=== PATIENT | male | born 1950 | race Caucasian/White ===

== ENCOUNTER → 2016-04-18 | Day surgery (SDC) | payer MEDICARE, OTHER ==
[~2016-04-18] MED LIST: LIDOCAINE 1% INJ-PF (10 MG/ML) 30 ML SDV ONE
== END ==
LOC: RAD 12:43
PROVIDERS: ATTEND Orthopaedic Surgery
PROC: BP08ZZZ Plain Radiography of Right Shoulder (ICD-10-PCS; principal; 2016-04-18)
DX: M25.511 Pain in right shoulder (principal)
CPT/HCPCS: 73222; 73040; 77002; A9576; J3490

== ENCOUNTER → 2016-08-27 | Outpatient (CLI) | payer MEDICARE, OTHER ==
--- NOTE | 2016-08-27 17:01 | RADIOLOGY REPORT (SQ) ---
EXAM DESCRIPTION: CHEST PA/LATERAL COMPLETED DATE/TIME: 08/27/2016 4:52 pm REASON FOR STUDY: SHORTNESS OF BREATH COMPARISON: 08/19/2014 EXAM PARAMETERS: NUMBER OF VIEWS: two views TECHNIQUE: Digital Frontal and Lateral radiographic views of the chest acquired. RADIATION DOSE: NA LIMITATIONS: none FINDINGS: LUNGS AND PLEURA: Scarring at the lung bases. No effusions. No opacities. MEDIASTINUM AND HILAR STRUCTURES: No masses or contour abnormalities. HEART AND VASCULAR STRUCTURES: Heart normal size. No evidence for failure. BONES: No acute findings. HARDWARE: None in the chest. OTHER: No other significant finding. IMPRESSION: Bibasilar scarring. No acute opacities. TECHNICAL DOCUMENTATION: JOB ID: [id number] [employer]- All Rights Reserved
== END ==
LOC: OD 16:15
PROVIDERS: ATTEND Family Medicine
DX: R06.02 Shortness of breath (principal)
CPT/HCPCS: 71020

== ENCOUNTER → 2016-12-28 | Outpatient (CLI) | payer MEDICARE, OTHER ==
--- NOTE | 2016-12-28 15:50 | RADIOLOGY REPORT (SQ) ---
EXAM DESCRIPTION: CTA CHEST COMPLETED DATE/TIME: 12/28/2016 3:25 pm REASON FOR STUDY: SHORTNESS OF BREATH R06.02 SHORTNESS OF BREATH COMPARISON: None. TECHNIQUE: CT scan of the chest performed using helical scanning technique with dynamic intravenous contrast injection. Images reviewed with lung, soft tissue and bone windows. Reconstructed coronal and sagittal MPR images reviewed. Additional 3 dimensional post-processing performed to develop Maximal Intensity Projection images ([place] P). All images stored on PACS. All CT scanners at this facility use dose modulation, iterative reconstruction, and/or weight based d osing when appropriate to reduce radiation dose to as low as reasonably achievable (ALARA). [facility]: Dose Right [facility]: CareDose [facility]: Dose Right [facility]: Teradose 4D [facility]: [employer] CONTRAST TYPE AND DOSE: contrast/concentration: Isovue 370.00 mg/ml; Total Contrast Delivered: 68.0 ml; Total Saline Delivered: 94.3 ml Contrast bolus optimized for the pulmonary arteries. Not diagnostic for the aorta. RENAL FUNCTION: Creatinine 0.9 BUN 17 RADIATION DOSE: Up-to-date CT equipment and radiation dose reduction techniques were employed. CTDIv ol: 9.4 - 12.2 mGy. DLP: 559 mGy-cm. . LIMITATIONS: None. FINDINGS: LUNGS AND PLEURA: There is a spiculated 14 mm nodule in the left lung on image 36 series 4 . AORTA AND GREAT VESSELS: No aneurysm. Contrast bolus not optimized for the aorta. HEART: No pericardial effusion. PULMONARY ARTERIES: There is a transition between bright contrast and less bright opacification in th e right lower lobe pulmonary artery. This is best seen on image 60 series 603 and image 72 series 60 4. On images 75 through 77 series 3 there is questionably a filling defect in the right pulmonary ar davian prior to the bifurcation. HILAR AND MEDIASTINAL STRUCTURES: No identified masses or abnormal nodes. HARDWARE: None in the chest. UPPER ABDOMEN: No significant findings. Limited exam. THYROID AND OTHER SOFT TISSUES: No masses. No adenopathy. BONES: There is a prominent lytic defect the posterior aspect of what appears to be the T7 vertebral body. 3D MIPS: Confirm above findings. OTHER: No other significant finding. IMPRESSION: 1. Spiculated 14 mm nodule in the left lung as described. Suspected metastasis at T7. 2. Positive for embolus in the right lower lobe artery with questionable small filling defect right main pulmonary artery immediately before the bifurcation. COMMENT: Quality ID # 436: Final reports with documentation of one or more dose reduction techniques (e.g., Automated exposure control, adjustment of the mA and/or kV according to patient size, use of iterative reconstruction technique) TECHNICAL DOCUMENTATION: JOB ID: [id number] [employer]- All Rights Reserved
== END ==
LOC: RAD 14:52
PROVIDERS: ATTEND Family Medicine
DX: R06.02 Shortness of breath (principal)
CPT/HCPCS: 71275

== ENCOUNTER → 2017-01-08 | Outpatient (CLI) | payer MEDICARE, OTHER ==
--- NOTE | 2017-01-09 08:45 | RADIOLOGY REPORT (SQ) ---
EXAM DESCRIPTION: PET CT SKULL/THIGH COMPLETED DATE/TIME: 01/08/2017 8:56 pm REASON FOR STUDY: LUNG CANCER C34.32 MALIGNANT NEOPLASM OF LOWER LOBE, LEFT BRONCHUS OR SAURAV COMPARISON: CT angio chest 12/28/2016 RADIONUCLIDE AND DOSE: 10.1 mCi F18 FDG The route of agent administration: Intravenous FASTING BLOOD SUGAR: 85 mg/dl CONTRAST TYPE AND DOSE: No CT contrast given. TECHNIQUE: Blood glucose level was verified. Above dose of FDG was injected intravenously. 2-D seg mented attenuation correction images were obtained from the base of the skull to the midthighs. Nonc ontrast CT images were obtained for attenuation correction and fusion with emission images. CT image s were performed without oral or intravenous contrast and are not sensitive for parenchymal lesions. A series of overlapping emission PET images were obtained. Images reviewed and manipulated at [facility] work station by the radiologist. Images stored on PACS. LIMITATIONS: None. FINDINGS: HEAD AND NECK: No areas of abnormal metabolic activity in the soft tissues of the head and neck. CHEST: In the left lower lobe, a spiculated 1.5 x 1.2 cm nodule is present on axial image 101, with S UV of 6.6. There are hypermetabolic mediastinal lymph nodes as follows: Prevascular 1.0 x 0.6 cm node image 91, SUV of 3 Sub- carinal 1.2 x 0.7 cm node image 102, SUV 6.0 Left lower hilum subcentimeter new lymph node difficult to measure on axial image 102, SUV 5.9 ABDOMEN AND PELVIS: No areas of abnormal metabolic activity in the abdomen or pelvis. Expected physi ologic activity is present in the genitourinary system and bowel. PROXIMAL LOWER EXTREMITIES: No areas of abnormal metabolic activity in the soft tissues of the lower extremities. BONES: A lytic lesion is present in the T7 vertebral body with destruction of the posterior vertebral body bony cortex, best shown on axial image 98. This has SUV of 11. Minimal ventral epidural tumor may be present. Other skeletal lesions are as follows: Left 4th rib laterally SUV 4.1 Right innominate bone superiorly SUV 6.2 Right innominate bone along the posterior acetabular roof SUV 9.7 Left sacrum at the S1 level SUV 10.2 Left innominate bone SUV 6.[address] FINDINGS: Degenerative changes in the cervical and lumbar spine. Minimal coronary karma ry calcifications. Small hiatal hernia OTHER: Liver background activity 2.4 SUV. Blood pool background activity 1.7 SUV IMPRESSION: Hypermetabolic left lung nodules worrisome for malignancy. Mediastinal adenopathy Bony metastatic lesions, the largest lesions are in T7, the left sacrum, and the right innominate bon e near the acetabulum roof TECHNICAL DOCUMENTATION: JOB ID: [id number] [employer]- All Rights Reserved
== END ==
LOC: RAD 17:20
PROVIDERS: ATTEND Internal Medicine
DX: C34.32 Malignant neoplasm of lower lobe, left bronchus or lung (principal)
CPT/HCPCS: 78815; A9552

== ENCOUNTER → 2017-03-13 | Outpatient (CLI) | payer MEDICARE, OTHER ==
--- NOTE | 2017-03-13 12:08 | RADIOLOGY REPORT (SQ) ---
EXAM DESCRIPTION: CT CHEST WITH; CT ABD/PELVIS WITH IV ONLY COMPLETED DATE/TIME: 03/13/2017 9:46 am REASON FOR STUDY: LUNG CA (C34.32) C34.32 MALIGNANT NEOPLASM OF LOWER LOBE, LEFT BRONCHUS OR SAURAV COMPARISON: CT angio chest 12/28/2016 PET-CT 01/08/2017 CONTRAST TYPE AND DOSE: contrast/concentration: Isovue 370.00 mg/ml; Total Contrast Delivered: 91.0 ml; Total Saline Delivered: 54.0 ml RENAL FUNCTION: Creatinine 0.9 TECHNIQUE: CT scan of the chest performed using helical scanning technique with dynamic intravenous contrast injection. Images reviewed with lung, soft tissue and bone windows. Reconstructed coronal a nd sagittal MPR images reviewed. All images stored on PACS. CT scan of the abdomen and pelvis performed with intravenous and without oral contrastusing helical s mekhi technique with dynamic intravenous contrast injection. Images reviewed with lung, soft tissu e and bone windows. Reconstructed coronal and sagittal MPR images reviewed. Delayed images for eval uation of the urinary system also acquired and evaluated. All images stored on PACS. All CT scanners at this facility use dose modulation, iterative reconstruction, and/or weight based d osing when appropriate to reduce radiation dose to as low as reasonably achievable (ALARA). [facility]: Dose Right [facility]: CareDose [facility]: Dose Right [facility]: Teradose 4D [facility]: [employer] RADIATION DOSE: CT Rad equipment meets quality standard of care and radiation dose reduction techniq ues were employed. CTDIvol: 6.3 - 8.0 mGy. DLP: 1123 mGy-cm. . LIMITATIONS: None. FINDINGS: CHEST: LUNGS AND PLEURA: Spiculated left lower lobe nodule is present, 1.2 x 1 cm in size on axial image 69 (was 1.5 x 1.2 cm on 01/08/2017). There are surrounding radiotherapy treatment markers on today's CT scan. Remainder of the lungs demonstrate minimal bibasilar atelectasis. Diffuse obstructive lung disease w ith hyperinflation and hyperlucency. No pleural effusion. No pneumothorax. HILAR AND MEDIASTINAL STRUCTURES: No identified masses or abnormal nodes. HEART AND VASCULAR STRUCTURES: No aneurysm or dissection. No central pulmonary emboli. No pericardi al effusion. Mild coronary artery calcification. HARDWARE: None. THYROID AND OTHER SOFT TISSUES: No masses. No adenopathy. BONES: Again, a lytic lesion is present in the posterior half of the T7 vertebral body, best shown on axial image 31. This is similar compared to PET-CT 01/08/2017. Rib metastatic lesions are more di fficult to appreciate on CT. OTHER: No other significant finding. ABDOMEN AND PELVIS: LIVER: Normal size. No masses. No dilated ducts. SPLEEN: Normal size. No focal lesions. PANCREAS: No masses. No significant calcifications. No adjacent inflammation or peripancreatic fluid collections. Pancreatic duct not dilated. GALLBLADDER: No identified stones by CT criteria. No inflammatory changes to suggest cholecystitis. ADRENAL GLANDS: No significant masses or asymmetry. RIGHT KIDNEY AND URETER: No solid masses. 1.4 cm right midpole renal cortical cyst. No significant calcification. No hydronephrosis or hydroureter. LEFT KIDNEY AND URETER: No solid masses. No significant calcification. No hydronephrosis or hydrouret er. AORTA AND VESSELS: No aneurysm. No dissection. Renal arteries, SMA, celiac without stenosis. RETROPERITONEUM: No retroperitoneal adenopathy, hemorrhage or masses. BOWEL AND PERITONEAL CAVITY: No masses or inflammatory changes. No free fluid or peritoneal masses. APPENDIX: Normal. ABDOMINAL WALL: No masses. Tiny fat containing umbilical hernia and bilateral inguinal hernias. BONES: There are new lytic metastatic lesions in L1, L2, and L3 vertebral bodies compared to 01/09/20 17 PET-CT. Stable lytic lesions in the right innominate bone, left sacrum, left innominate bone, and right posterior acetabular roof OTHER: No other significant finding. IMPRESSION: Slight decrease in primary left lower lobe lung mass compared to prior exams. Stable T7 vertebral body metastatic lesion, stable metastatic lesions in the bony pelvis New L1, L2, and L3 vertebral body metastatic lesions NORMAL CT OF THE ABDOMEN AND PELVIS WITH ORAL AND INTRAVENOUS CONTRAST. TECHNICAL DOCUMENTATION: JOB ID: [id number] Quality ID # 436: Final reports with documentation of one or more dose reduction techniques (e.g., Au tomated exposure control, adjustment of the mA and/or kV according to patient size, use of iterative reconstruction technique) 2010 [employer]- All Rights Reserved
== END ==
LOC: RAD 09:00
PROVIDERS: ATTEND Internal Medicine
DX: C34.32 Malignant neoplasm of lower lobe, left bronchus or lung (principal)
CPT/HCPCS: 71260; 74177

== ENCOUNTER → 2017-04-26 | Outpatient (CLI) | payer MEDICARE, OTHER ==
--- NOTE | 2017-04-26 11:54 | RADIOLOGY REPORT (SQ) ---
EXAM DESCRIPTION: CT ABD/PELVIS WITH IV ONLY COMPLETED DATE/TIME: 04/26/2017 10:47 am REASON FOR STUDY: LUNG CA (C34.32) C34.32 MALIGNANT NEOPLASM OF LOWER LOBE, LEFT BRONCHUS OR SAURAV COMPARISON: 03/13/2017 TECHNIQUE: CT scan of the abdomen and pelvis performed using helical scanning technique with dynamic intravenous contrast injection. No oral contrast. Images reviewed with lung, soft tissue, and bone windows. Reconstructed coronal and sagittal MPR images reviewed. Delayed images for evaluation of the urinary system also acquired. All images stored on PACS. All CT scanners at this facility use dose modulation, iterative reconstruction, and/or weight based d osing when appropriate to reduce radiation dose to as low as reasonably achievable (ALARA). [facility]: Dose Right [facility]: CareDose [facility]: Dose Right [facility]: Teradose 4D [facility]: [employer] CONTRAST TYPE AND DOSE: contrast/concentration: Isovue 370.00 mg/ml; Total Contrast Delivered: 91.0 ml; Total Saline Delivered: 51.9 ml RENAL FUNCTION: Not recorded. RADIATION DOSE: CT Rad equipment meets quality standard of care and radiation dose reduction techniq ues were employed. CTDIvol: 7.6 - 9.9 mGy. DLP: 1389 mGy-cm.. LIMITATIONS: None. FINDINGS: LOWER CHEST: See separate report of the CT of the chest. LIVER: Normal size. No masses. No dilated ducts. SPLEEN: Normal size. No focal lesions. PANCREAS: No masses. No significant calcifications. No adjacent inflammation or peripancreatic fluid collections. Pancreatic duct not dilated. GALLBLADDER: No identified stones by CT criteria. No inflammatory changes to suggest cholecystitis. ADRENAL GLANDS: No significant masses or asymmetry. RIGHT KIDNEY AND URETER: No solid masses. No significant calcifications. No hydronephrosis or hyd roureter. LEFT KIDNEY AND URETER: No solid masses. No significant calcifications. No hydronephrosis or hydr oureter. AORTA AND VESSELS: No aneurysm. No dissection. Renal arteries, SMA, celiac without stenosis. RETROPERITONEUM: No retroperitoneal adenopathy, hemorrhage or masses. BOWEL AND PERITONEAL CAVITY: No masses or inflammatory changes. No free fluid or peritoneal masses. APPENDIX: Normal. PELVIS: No mass. No free fluid. Normal bladder. ABDOMINAL WALL: No masses. No hernias. BONES: Metastatic disease is once again seen in lumbar spine and pelvis, appearing stable. OTHER: No other significant finding. IMPRESSION: Osseous metastases that appear to be stable. TECHNICAL DOCUMENTATION: JOB ID: [id number] Quality ID # 436: Final reports with documentation of one or more dose reduction techniques (e.g., Au tomated exposure control, adjustment of the mA and/or kV according to patient size, use of iterative reconstruction technique) 2010 [employer]- All Rights Reserved Reading location - IP/workstation name: [email or web address]
--- NOTE | 2017-04-26 12:12 | RADIOLOGY REPORT (SQ) ---
EXAM DESCRIPTION: CT CHEST WITH COMPLETED DATE/TIME: 04/26/2017 10:47 am REASON FOR STUDY: LUNG CA (C34.32) C34.32 MALIGNANT NEOPLASM OF LOWER LOBE, LEFT BRONCHUS OR SAURAV COMPARISON: 03/13/2017 TECHNIQUE: CT scan of the chest performed using helical scanning technique with dynamic intravenous contrast injection. Images reviewed with lung, soft tissue and bone windows. Reconstructed coronal and sagittal MPR images reviewed. All images stored on PACS. All CT scanners at this facility use dose modulation, iterative reconstruction, and/or weight based d osing when appropriate to reduce radiation dose to as low as reasonably achievable (ALARA). [facility]: Dose Right [facility]: CareDose [facility]: Dose Right [facility]: Teradose 4D [facility]: [employer] CONTRAST TYPE AND DOSE: 91 cc Isovue 370- low osmolar. RENAL FUNCTION: Not recorded RADIATION DOSE: 49 mGy cm LIMITATIONS: None. FINDINGS: LUNGS AND PLEURA: There is a spiculated lesion in the superior aspect of the left lower lo be seen best on image 71 series 6. This measures 11 mm in AP diameter and 9 mm in transverse diamete r. This appears to be slightly smaller than on the study from February. No new pulmonary nodule is s een. HILAR AND MEDIASTINAL STRUCTURES: No identified masses or abnormal nodes. HEART AND VASCULAR STRUCTURES: No aneurysm or dissection. No central pulmonary emboli. No pericardi al effusion. HARDWARE: None in the chest. UPPER ABDOMEN: See separate report of the CT of the abdomen. THYROID AND OTHER SOFT TISSUES: No masses. No adenopathy. BONES: Once again the T7 metastasis is seen. There appears to be a metastatic lesion and the left 3r d or 4th rib. OTHER: No other significant finding. IMPRESSION: 1. The primary spiculated lesion in apical aspect of the left lower lobe is slightly sm aller than on the study from March 13. 2. Osseous metastases are once again seen with no obvious change. TECHNICAL DOCUMENTATION: JOB ID: [id number] Quality ID # 436: Final reports with documentation of one or more dose reduction techniques (e.g., Au tomated exposure control, adjustment of the mA and/or kV according to patient size, use of iterative reconstruction technique) 2010 [employer]- All Rights Reserved Reading location - IP/workstation name: [email or web address]
--- NOTE | 2017-04-26 12:22 | RADIOLOGY REPORT (SQ) ---
EXAM DESCRIPTION: CT HEAD COMBO COMPLETED DATE/TIME: 04/26/2017 10:47 am REASON FOR STUDY: DIZZINESS AND HEADACHES C34.32 MALIGNANT NEOPLASM OF LOWER LOBE, LEFT BRONCHUS OR SAURAV COMPARISON: 04/26/2009 TECHNIQUE: Axial images acquired through the brain without and with intravenous contrast. Images re viewed with bone, brain and subdural windows. Images stored on PACS. All CT scanners at this facility use dose modulation, iterative reconstruction, and/or weight based d osing when appropriate to reduce radiation dose to as low as reasonably achievable (ALARA). [facility]: Dose Right [facility]: CareDose [facility]: Dose Right [facility]: Teradose 4D [facility]: [employer] CONTRAST TYPE AND DOSE: 91 cc Isovue 370- low osmolar. RENAL FUNCTION: Not recorded RADIATION DOSE: CT Rad equipment meets quality standard of care and radiation dose reduction techniq ues were employed. CTDIvol: 49.0 mGy. DLP: 881 mGy-cm.. LIMITATIONS: None. FINDINGS: VENTRICLES: Normal size and contour. CEREBRUM: No hemorrhage. No enhancing lesions. 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 CEREBELLUM: No masses. No hemorrhage. No alteration of density. No evidence for acute infarction. No enhancing lesions. EXTRA-AXIAL SPACES: No fluid collections. No enhancing lesions. ORBITS AND GLOBE: No intra- or extraconal masses. Normal contour of globe without masses. CALVARIUM: No fracture. PARANASAL SINUSES: No fluid or mucosal thickening. SOFT TISSUES: No mass or hematoma. OTHER: No other significant finding. IMPRESSION: There are stable old ischemic changes with no evidence of metastatic disease to the brai n or calvarium. EVIDENCE OF ACUTE STROKE: NO. TECHNICAL DOCUMENTATION: JOB ID: [id number] Quality ID # 436: Final reports with documentation of one or more dose reduction techniques (e.g., Au tomated exposure control, adjustment of the mA and/or kV according to patient size, use of iterative reconstruction technique) 2010 [employer]- All Rights Reserved Reading location - IP/workstation name: [email or web address]
== END ==
LOC: RAD 09:21
PROVIDERS: ATTEND Internal Medicine
DX: C34.32 Malignant neoplasm of lower lobe, left bronchus or lung (principal)
CPT/HCPCS: 70470; 71260; 74177

== ENCOUNTER → 2017-06-07 | Outpatient (CLI) | payer MEDICARE, OTHER ==
--- NOTE | 2017-06-07 13:23 | RADIOLOGY REPORT (SQ) ---
EXAM DESCRIPTION: FOOT RIGHT COMPLETE COMPLETED DATE/TIME: 06/07/2017 1:13 pm REASON FOR STUDY: PAIN IN RIGHT FOOT M79.671 PAIN IN RIGHT FOOT COMPARISON: None. NUMBER OF VIEWS: Three views. TECHNIQUE: AP, lateral and oblique radiographic images acquired of the right foot. LIMITATIONS: None. FINDINGS: MINERALIZATION: Normal. BONES: No acute fracture or dislocation. No worrisome bone lesions. JOINTS: Degenerative joint changes are present in the 1st metatarsal-phalangeal joint. SOFT TISSUES: No soft tissue swelling. No foreign body. OTHER: No other significant finding. IMPRESSION: Degenerative joint disease in the 1st metatarsal-phalangeal joint appear TECHNICAL DOCUMENTATION: JOB ID: [id number] [employer]- All Rights Reserved Reading location - IP/workstation name: [email or web address]
[2017-06-07 14:10] LABS: ANION GAP 12 (5-19); BLOOD UREA NITROGEN 24 mg/dL (7-20); CALCIUM 9.8 mg/dL (8.4-10.2); CARBON DIOXIDE 30 mmol/L (22-30); CHLORIDE 102 mmol/L (98-107); GLUCOSE 178 mg/dL (75-110); POTASSIUM 4.5 mmol/L (3.6-5.0); SODIUM 143.6 mmol/L (137-145); URIC ACID 8.4 mg/dL (3.5-8.5)
== END ==
LOC: OD 12:33
PROVIDERS: ATTEND Family Medicine
DX: M79.671 Pain in right foot (principal)
CPT/HCPCS: 36415; 80048; 84550

== ENCOUNTER → 2017-06-28 | Outpatient (CLI) | payer MEDICARE, OTHER ==
--- NOTE | 2017-06-28 10:24 | RADIOLOGY REPORT (SQ) ---
EXAM DESCRIPTION: CT CHEST WITH COMPLETED DATE/TIME: 06/28/2017 8:40 am REASON FOR STUDY: LUNG CA (C34.32) C34.32 MALIGNANT NEOPLASM OF LOWER LOBE, LEFT BRONCHUS OR SAURAV COMPARISON: 04/26/2017 TECHNIQUE: CT scan of the chest performed using helical scanning technique with dynamic intravenous contrast injection. Images reviewed with lung, soft tissue and bone windows. Reconstructed coronal and sagittal MPR images reviewed. All images stored on PACS. All CT scanners at this facility use dose modulation, iterative reconstruction, and/or weight based d osing when appropriate to reduce radiation dose to as low as reasonably achievable (ALARA). [facility]: Dose Right [facility]: CareDose [facility]: Dose Right [facility]: Teradose 4D [facility]: [employer] CONTRAST TYPE AND DOSE: See separate report of the same date. RENAL FUNCTION: See separate report of the same date. RADIATION DOSE: . LIMITATIONS: None. FINDINGS: LUNGS AND PLEURA: Spiculated nodule superior segment left lower lobe measures about 9 x 11 mm, not significantly changed. No new nodules are identified. Centrilobular emphysema. No effusio ns. HILAR AND MEDIASTINAL STRUCTURES: No identified masses or abnormal nodes. HEART AND VASCULAR STRUCTURES: No aneurysm or dissection. No central pulmonary emboli. No pericardi al effusion. HARDWARE: None in the chest. UPPER ABDOMEN: See separate report of the CT of the abdomen. THYROID AND OTHER SOFT TISSUES: No masses. No adenopathy. BONES: Mixed sclerotic lytic lesion T7, left 4th rib unchanged. OTHER: No other significant finding. IMPRESSION: Stable pulmonary nodule left lower lobe. Stable bone metastasis. TECHNICAL DOCUMENTATION: JOB ID: [id number] Quality ID # 436: Final reports with documentation of one or more dose reduction techniques (e.g., Au tomated exposure control, adjustment of the mA and/or kV according to patient size, use of iterative reconstruction technique) 2010 [employer]- All Rights Reserved Reading location - IP/workstation name: Unknown
--- NOTE | 2017-06-28 11:26 | RADIOLOGY REPORT (SQ) ---
EXAM DESCRIPTION: CT ABD/PELVIS WITH IV ONLY COMPLETED DATE/TIME: 06/28/2017 8:40 am REASON FOR STUDY: LUNG CA (C34.32) C34.32 MALIGNANT NEOPLASM OF LOWER LOBE, LEFT BRONCHUS OR SAURAV COMPARISON: 04/26/2017 TECHNIQUE: CT scan of the abdomen and pelvis performed using helical scanning technique with dynamic intravenous contrast injection. No oral contrast. Images reviewed with lung, soft tissue, and bone windows. Reconstructed coronal and sagittal MPR images reviewed. Delayed images for evaluation of the urinary system also acquired. All images stored on PACS. All CT scanners at this facility use dose modulation, iterative reconstruction, and/or weight based d osing when appropriate to reduce radiation dose to as low as reasonably achievable (ALARA). [facility]: Dose Right [facility]: CareDose [facility]: Dose Right [facility]: Teradose 4D [facility]: [employer] CONTRAST TYPE AND DOSE: 100 cc Isovue 300- low osmolar. RENAL FUNCTION: GFR > 60. RADIATION DOSE: . LIMITATIONS: None. FINDINGS: LOWER CHEST: See separate report of the CT of the chest. LIVER: Normal size. No masses. No dilated ducts. SPLEEN: Benign hemangiomas. PANCREAS: No masses. No significant calcifications. No adjacent inflammation or peripancreatic fluid collections. Pancreatic duct not dilated. GALLBLADDER: No identified stones by CT criteria. No inflammatory changes to suggest cholecystitis. ADRENAL GLANDS: No significant masses or asymmetry. RIGHT KIDNEY AND URETER: No solid masses. No significant calcifications. No hydronephrosis or hyd roureter. LEFT KIDNEY AND URETER: No solid masses. No significant calcifications. No hydronephrosis or hydr oureter. AORTA AND VESSELS: No aneurysm. No dissection. Renal arteries, SMA, celiac without stenosis. RETROPERITONEUM: No retroperitoneal adenopathy, hemorrhage or masses. BOWEL AND PERITONEAL CAVITY: No masses or inflammatory changes. No free fluid or peritoneal masses. APPENDIX: Normal. PELVIS: No mass. No free fluid. Normal bladder. ABDOMINAL WALL: No masses. No hernias. BONES: Stable lytic lesions in the pelvis and sacrum. OTHER: No other significant finding. IMPRESSION: Stable bone metastasis. No significant change. TECHNICAL DOCUMENTATION: JOB ID: [id number] Quality ID # 436: Final reports with documentation of one or more dose reduction techniques (e.g., Au tomated exposure control, adjustment of the mA and/or kV according to patient size, use of iterative reconstruction technique) 2010 [employer]- All Rights Reserved Reading location - IP/workstation name: Unknown
== END ==
LOC: RAD 08:00
PROVIDERS: ATTEND Physician Assistant Medical
DX: C34.32 Malignant neoplasm of lower lobe, left bronchus or lung (principal); C79.51 Secondary malignant neoplasm of bone
CPT/HCPCS: 71260; 74177

== ENCOUNTER → 2017-08-29 | Outpatient (CLI) | payer MEDICARE, OTHER ==
--- NOTE | 2017-08-29 09:41 | RADIOLOGY REPORT (SQ) ---
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 Images reviewed with lung, soft tissue and bone windows. Reconstructed coronal a nd sagittal MPR images reviewed. All images stored on PACS. CT scan of the abdomen and pelvis performed with intravenous and without oral contrastusing helical s mekhi technique with dynamic intravenous contrast injection. Images reviewed with lung, soft tissu e and bone windows. Reconstructed coronal and sagittal MPR images reviewed. Delayed images for eval uation of the urinary system also acquired and evaluated. All images stored on PACS. All CT scanners at this facility use dose modulation, iterative reconstruction, and/or weight based d osing when appropriate to reduce radiation dose to as low as reasonably achievable (ALARA). [facility]: Dose Right [facility]: CareDose [facility]: Dose Right [facility]: Teradose 4D [facility]: [employer] RADIATION DOSE: CT Rad equipment meets quality standard of care and radiation dose reduction techniq ues were employed. CTDIvol: 8.0 - 11.4 mGy. DLP: 1526 mGy-cm. . LIMITATIONS: None. FINDINGS: CHEST: LUNGS AND PLEURA: Minimal left lower lobe bandlike scarring is present adjacent to radiotherapy marke rs on axial images 63-66. No significant residual pulmonary nodule. There is hyperinflation from obstructive disease. Lungs are otherwise unremarkable. No pleural effu sions. No pneumothorax. No other worrisome pulmonary nodules. HILAR AND MEDIASTINAL STRUCTURES: No identified masses or abnormal nodes. HEART AND VASCULAR STRUCTURES: No aneurysm or dissection. No central pulmonary emboli. No pericardi al effusion. HARDWARE: None. THYROID AND OTHER SOFT TISSUES: No masses. No adenopathy. BONES: Stable T7 vertebral body sclerotic bony metastatic lesion OTHER: No other significant finding. ABDOMEN AND PELVIS: LIVER: Normal size. No masses. No dilated ducts. SPLEEN: Normal size. No focal lesions. PANCREAS: No masses. No significant calcifications. No adjacent inflammation or peripancreatic fluid collections. Pancreatic duct not dilated. GALLBLADDER: No identified stones by CT criteria. No inflammatory changes to suggest cholecystitis. ADRENAL GLANDS: No significant masses or asymmetry. RIGHT KIDNEY AND URETER: No solid masses. 1.4 cm cyst right mid-pole kidney. No significant calcifi cation. No hydronephrosis or hydroureter. LEFT KIDNEY AND URETER: No solid masses. No significant calcification. No hydronephrosis or hydrouret er. AORTA AND VESSELS: No aneurysm. No dissection. Renal arteries, SMA, celiac without stenosis. RETROPERITONEUM: No retroperitoneal adenopathy, hemorrhage or masses. BOWEL AND PERITONEAL CAVITY: No masses or inflammatory changes. No free fluid or peritoneal masses. APPENDIX: Normal. ABDOMINAL WALL: No masses. No hernias. PELVIS: No mass or free fluid. Normal bladder. BONES: Stable sclerotic metastatic lesions in the right acetabular roof and left S1 level OTHER: No other significant finding. IMPRESSION: Prior lung lesion in the left lower lobe is no longer visualized Stable bony metastatic sclerotic lesions in the T7, the right acetabular roof and the left S1 level. TECHNICAL DOCUMENTATION: JOB ID: [id number] Quality ID # 436: Final reports with documentation of one or more dose reduction techniques (e.g., Au tomated exposure control, adjustment of the mA and/or kV according to patient size, use of iterative reconstruction technique) 2010 [employer]- All Rights Reserved Reading location - IP/workstation name: [email or web address]
== END ==
LOC: RAD 08:37
PROVIDERS: ATTEND Physician Assistant Medical
DX: C34.32 Malignant neoplasm of lower lobe, left bronchus or lung (principal); C79.51 Secondary malignant neoplasm of bone
CPT/HCPCS: 71260; 74177

== ENCOUNTER → 2017-11-21 | Outpatient (CLI) | payer MEDICARE, OTHER ==
--- NOTE | 2017-11-21 11:14 | RADIOLOGY REPORT (SQ) ---
EXAM DESCRIPTION: CT CHEST WITH COMPLETED DATE/TIME: 11/21/2017 10:40 am REASON FOR STUDY: LUNG CA C34.32 MALIGNANT NEOPLASM OF LOWER LOBE, LEFT BRONCHUS OR SAURAV COMPARISON: 08/29/2017. 06/28/2017. TECHNIQUE: CT scan of the chest performed using helical scanning technique with dynamic intravenous contrast injection. Images reviewed with lung, soft tissue and bone windows. Reconstructed coronal and sagittal MPR and MIP images reviewed. All images stored on PACS. All CT scanners at this facility use dose modulation, iterative reconstruction, and/or weight based d osing when appropriate to reduce radiation dose to as low as reasonably achievable (ALARA). [facility]: Dose Right [facility]: CareDose [facility]: Dose Right [facility]: Teradose 4D [facility]: [employer] CONTRAST TYPE AND DOSE: Please see the abdominal CT report from same date. RENAL FUNCTION: As above. RADIATION DOSE: . LIMITATIONS: None. FINDINGS: LUNGS AND PLEURA: Minimal left lower lobe scar. No developing lesions. No pleural diseas e. HILAR AND MEDIASTINAL STRUCTURES: No identified masses or abnormal nodes. HEART AND VASCULAR STRUCTURES: Mild chronic anterior pericardial thickening. Moderate coronary calci fication. No aortic aneurysm or dissection or central pulmonary embolus. HARDWARE: None in the chest. UPPER ABDOMEN: No significant findings. Limited exam. THYROID AND OTHER SOFT TISSUES: No masses. No adenopathy. BONES: T7 sclerotic focus in the spine, stable. No developing lesions. OTHER: No other significant finding. IMPRESSION: Stable chest. No acute abdominopelvic abnormality. Findings as above. TECHNICAL DOCUMENTATION: JOB ID: [id number] Quality ID # 436: Final reports with documentation of one or more dose reduction techniques (e.g., Au tomated exposure control, adjustment of the mA and/or kV according to patient size, use of iterative reconstruction technique) 2010 [employer]- All Rights Reserved Reading location - IP/workstation name: [email or web address]
--- NOTE | 2017-11-21 11:45 | RADIOLOGY REPORT (SQ) ---
EXAM DESCRIPTION: CT ABD/PELVIS WITH IV ONLY COMPLETED DATE/TIME: 11/21/2017 10:40 am REASON FOR STUDY: LUNG CA C34.32 MALIGNANT NEOPLASM OF LOWER LOBE, LEFT BRONCHUS OR SAURAV COMPARISON: PET-CT 01/08/2017 CT abdomen pelvis 03/13/2017, 04/26/2017, 06/28/2017, 08/29/2017 no sub on each TECHNIQUE: CT scan of the abdomen and pelvis performed using helical scanning technique with dynamic intravenous contrast injection. No oral contrast. Images reviewed with lung, soft tissue, and bone windows. Reconstructed coronal and sagittal MPR images reviewed. Delayed images for evaluation of the urinary system also acquired. All images stored on PACS. All CT scanners at this facility use dose modulation, iterative reconstruction, and/or weight based d osing when appropriate to reduce radiation dose to as low as reasonably achievable (ALARA). [facility]: Dose Right [facility]: CareDose [facility]: Dose Right [facility]: Teradose 4D [facility]: [employer] CONTRAST TYPE AND DOSE: contrast/concentration: Isovue 350.00 mg/ml; Total Contrast Delivered: 91.0 ml; Total Saline Delivered: 70.0 ml RENAL FUNCTION: Creatinine 1.2 RADIATION DOSE: CT Rad equipment meets quality standard of care and radiation dose reduction techniq ues were employed. CTDIvol: 6.2 - 8.4 mGy. DLP: 1133 mGy-cm.. LIMITATIONS: None. FINDINGS: LOWER CHEST: No significant findings. No nodules or infiltrates. LIVER: Normal size. No masses. No dilated ducts. SPLEEN: Normal size. No focal lesions. PANCREAS: No masses. No significant calcifications. No adjacent inflammation or peripancreatic fluid collections. Pancreatic duct not dilated. GALLBLADDER: No identified stones by CT criteria. No inflammatory changes to suggest cholecystitis. ADRENAL GLANDS: No significant masses or asymmetry. RIGHT KIDNEY AND URETER: No solid masses. 1.4 cm cyst right mid-pole kidney. No significant calcifi cations. No hydronephrosis or hydroureter. LEFT KIDNEY AND URETER: No solid masses. No significant calcifications. No hydronephrosis or hydr oureter. AORTA AND VESSELS: No aneurysm. No dissection. Renal arteries, SMA, celiac without stenosis. RETROPERITONEUM: No retroperitoneal adenopathy, hemorrhage or masses. BOWEL AND PERITONEAL CAVITY: No masses or inflammatory changes. No free fluid or peritoneal masses. APPENDIX: Normal. PELVIS: No mass. No free fluid. Normal bladder. ABDOMINAL WALL: No masses. No hernias. BONES: No significant or acute findings. OTHER: No other significant finding. IMPRESSION: No CT evidence of metastatic lung cancer over the abdomen and pelvis TECHNICAL DOCUMENTATION: JOB ID: [id number] Quality ID # 436: Final reports with documentation of one or more dose reduction techniques (e.g., Au tomated exposure control, adjustment of the mA and/or kV according to patient size, use of iterative reconstruction technique) 2010 [email or web address]- All Rights Reserved Reading location - IP/workstation name: [email or web address]
== END ==
LOC: RAD 10:08
PROVIDERS: ATTEND Internal Medicine
DX: C34.32 Malignant neoplasm of lower lobe, left bronchus or lung (principal)
CPT/HCPCS: 71260; 74177

== ENCOUNTER → 2018-02-19 | Outpatient (CLI) | payer MEDICARE, OTHER ==
--- NOTE | 2018-02-19 08:52 | RADIOLOGY REPORT (SQ) ---
EXAM DESCRIPTION: CT CHEST WITH; CT ABD/PELVIS WITH IV ONLY COMPLETED DATE/TIME: 02/19/2018 8:19 am REASON FOR STUDY: LUNG CA C34.32 MALIGNANT NEOPLASM OF LOWER LOBE, LEFT BRONCHUS OR SAURAV COMPARISON: 11/21/2017. CONTRAST TYPE AND DOSE: contrast/concentration: Isovue 350.00 mg/ml; Total Contrast Delivered: 96.0 ml; Total Saline Delivered: 71.0 ml RENAL FUNCTION: Not provided. TECHNIQUE: CT scan of the chest performed using helical scanning technique with dynamic intravenous contrast injection. Images reviewed with lung, soft tissue and bone windows. Reconstructed coronal a nd sagittal MPR images reviewed. All images stored on PACS. CT scan of the abdomen and pelvis performed with intravenous and with oral contrastusing helical scan sanford technique with dynamic intravenous contrast injection. Images reviewed with lung, soft tissue a nd bone windows. Reconstructed coronal and sagittal MPR images reviewed. Delayed images for evaluat ion of the urinary system also acquired and evaluated. All images stored on PACS. All CT scanners at this facility use dose modulation, iterative reconstruction, and/or weight based d osing when appropriate to reduce radiation dose to as low as reasonably achievable (ALARA). [facility]: Dose Right [facility]: CareDose [facility]: Dose Right [facility]: Teradose 4D [facility]: xiao qu [employer] RADIATION DOSE: CT Rad equipment meets quality standard of care and radiation dose reduction techniq ues were employed. CTDIvol: 6.5 - 8.0 mGy. DLP: 1079 mGy-cm. . LIMITATIONS: None. FINDINGS: CHEST: LUNGS AND PLEURA: Minimal scar in the left lung with regional metallic clips suggested. Stable appea trish. No developing lesions. No pleural disease. HILAR AND MEDIASTINAL STRUCTURES: No identified masses or abnormal nodes. HEART AND VASCULAR STRUCTURES: Mild pericardial fluid. Moderate coronary calcification. No aortic a neurysm or dissection. HARDWARE: None. THYROID AND OTHER SOFT TISSUES: No masses. No adenopathy. BONES: For chronic T7 mixed sclerotic/ lytic lesion. Potential hemangioma. Tiny T5 vertebral sclero tic focus also suggested. OTHER: No other significant finding. ABDOMEN AND PELVIS: LIVER: Fatty. No lesions. SPLEEN: Several nodular enhancing foci, likely hemangiomas. Stable appearance. PANCREAS: No masses. No significant calcifications. No adjacent inflammation or peripancreatic fluid collections. Pancreatic duct not dilated. GALLBLADDER: No identified stones by CT criteria. No inflammatory changes to suggest cholecystitis. ADRENAL GLANDS: No significant masses or asymmetry. RIGHT KIDNEY AND URETER: No solid masses. No significant calcification. No hydronephrosis or hydroure ter. LEFT KIDNEY AND URETER: No solid masses. No significant calcification. No hydronephrosis or hydrouret er. AORTA AND VESSELS: Atherosclerotic. No arterial occlusion or venous clot. RETROPERITONEUM: No retroperitoneal adenopathy, hemorrhage or masses. BOWEL AND PERITONEAL CAVITY: No masses or inflammatory changes. No free fluid or peritoneal masses. APPENDIX: Normal. ABDOMINAL WALL: No masses. No hernias. PELVIS: Prostate enlargement. Normal bladder. No pelvic mass or free fluid. BONES: Stable sclerotic pelvic lesions. OTHER: No other significant finding. IMPRESSION: 1. Stable chest. No developing lesions. Sclerotic bone lesions, unchanged. 2. Stable abdomen and pelvis. Includes stable sclerotic bone lesions. TECHNICAL DOCUMENTATION: JOB ID: [id number] Quality ID # 436: Final reports with documentation of one or more dose reduction techniques (e.g., Au tomated exposure control, adjustment of the mA and/or kV according to patient size, use of iterative reconstruction technique) 2010 [employer]- All Rights Reserved Reading location - IP/workstation name: [email or web address]
== END ==
LOC: RAD 07:34
PROVIDERS: ATTEND Physician Assistant Medical
DX: C34.32 Malignant neoplasm of lower lobe, left bronchus or lung (principal)
CPT/HCPCS: 71260; 74177; 82565

== ENCOUNTER → 2018-05-21 | Outpatient (CLI) | payer MEDICARE, OTHER ==
--- NOTE | 2018-05-21 10:31 | RADIOLOGY REPORT (SQ) ---
EXAM DESCRIPTION: CT CHEST WITH COMPLETED DATE/TIME: 05/21/2018 9:29 am REASON FOR STUDY: LUNG CA (C34.32) C34.32 MALIGNANT NEOPLASM OF LOWER LOBE, LEFT BRONCHUS OR SAURAV COMPARISON: 02/19/2018 TECHNIQUE: CT scan of the chest performed using helical scanning technique with dynamic intravenous contrast injection. Images reviewed with lung, soft tissue and bone windows. Reconstructed coronal and sagittal MPR and MIP images reviewed. All images stored on PACS. All CT scanners at this facility use dose modulation, iterative reconstruction, and/or weight based d osing when appropriate to reduce radiation dose to as low as reasonably achievable (ALARA). [facility]: Dose Right [facility]: CareDose [facility]: Dose Right [facility]: Teradose 4D [facility]: [employer] CONTRAST TYPE AND DOSE: contrast/concentration: Isovue 350.00 mg/ml; Total Contrast Delivered: 100.0 ml; Total Saline Delivered: 70.0 ml 100 cc RENAL FUNCTION: BUN 16, creatinine 1.1 RADIATION DOSE: CT Rad equipment meets quality standard of care and radiation dose reduction techniq ues were employed. CTDIvol: 9.8 - 13.4 mGy. DLP: 1470 mGy-cm. . LIMITATIONS: None. FINDINGS: LUNGS AND PLEURA: Stable posttreatment changes within the left lower lobe with unchanged l inear scarring. No new nodules or masses. Emphysematous change with stable bibasilar scarring. No pleural effusion, pneumothorax or new airspace disease. HILAR AND MEDIASTINAL STRUCTURES: No identified masses or abnormal nodes. HEART AND VASCULAR STRUCTURES: No aneurysm. No dissection. Scattered aortic atherosclerosis. Scatt ered three-vessel coronary atherosclerosis. HARDWARE: None in the chest. UPPER ABDOMEN: See separate report of the CT of the abdomen. THYROID AND OTHER SOFT TISSUES: No masses. No adenopathy. BONES: Stable T6 sclerotic lesion. No new lytic or blastic lesions. No acute bony abnormality. OTHER: No other significant finding. IMPRESSION: 1. Stable appearance of the chest without evidence of new intrathoracic disease. Stabl e thoracic sclerotic lesions. 2. No evidence of acute intra thoracic process. TECHNICAL DOCUMENTATION: JOB ID: [id number] Quality ID # 436: Final reports with documentation of one or more dose reduction techniques (e.g., Au tomated exposure control, adjustment of the mA and/or kV according to patient size, use of iterative reconstruction technique) 2010 [facility] [employer]- All Rights Reserved Reading location - IP/workstation name: [email or web address]
--- NOTE | 2018-05-21 10:55 | RADIOLOGY REPORT (SQ) ---
EXAM DESCRIPTION: CT ABD/PELVIS WITH IV ONLY COMPLETED DATE/TIME: 05/21/2018 9:29 am REASON FOR STUDY: LUNG CA (C34.32) C34.32 MALIGNANT NEOPLASM OF LOWER LOBE, LEFT BRONCHUS OR SAURAV COMPARISON: 02/19/2018 TECHNIQUE: CT scan of the abdomen and pelvis performed using helical scanning technique with dynamic intravenous contrast injection. No oral contrast. Images reviewed with lung, soft tissue, and bone windows. Reconstructed coronal and sagittal MPR images reviewed. Delayed images for evaluation of the urinary system also acquired. All images stored on PACS. All CT scanners at this facility use dose modulation, iterative reconstruction, and/or weight based d osing when appropriate to reduce radiation dose to as low as reasonably achievable (ALARA). [facility]: Dose Right [facility]: CareDose [facility]: Dose Right [facility]: Teradose 4D [facility]: [employer] CONTRAST TYPE AND DOSE: 100 cc, Isovue 350 RENAL FUNCTION: BUN 16, creatinine 1.1 RADIATION DOSE: . LIMITATIONS: None. FINDINGS: LOWER CHEST: See separate report of the CT of the chest. LIVER: Normal size. No masses. No dilated ducts. SPLEEN: Normal size. No focal lesions. PANCREAS: No masses. No significant calcifications. No adjacent inflammation or peripancreatic fluid collections. Pancreatic duct not dilated. GALLBLADDER: No identified stones by CT criteria. No inflammatory changes to suggest cholecystitis. ADRENAL GLANDS: No significant masses or asymmetry. RIGHT KIDNEY AND URETER: No solid masses. Unchanged right renal cyst. No significant calcification s. No hydronephrosis or hydroureter. LEFT KIDNEY AND URETER: No solid masses. No significant calcifications. No hydronephrosis or hydr oureter. AORTA AND VESSELS: Aortoiliac atherosclerosis. No aneurysm. Patent celiac, SMA, bilateral renals an d CHLOE. RETROPERITONEUM: No retroperitoneal adenopathy, hemorrhage or masses. BOWEL AND PERITONEAL CAVITY: No masses or inflammatory changes. No free fluid or peritoneal masses. APPENDIX: Normal. PELVIS: Unremarkable urinary bladder. Prostatomegaly with scattered calcifications, stable. No pelv ic adenopathy or free fluid. ABDOMINAL WALL: Small fat containing umbilical hernia. No discrete masses. BONES: No acute bony abnormality. No new lytic or blastic osseous lesions. Unchanged sclerotic lesi ons within the bilateral ilium. Lower lumbar spondylosis and facet arthropathy. OTHER: No other significant finding. IMPRESSION: No evidence of new metastatic within the abdomen or pelvis. Stable pelvic sclerotic les ions. No evidence of acute intra-abdominal/pelvic process. TECHNICAL DOCUMENTATION: JOB ID: [id number] Quality ID # 436: Final reports with documentation of one or more dose reduction techniques (e.g., Au tomated exposure control, adjustment of the mA and/or kV according to patient size, use of iterative reconstruction technique) 2010 [employer]- All Rights Reserved Reading location - IP/workstation name: [email or web address]
== END ==
LOC: RAD 08:05
PROVIDERS: ATTEND Internal Medicine
DX: C34.32 Malignant neoplasm of lower lobe, left bronchus or lung (principal)
CPT/HCPCS: 71260; 74177

== ENCOUNTER → 2018-09-05 | Outpatient (CLI) | payer MEDICARE, OTHER ==
--- NOTE | 2018-09-05 11:28 | RADIOLOGY REPORT (SQ) ---
EXAM DESCRIPTION: CT CHEST WITH; CT ABD/PELVIS WITH IV ONLY COMPLETED DATE/TIME: 09/05/2018 9:24 am; 09/05/2018 9:23 am REASON FOR STUDY: C34.32 MALIGNANT NEOPLASM OF LOWER LOBE, LEFT BRONCHUS OR LUNG C34.32 MALIGNANT N EOPLASM OF LOWER LOBE, LEFT BRONCHUS OR SAURAV COMPARISON: CT chest abdomen pelvis 05/21/2018, 11/21/2017, 08/29/2017, 06/28/2017 PET-CT 01/08/2017 CONTRAST TYPE AND DOSE: contrast/concentration: Isovue 350.00 mg/ml; Total Contrast Delivered: 100.0 ml; Total Saline Delivered: 70.0 ml RENAL FUNCTION: Creatinine 1.3 TECHNIQUE: CT scan of the chest performed using helical scanning technique with dynamic intravenous contrast injection. Images reviewed with lung, soft tissue and bone windows. Reconstructed coronal a nd sagittal MPR images reviewed. All images stored on PACS. CT scan of the abdomen and pelvis performed with intravenous and without oral contrastusing helical s mekhi technique with dynamic intravenous contrast injection. Images reviewed with lung, soft tissu e and bone windows. Reconstructed coronal and sagittal MPR images reviewed. Delayed images for eval uation of the urinary system also acquired and evaluated. All images stored on PACS. All CT scanners at this facility use dose modulation, iterative reconstruction, and/or weight based d osing when appropriate to reduce radiation dose to as low as reasonably achievable (ALARA). [facility]: Dose Right [facility]: CareDose [facility]: Dose Right [facility]: Teradose 4D [facility]: [employer] RADIATION DOSE: CT Rad equipment meets quality standard of care and radiation dose reduction techniq ues were employed. CTDIvol: 5.4 - 7.4 mGy. DLP: 974 mGy-cm. . LIMITATIONS: None. FINDINGS: CHEST: LUNGS AND PLEURA: Post radiotherapy treatment of a mass in the superior segment left lower lobe. A s piculated scar about 1 cm in size is present on axial image 66, unchanged from multiple previous stud ies. Remainder of the lungs are otherwise unremarkable. No pleural effusion. No pneumothorax. HILAR AND MEDIASTINAL STRUCTURES: No identified masses or abnormal nodes. Small hiatal hernia HEART AND VASCULAR STRUCTURES: No aneurysm or dissection. No central pulmonary emboli. No pericardi al effusion. HARDWARE: None. THYROID AND OTHER SOFT TISSUES: No masses. No adenopathy. BONES: Stable T7 metastatic lesion OTHER: No other significant finding. ABDOMEN AND PELVIS: LIVER: Normal size. No masses. No dilated ducts. SPLEEN: Normal size. No focal lesions. PANCREAS: No masses. No significant calcifications. No adjacent inflammation or peripancreatic fluid collections. Pancreatic duct not dilated. GALLBLADDER: No identified stones by CT criteria. No inflammatory changes to suggest cholecystitis. ADRENAL GLANDS: No significant masses or asymmetry. RIGHT KIDNEY AND URETER: No solid masses. 1.5 cm cyst right mid-pole kidney. No significant calcifi cation. No hydronephrosis or hydroureter. LEFT KIDNEY AND URETER: No solid masses. No significant calcification. No hydronephrosis or hydrouret er. AORTA AND VESSELS: No aneurysm. No dissection. Renal arteries, SMA, celiac without stenosis. RETROPERITONEUM: No retroperitoneal adenopathy, hemorrhage or masses. BOWEL AND PERITONEAL CAVITY: There is an umbilical hernia containing a loop of unobstructed small bow el, best shown on coronal images 7-11 and sagittal images 35-37. Surgical consultation is recommende d. Remainder of the gastrointestinal tract is otherwise unremarkable. No free intraperitoneal air or fl uid or CT signs of bowel obstruction or diverticulitis. APPENDIX: Normal. ABDOMINAL WALL: Umbilical hernia containing a loop of unobstructed small bowel PELVIS: No mass or free fluid. Normal bladder. BONES: Stable sclerotic bony metastatic lesions in the right and left pelvis OTHER: No other significant finding. IMPRESSION: Previously treated lesion in the superior segment left lower lobe with adjacent fiducial s, residual scar measures about 1 cm in size, stable over multiple previous exams. Umbilical hernia containing a nonobstructed loop of small bowel. Surgical consultation is recommende d. Stable sclerotic bony metastatic lesions in the thoracic spine and pelvis TECHNICAL DOCUMENTATION: JOB ID: [id number] Quality ID # 436: Final reports with documentation of one or more dose reduction techniques (e.g., Au tomated exposure control, adjustment of the mA and/or kV according to patient size, use of iterative reconstruction technique) 2010 [employer]- All Rights Reserved Reading location - IP/workstation name: [email or web address]
== END ==
LOC: RAD 08:48
PROVIDERS: ATTEND Internal Medicine
DX: C34.32 Malignant neoplasm of lower lobe, left bronchus or lung (principal); C79.51 Secondary malignant neoplasm of bone
CPT/HCPCS: 71260; 74177

== ENCOUNTER 2018-10-27 06:25 | Day surgery (SDC) | payer MEDICARE, OTHER ==
[~2018-10-27 06:25] MED LIST changes: +CEFAZOLIN 1 GM/D5W RTU 1 GM/50 ML RTUPB IV PRN; +DEXTROSE 5%-1/2 NORMAL SALINE 1,000 ML IV PRN; +DIAZEPAM 5 MG TABLET PO PRN; -LIDOCAINE 1% INJ-PF (10 MG/ML) 30 ML SDV ONE; +OXYCODONE-ACETAMINOPHEN 5-325 MG TABLET PO PRN
[2018-10-27 07:03] LABS: ABSOLUTE BASOPHILS # (AUTO) 0.1 10^3/uL (0.0-0.2); ABSOLUTE EOSINOPHILS # (AUTO) 0.3 10^3/uL (0.0-0.6); ABSOLUTE LYMPHOCYTES (AUTO) 1.4 10^3/uL (0.5-4.7); ABSOLUTE MONOCYTES (AUTO) 0.8 10^3/uL (0.1-1.4); ABSOLUTE NEUT (AUTO) 4.5 10^3/uL (1.7-8.2); BASOPHILS % (AUTO) 0.8 % (0-2); EOSINOPHILS % (AUTO) 4.4 % (0-6); HEMATOCRIT 32.9 % (37.9-51.0); HEMOGLOBIN 11.1 g/dL (13.5-17.0); LYMPHOCYTES % (AUTO) 19.5 % (13-45); MEAN CORPUSCULAR HEMOGLOBIN 29.8 pg (27.0-33.4); MEAN CORPUSCULAR HGB CONC 33.7 g/dL (32.0-36.0); MEAN CORPUSCULAR VOLUME 88 fl (80-97); PLATELET COUNT 466 10^3/uL (150-450); RED BLOOD COUNT 3.73 10^6/uL (4.35-5.55); RED CELL DISTRIBUTION WIDTH 19.4 % (11.5-14.0); SEGMENTED NEUTROPHILS % (AUTO) 63.3 % (42-78); TOTAL CELLS COUNTED % (AUTO) 100 %; WHITE BLOOD COUNT 7.1 10^3/uL (4.0-10.5)
[2018-10-27] MEDS ORDERED: CEFAZOLIN 1 GM/D5W RTU 1 GM/50 ML RTUPB IV ONE (07:19)
[2018-10-27 07:21] LABS: ANION GAP 12 (5-19); BLOOD UREA NITROGEN 23 mg/dL (7-20); CALCIUM 9.4 mg/dL (8.4-10.2); CARBON DIOXIDE 25 mmol/L (22-30); CHLORIDE 104 mmol/L (98-107); GLUCOSE 101 mg/dL (75-110); POTASSIUM 3.9 mmol/L (3.6-5.0)
[2018-10-27] MEDS ORDERED: BACITRACIN INJ 50,000 UNIT VIAL ONE (07:48)
[2018-10-27] MEDS ORDERED: LIDOCAINE 0.5% INJ-PF (5 MG/ML) 50 ML SDV ONE (07:48)
[2018-10-27] MEDS ORDERED: DIAZEPAM 5 MG TABLET ONE (07:50)
[2018-10-27] MEDS ORDERED: OXYCODONE-ACETAMINOPHEN 5-325 MG TABLET ONE (07:50)
[2018-10-27] MEDS ORDERED: FENTANYL CITRATE INJ/PF 100 MCG/2 ML AMPUL ONE (08:00)
[2018-10-27] MEDS ORDERED: MIDAZOLAM 2 MG/2 ML INJ ONE (08:00)
--- NOTE | 2018-10-27 08:46 | RADIOLOGY REPORT (SQ) ---
EXAM DESCRIPTION: CHEST SINGLE VIEW COMPLETED DATE/TIME: 10/27/2018 8:08 am REASON FOR STUDY: PREOP COMPARISON: CT chest dated 09/05/2018 NUMBER OF VIEWS: One view. TECHNIQUE: Single frontal radiographic view of the chest acquired. LIMITATIONS: None. FINDINGS: LUNGS AND PLEURA: Lung dodson are hyperexpanded. Minimal scarring in the left base. Clip s overlie the left hilar region. MEDIASTINUM AND HILAR STRUCTURES: No masses. Contour normal. HEART AND VASCULAR STRUCTURES: Heart normal in size. Normal vasculature. BONES: No acute findings. HARDWARE: None in the chest. OTHER: No other significant finding. IMPRESSION: Hyperexpansion. No other significant findings. TECHNICAL DOCUMENTATION: JOB ID: [id number] 2145 [employer]- All Rights Reserved Reading location - IP/workstation name: [email or web address]
--- NOTE | 2018-10-27 10:23 | Discharge Summary ---
Discharge Summary (SDC) - Discharge Final Diagnosis: Lung cancer. Date of Surgery: 10/27/18 Discharge Date: 10/27/18 Condition: Fair Treatment or Instructions: Discharge home [after recovery per ASU criteria]. Diet , as tolerated, when fully awake advance as tolerated. Activities within moderation encouraged. Follow up in my office by appointment in about [1 week]. Call for appointment. Leave wounds [covered], [keep clean and dry, until office visit in 1 week]. Hold of on school/work [until evaluation in office]. Meds per med rec. May shower [in 48 hrs], [try to keep operated area as dry as possible]. Referrals: FAHAD UMANA MD [Primary Care Provider] - Discharge Diet: As Tolerated Respiratory Treatments at Home: Deep Breathing/Coughing Discharge Activity: Activity As Tolerated Report the Following to Your Physician Immediately: Shortness of Breath, Unusual Bleeding
--- NOTE | 2018-10-27 10:26 | Operative Report ---
Operative Report DATE OF SURGERY: 10/27/18 PREOPERATIVE DIAGNOSIS: Lung cancer. POSTOPERATIVE DIAGNOSIS: Lung cancer. OPERATION: 1. Ultrasound evaluation of the right internal jugular vein. 2. Insertion of Port-A-Cath via real-time access in the right internal jugular vein. 3. Angiogram and interpretation. SURGEON: BRENDA MILLER WRECKING CRANE ENGINE OPERATOR: None. ANESTHESIA: Moderate Sedation TISSUE REMOVED OR ALTERED: Not applicable. COMPLICATIONS: None. ESTIMATED BLOOD LOSS: 5 mL. INTRAOPERATIVE FINDINGS: Of a satisfactory right internal jugular vein. Satisfactory and safe access. Position of the catheter with the tip down in the right atrium. Angiogram demonstrates smooth flow of contrast into the right atrium. The pulmonary outflow tract not seen. Easy egress of blood and ingress of heparinized solution. Postprocedure chest x-ray showed hardware is satisfactorily in place. PROCEDURE: After obtaining informed consent, the patient was taken to the [facility] and positioned supine. The [right] neck and chest were prepared with chlorhexidine and draped out with sterile linen. After the " universal timeout", in which it was verified that the patient continued to receive antibiotic, the procedure commenced. A steriley sheathed ultrasound probe was used to evaluate the [right] internal jugular vein. Local anesthesia was infiltrated adjacent to the probe. Access into the [right] internal jugular vein was obtained using a micropuncture needle, followed by micropuncture wire and then a micropuncture catheter. This was followed by introduction of a 0.035 guidewire the tip of which was placed down into the inferior vena cava . The port sites was marked , locally anesthetized and incision made. Dissection now proceeded to the deep subcutaneous subcutaneous tissues so that a pocket for the port was made. Meticulous hemostasis was secured and the catheter was tunneled between the 2 incisions. Proximally, the catheter was now positioned using a peel-away sheath. Distally the catheter was tailored to an appropriate length and then mated to the port using the contained fixating device. The port was now placed in the pocket and the catheter optimally positioned. The port was accessed with a Gonzalez needle and an angiogram done under digital subtraction. The findings as dictated. With adequate and satisfactory positioning, the lumen of the chamber were irrigated with heparinized solution. The wounds were now closed using inter rupted 3-0 PDS to the subcutaneous tissues and a continuous subcuticular suture of 4-0 Monocryl to the skin. These are reinforced with Steri-Strips over benzoin and then dressings applied. Time: 0.1 minute. Dose: 3.29 m Gy Contrast: 5 Mls. Isovue 300. Copies of the dictated operative report for Dr. Brenda Hernandez MD.
--- NOTE | 2018-10-27 10:33 | RADIOLOGY REPORT (SQ) ---
EXAM DESCRIPTION: PORTACATH INSERTION; GUIDANCE ULTRASOUND; GUIDANCE FLUOROSCOPIC COMPLETED DATE/TIME: 10/27/2018 9:37 am REASON FOR STUDY: C34.32 LOWER LOBE C34.32 MALIGNANT NEOPLASM OF LOWER LOBE, LEFT BRONCHUS OR SAURAV Z7 9.899 OTHER JAVA CONSULTANT (CURRENT) DRUG THERAPY COMPARISON: None. FLUOROSCOPY TIME: 0.1 minutes Spot images saved to PACS. TECHNIQUE: Intra-operative images acquired during surgical procedure to evaluate progress. NUMBER OF IMAGES: 7 LIMITATIONS: None. FINDINGS: Fluoroscopy was provided for intraoperative procedure. Please refer to the operative repo rt for further discussion. IMPRESSION: IMAGE(S) OBTAINED DURING PROCEDURE. COMMENT: Quality ID 145: Final reports for procedures using fluoroscopy that document radiation exp osure indices, or exposure time and number of fluorographic images (if radiation exposure indices are not available) Please consult full operative report of the attending physician for description of the procedure. TECHNICAL DOCUMENTATION: JOB ID: [id number] [employer]- All Rights Reserved Reading location - IP/workstation name: [email or web address]
--- NOTE | 2018-10-27 10:33 | RADIOLOGY REPORT (SQ) ---
EXAM DESCRIPTION: PORTACATH INSERTION; GUIDANCE ULTRASOUND; GUIDANCE FLUOROSCOPIC COMPLETED DATE/TIME: 10/27/2018 9:37 am REASON FOR STUDY: C34.32 LOWER LOBE C34.32 MALIGNANT NEOPLASM OF LOWER LOBE, LEFT BRONCHUS OR SAURAV Z7 9.899 OTHER NURSE (CURRENT) DRUG THERAPY COMPARISON: None. FLUOROSCOPY TIME: 0.1 minutes Spot images saved to PACS. TECHNIQUE: Intra-operative images acquired during surgical procedure to evaluate progress. NUMBER OF IMAGES: 7 LIMITATIONS: None. FINDINGS: Fluoroscopy was provided for intraoperative procedure. Please refer to the operative repo rt for further discussion. IMPRESSION: IMAGE(S) OBTAINED DURING PROCEDURE. COMMENT: Quality ID 145: Final reports for procedures using fluoroscopy that document radiation exp osure indices, or exposure time and number of fluorographic images (if radiation exposure indices are not available) Please consult full operative report of the attending physician for description of the procedure. TECHNICAL DOCUMENTATION: JOB ID: [id number] [employer]- All Rights Reserved Reading location - IP/workstation name: [email or web address]
--- NOTE | 2018-10-27 10:33 | RADIOLOGY REPORT (SQ) ---
EXAM DESCRIPTION: PORTACATH INSERTION; GUIDANCE ULTRASOUND; GUIDANCE FLUOROSCOPIC COMPLETED DATE/TIME: 10/27/2018 9:37 am REASON FOR STUDY: C34.32 LOWER LOBE C34.32 MALIGNANT NEOPLASM OF LOWER LOBE, LEFT BRONCHUS OR SAURAV Z7 9.899 OTHER ASSISTANT ATTORNEY GENERAL (CURRENT) DRUG THERAPY COMPARISON: None. FLUOROSCOPY TIME: 0.1 minutes Spot images saved to PACS. TECHNIQUE: Intra-operative images acquired during surgical procedure to evaluate progress. NUMBER OF IMAGES: 7 LIMITATIONS: None. FINDINGS: Fluoroscopy was provided for intraoperative procedure. Please refer to the operative repo rt for further discussion. IMPRESSION: IMAGE(S) OBTAINED DURING PROCEDURE. COMMENT: Quality ID 145: Final reports for procedures using fluoroscopy that document radiation exp osure indices, or exposure time and number of fluorographic images (if radiation exposure indices are not available) Please consult full operative report of the attending physician for description of the procedure. TECHNICAL DOCUMENTATION: JOB ID: [id number] [employer]- All Rights Reserved Reading location - IP/workstation name: [email or web address]
[2018-10-27 11:06] VITALS: BP 130/68
--- NOTE | 2018-10-27 14:44 | EKG REPORT ---
SEVERITY:- ABNORMAL ECG - SINUS RHYTHM NONSPECIFIC T ABNORMALITIES, ANTERIOR LEADS : Confirmed by: Sonam Mendez MD 27-Oct-2018 14:43:16
== END 2018-10-27 11:07 | disposition home or self-care (01) ==
LOC: CCL 06:25
PROVIDERS: ATTEND Surgery
DX: C34.32 Malignant neoplasm of lower lobe, left bronchus or lung (principal); J44.9 Chronic obstructive pulmonary disease, unspecified; E78.00 Pure hypercholesterolemia, unspecified; I10 Essential (primary) hypertension; Z87.891 Personal history of nicotine dependence; Z79.899 Other long term (current) drug therapy; Z79.01 Long term (current) use of anticoagulants; Z86.711 Personal history of pulmonary embolism
CPT/HCPCS: 36415; 85025; 80048; 36561; 76937; 77001; 71045; 93005; 93010; Q9967; J2250; J3490 ×2; J0690; A9270 ×2; J3010; J1644

== ENCOUNTER 2018-11-01 15:19 | Outpatient (CLI) | payer MEDICARE, OTHER ==
[2018-11-01] MEDS ORDERED: NORMAL SALINE 250 ML IV PRN (15:48)
[2018-11-01 15:54] VITALS: BP 126/72
[2018-11-01] MEDS ORDERED: CEFTRIAXONE 2 GM/D5W RTU 2 GM/50 ML RTUPB IV PRN (16:00)
== END 2018-11-01 16:37 | disposition home or self-care (01) ==
LOC: ER 15:19 → 2N 15:26 → ER 16:37
PROVIDERS: ATTEND Internal Medicine
PROC: 3E043GC Introduction of Other Therapeutic Substance into Central Vein, Percutaneous Approach (ICD-10-PCS; principal; 2018-11-01)
DX: M86.8X8 Other osteomyelitis, other site (principal); M87.9 Osteonecrosis, unspecified
CPT/HCPCS: J1642; J0696; 96365

== ENCOUNTER 2018-11-02 12:50 | Outpatient (CLI) | payer MEDICARE, OTHER ==
[~2018-11-02 12:50] MED LIST changes: -CEFAZOLIN 1 GM/D5W RTU 1 GM/50 ML RTUPB IV PRN; +CEFTRIAXONE 2 GM/D5W RTU 2 GM/50 ML RTUPB IV PRN; -DEXTROSE 5%-1/2 NORMAL SALINE 1,000 ML IV PRN; -DIAZEPAM 5 MG TABLET PO PRN; +NORMAL SALINE 250 ML IV PRN; -OXYCODONE-ACETAMINOPHEN 5-325 MG TABLET PO PRN
== END 2018-11-02 14:22 | disposition home or self-care (01) ==
LOC: II 12:50 → 2N 12:57 → II 14:22
PROVIDERS: ATTEND Internal Medicine
DX: M86.8X8 Other osteomyelitis, other site (principal)
CPT/HCPCS: 96365; J1642; J0696

== ENCOUNTER 2018-11-08 09:51 | Outpatient (CLI) | payer MEDICARE, OTHER ==
[2018-11-08] MEDS ORDERED: CEFTRIAXONE 1 GM/D5W RTU 0 GM/0 ML RTUPB IV ONE (10:50)
[2018-11-08] MEDS ORDERED: CEFTRIAXONE 2 GM/D5W RTU 2 GM/50 ML RTUPB IV ONE (10:52)
[2018-11-08] MEDS ORDERED: NORMAL SALINE 250 ML IV PRN (11:30)
[2018-11-08] MEDS ORDERED: CEFTRIAXONE 2 GM/D5W RTU 2 GM/50 ML RTUPB IV SCH ×2 (11:30→12:00)
== END 2018-11-08 11:52 | disposition home or self-care (01) ==
LOC: II 09:51 → 2S 09:51 → II 11:52
PROVIDERS: ATTEND Internal Medicine
DX: M86.8X8 Other osteomyelitis, other site (principal)
CPT/HCPCS: J1642; J0696; 96365

== ENCOUNTER 2018-11-09 13:02 | Outpatient (CLI) | payer MEDICARE, OTHER ==
[2018-11-09] MEDS ORDERED: NORMAL SALINE 250 ML IV PRN (13:21)
[2018-11-09] MEDS ORDERED: CEFTRIAXONE 2 GM/D5W RTU 2 GM/50 ML RTUPB IV PRN (13:21)
== END 2018-11-09 15:02 | disposition home or self-care (01) ==
LOC: II 13:02 → 2S 13:09 → II 15:02
PROVIDERS: ATTEND Internal Medicine
DX: M86.8X8 Other osteomyelitis, other site (principal)
CPT/HCPCS: J1642; J0696; 96365

== ENCOUNTER 2018-11-15 11:27 | Outpatient (CLI) | payer MEDICARE, OTHER ==
[2018-11-15] MEDS ORDERED: NORMAL SALINE 250 ML IV PRN (11:32)
[2018-11-15 11:53] VITALS: BP 126/64
[2018-11-15] MEDS ORDERED: CEFTRIAXONE 2 GM/D5W RTU 2 GM/50 ML RTUPB IV ONE (12:00)
[2018-11-15] MEDS ORDERED: CEFTRIAXONE 1 GM/D5W RTU 1 GM/50 ML RTUPB IV ONE (12:00)
== END 2018-11-15 13:20 | disposition home or self-care (01) ==
LOC: II 11:27 → 2N 11:31 → II 13:20
PROVIDERS: ATTEND Internal Medicine
DX: M86.8X8 Other osteomyelitis, other site (principal)
CPT/HCPCS: 96365; J7050; J1642; J0696

== ENCOUNTER 2018-11-16 10:57 | Outpatient (CLI) | payer MEDICARE, OTHER ==
[2018-11-16] MEDS ORDERED: NORMAL SALINE 250 ML IV PRN (11:28)
[2018-11-16 11:29] VITALS: BP 125/68
[2018-11-16] MEDS ORDERED: CEFTRIAXONE 2 GM/D5W RTU 2 GM/50 ML RTUPB IV ONE (12:00)
[2018-11-16] MEDS ORDERED: CEFTRIAXONE 1 GM/D5W RTU 1 GM/50 ML RTUPB IV ONE (12:30)
== END 2018-11-16 12:45 | disposition home or self-care (01) ==
LOC: II 10:57 → 2N 10:57 → II 12:45
PROVIDERS: ATTEND Internal Medicine
DX: M86.8X8 Other osteomyelitis, other site (principal)
CPT/HCPCS: 96365; J1642; J0696

== ENCOUNTER 2018-11-22 11:45 | Outpatient (CLI) | payer MEDICARE ==
[2018-11-22 11:57] VITALS: BP 124/69
[2018-11-22] MEDS ORDERED: CEFTRIAXONE 2 GM/D5W RTU 2 GM/50 ML RTUPB IV ONE (12:30)
[2018-11-22] MEDS ORDERED: NORMAL SALINE 250 ML IV PRN (13:00)
== END 2018-11-22 13:23 | disposition home or self-care (01) ==
LOC: II 11:45 → 2N 11:45 → II 13:23
PROVIDERS: ATTEND Internal Medicine
DX: M86.8X8 Other osteomyelitis, other site (principal)
CPT/HCPCS: 96365; J0696

== ENCOUNTER 2018-11-23 10:54 | Outpatient (CLI) | payer MEDICARE ==
[2018-11-23 11:24] VITALS: BP 140/66
[2018-11-23] MEDS ORDERED: CEFTRIAXONE 2 GM/D5W RTU 2 GM/50 ML RTUPB IV ONE (12:00)
[2018-11-23] MEDS ORDERED: NORMAL SALINE 250 ML IV PRN (12:00)
== END 2018-11-23 12:35 | disposition home or self-care (01) ==
LOC: II 10:54 → 2N 10:57 → II 12:35
PROVIDERS: ATTEND Internal Medicine
DX: M86.8X8 Other osteomyelitis, other site (principal)
CPT/HCPCS: 96365; J7050; J1642; J0696

== ENCOUNTER → 2018-12-04 | Outpatient (CLI) | payer MEDICARE, OTHER ==
--- NOTE | 2018-12-04 12:57 | RADIOLOGY REPORT (SQ) ---
EXAM DESCRIPTION: CT CHEST WITH COMPLETED DATE/TIME: 12/04/2018 9:33 am REASON FOR STUDY: LUNG CA (C34.32) C34.32 MALIGNANT NEOPLASM OF LOWER LOBE, LEFT BRONCHUS OR SAURAV COMPARISON: 09/05/2018, 05/21/2018, and 02/19/2018. TECHNIQUE: CT scan of the chest performed using helical scanning technique with dynamic intravenous contrast injection. Images reviewed with lung, soft tissue and bone windows. Reconstructed coronal and sagittal MPR and MIP images reviewed. All images stored on PACS. All CT scanners at this facility use dose modulation, iterative reconstruction, and/or weight based d osing when appropriate to reduce radiation dose to as low as reasonably achievable (ALARA). [facility]: Dose Right [facility]: CareDose [facility]: Dose Right [facility]: Teradose 4D [facility]: [employer] CONTRAST TYPE AND DOSE: 90 mL Omnipaque 350- low osmolar. RENAL FUNCTION: Creatinine 1.0. RADIATION DOSE: CT Rad equipment meets quality standard of care and radiation dose reduction techniq ues were employed. CTDIvol: 6.2 - 7.3 mGy. DLP: 1317 mGy-cm. . LIMITATIONS: None. FINDINGS: LUNGS AND PLEURA: Mild emphysematous changes. Treated lesion in the superior segment of t he left lower lobe with metallic clips in this region. This lesion is slightly larger on the current study, measuring 1.1 x 1.5 cm with prior measurement 0.9 x 1.2 cm. No new lesions. No pleural effu sions or pleural thickening. HILAR AND MEDIASTINAL STRUCTURES: No identified masses or abnormal nodes. HEART AND VASCULAR STRUCTURES: No aneurysm or dissection. No central pulmonary emboli. No pericardi al effusion. HARDWARE: Vascular port. UPPER ABDOMEN: No significant findings. Limited exam. THYROID AND OTHER SOFT TISSUES: No masses. No adenopathy. BONES: Stable sclerotic lesion in the body of T7. OTHER: No other significant finding. IMPRESSION: 1. THE TREATED LESION IN THE SUPERIOR SEGMENT OF THE LEFT LOWER LOBE IS SLIGHTLY LARGER. DEPENDING O N THE DEGREE OF CLINICAL SUSPICION, THIS MAY BE FOLLOWED WITH PET SCAN VERSUS SURVEILLANCE CT IN 3 MO NTHS. 2. STABLE SCLEROTIC LESION IN THE BODY OF T7. NO OTHER SIGNIFICANT FINDINGS IN THE CHEST. TECHNICAL DOCUMENTATION: JOB ID: [id number] Quality ID # 436: Final reports with documentation of one or more dose reduction techniques (e.g., Au tomated exposure control, adjustment of the mA and/or kV according to patient size, use of iterative reconstruction technique) 2010 [employer]- All Rights Reserved Reading location - IP/workstation name: [email or web address]
--- NOTE | 2018-12-04 13:04 | RADIOLOGY REPORT (SQ) ---
EXAM DESCRIPTION: CT ABD/PELVIS WITH IV ONLY COMPLETED DATE/TIME: 12/04/2018 9:33 am REASON FOR STUDY: LUNG CA (C34.32) C34.32 MALIGNANT NEOPLASM OF LOWER LOBE, LEFT BRONCHUS OR SAURAV COMPARISON: 09/05/2018, 05/21/2018, and 02/19/2018. TECHNIQUE: CT scan of the abdomen and pelvis performed using helical scanning technique with dynamic intravenous contrast injection. No oral contrast. Images reviewed with lung, soft tissue, and bone windows. Reconstructed coronal and sagittal MPR images reviewed. Delayed images for evaluation of the urinary system also acquired. All images stored on PACS. All CT scanners at this facility use dose modulation, iterative reconstruction, and/or weight based d osing when appropriate to reduce radiation dose to as low as reasonably achievable (ALARA). [facility]: Dose Right [facility]: CareDose [facility]: Dose Right [facility]: Teradose 4D [facility]: [employer] CONTRAST TYPE AND DOSE: contrast/concentration: Isovue 350.00 mg/ml; Total Contrast Delivered: 90.0 ml; Total Saline Delivered: 70.0 ml RENAL FUNCTION: Creatinine 1.0. RADIATION DOSE: . LIMITATIONS: None. FINDINGS: LOWER CHEST: No significant findings. No nodules or infiltrates. LIVER: Normal size. Mild fatty infiltration. No masses. No dilated ducts. SPLEEN: Normal size. No focal lesions. PANCREAS: No masses. No significant calcifications. No adjacent inflammation or peripancreatic fluid collections. Pancreatic duct not dilated. GALLBLADDER: No identified stones by CT criteria. No inflammatory changes to suggest cholecystitis. ADRENAL GLANDS: No significant masses or asymmetry. RIGHT KIDNEY AND URETER: Cortical cyst. No solid masses. No significant calcifications. No hydro nephrosis or hydroureter. LEFT KIDNEY AND URETER: No solid masses. No significant calcifications. No hydronephrosis or hydr oureter. AORTA AND VESSELS: No aneurysm. No dissection. Renal arteries, SMA, celiac without stenosis. RETROPERITONEUM: No retroperitoneal adenopathy, hemorrhage or masses. BOWEL AND PERITONEAL CAVITY: No masses or inflammatory changes. No free fluid or peritoneal masses. APPENDIX: Normal. PELVIS: No mass. No free fluid. Normal bladder. ABDOMINAL WALL: No masses. No hernias. BONES: Stable mixed sclerotic lesions in the pelvis and sacrum. OTHER: No other significant finding. IMPRESSION: STABLE CT OF THE ABDOMEN AND PELVIS. STABLE MIXED SCLEROTIC LESIONS IN THE PELVIS AND S ACRUM. INCIDENTAL CORTICAL CYST IN THE RIGHT KIDNEY. NO OTHER SIGNIFICANT FINDINGS. TECHNICAL DOCUMENTATION: JOB ID: [id number] Quality ID # [id number]: Final reports with documentation of one or more dose reduction techniques (e.g., Au tomated exposure control, adjustment of the mA and/or kV according to patient size, use of iterative reconstruction technique) 2010 [employer]- All Rights Reserved Reading location - IP/workstation name: [email or web address]
== END ==
LOC: RAD 08:44
PROVIDERS: ATTEND Physician Assistant Medical
DX: C34.32 Malignant neoplasm of lower lobe, left bronchus or lung (principal)
CPT/HCPCS: 71260; 74177; 82565

== ENCOUNTER → 2018-12-28 | Outpatient (CLI) | payer MEDICARE, OTHER ==
--- NOTE | 2018-12-29 08:50 | RADIOLOGY REPORT (SQ) ---
EXAM DESCRIPTION: PET CT SKULL/THIGH COMPLETED DATE/TIME: 12/28/2018 8:46 pm REASON FOR STUDY: (C34.32)MALIGNANT NEOPLASM OF LOWER LOBE, LEFT BRONCHUS OR LUNG C34.32 MALIGNANT NEOPLASM OF LOWER LOBE, LEFT BRONCHUS OR SAURAV COMPARISON: PET scan dated 01/08/2017. CT scans dated 12/04/2018 and 09/05/2018. RADIONUCLIDE AND DOSE: 10 mCi F18 FDG The route of agent administration: Intravenous FASTING BLOOD SUGAR: 76 mg/dl CONTRAST TYPE AND DOSE: No CT contrast given. TECHNIQUE: Blood glucose level was verified. Above dose of FDG was injected intravenously. 2-D seg mented attenuation correction images were obtained from the base of the skull to the midthighs. Nonc ontrast CT images were obtained for attenuation correction and fusion with emission images. CT image s were performed without oral or intravenous contrast and are not sensitive for parenchymal lesions. A series of overlapping emission PET images were obtained. [facility] by the radiologist. Images stored on PACS. LIMITATIONS: None. FINDINGS: HEAD AND NECK: No areas of abnormal metabolic activity in the soft tissues of the head and neck. CHEST: The treated lesion in the left lung with adjacent metallic markers appears unchanged on CT com pared to the most recent chest CT. Mean SUV 3.66. No other areas of abnormal metabolic activity in the chest. ABDOMEN AND PELVIS: No areas of abnormal metabolic activity in the abdomen or pelvis. Expected physi ologic activity is present in the genitourinary system and bowel. PROXIMAL LOWER EXTREMITIES: No areas of abnormal metabolic activity in the soft tissues of the lower extremities. BONES: There are numerous areas of abnormal activity in the skeleton. Most impressive is extensive a ctivity in the sacrum and pelvis with numerous areas of markedly increased activity. SUV values rang e from 6 to 16. Prominent activity in the region of the right hip and acetabulum. A few areas of ac tivity in the pelvis have associated CT findings with mixed sclerotic lesions although other areas of activity have no corresponding bony findings on CT. There is a mixed sclerotic lesion in the body o f T7 with mean SUV 2.99. There is a focal area of minimal increased activity in the left 4th rib (ax ial series 3, image 66). Minimal sclerosis on CT. Mean SUV 1.92. There is a defect on the left amrit e of the mandible with mean SUV 4.33. ADDITIONAL CT FINDINGS: Incidental cyst in the right kidney. No additional significant findings on t he noncontrast CT images. OTHER: Background blood pool activity mean SUV 1.65. Background liver activity mean SUV 2.14. No ot her significant findings. IMPRESSION: 1. TREATED LESION IN THE LEFT LUNG WHICH HAS INCREASED IN SIZE ON RECENT CT SCANS. MEAN SUV 3.66, CO NCERNING FOR ACTIVE DISEASE. 2. NUMEROUS AREAS OF MARKEDLY INCREASED ACTIVITY IN THE SACRUM AND PELVIS, PARTICULARLY IN THE REGION OF THE RIGHT HIP. SOME OF THESE AREAS ARE ASSOCIATED WITH CT FINDINGS AND OTHER AREAS DEMONSTRATE N O BONY FINDINGS ON CT. 3. THERE IS A MIXED SCLEROTIC LESION IN THE BODY OF T7 WITH MEAN SUV 2.99 AND A FAINT AREA OF SCLEROS IS IN THE LEFT 4TH RIB WITH MEAN SUV 1.92. 4. DEFECT IN THE LEFT SIDE OF THE MANDIBLE WITH INCREASED ACTIVITY. HISTORY OF RECENT SURGERY. TECHNICAL DOCUMENTATION: JOB ID: [id number] [employer]- All Rights Reserved Reading location - IP/workstation name: [email or web address]
== END ==
LOC: RAD 15:14
PROVIDERS: ATTEND Internal Medicine
DX: C34.32 Malignant neoplasm of lower lobe, left bronchus or lung (principal)
CPT/HCPCS: 78815; A9552

== ENCOUNTER → 2019-01-05 | Outpatient (CLI) | payer MEDICARE, OTHER ==
--- NOTE | 2019-01-05 11:05 | RADIOLOGY REPORT (SQ) ---
EXAM DESCRIPTION: CHEST 2 VIEWS COMPLETED DATE/TIME: 01/05/2019 9:58 am REASON FOR STUDY: R07.9 CHEST PAIN, UNSPECIFIED COMPARISON: 10/27/2018 EXAM PARAMETERS: NUMBER OF VIEWS: two views TECHNIQUE: Digital Frontal and Lateral radiographic views of the chest acquired. RADIATION DOSE: NA LIMITATIONS: none FINDINGS: LUNGS AND PLEURA: No infiltrate. No pleural effusion. There is about a 12 mm nodule in t he left mid lung. MEDIASTINUM AND HILAR STRUCTURES: No masses or contour abnormalities. HEART AND VASCULAR STRUCTURES: Heart normal size. No evidence for failure. BONES: No acute findings. HARDWARE: Injection port on the right. Surgical clips. OTHER: No other significant finding. IMPRESSION: There appears to be about a 12 mm pulmonary nodule in the left mid lung. This appears t o overlie the spine on the lateral view. TECHNICAL DOCUMENTATION: JOB ID: [id number] [employer]- All Rights Reserved Reading location - IP/workstation name: [email or web address]
== END ==
LOC: RAD 09:41
PROVIDERS: ATTEND Internal Medicine
DX: R07.9 Chest pain, unspecified (principal)
CPT/HCPCS: 71046

== ENCOUNTER 2019-02-23 13:15 | Inpatient (IN) | payer MEDICARE, OTHER ==
--- NOTE | 2019-02-23 13:41 | ER Document Report ---
ED General - General Chief Complaint: Breathing Difficulty Stated Complaint: DIFFICULTY BREATHING Time Seen by Provider: 02/23/19 13:29 Primary Care Provider: FAHAD AL MD [Primary Care Provider] - Follow up as needed TRAVEL OUTSIDE OF THE [place] IN LAST 30 DAYS: Yes - [place],[facility],[place],[facility] Notes: Patient is a 68-year-old male with a history of hypertension, stage IV lung cancer and on (Opdivo-2nd infusion today), previous PE and on Xarelto presents from oncology after having wheezing, shortness of breath, and being unresponsive for 5 to 10 minutes. He was given Xopenex, Benadryl, and dexamethasone. Patient states that he does not remember becoming incoherent. He was sitting there talking when the woman with him noticed his left arm going limp and some difference in his breathing. She noted that he was not responding to her. This occurred about 15 minutes into the second infusion. Patient states that he has not been feeling any chest pain or shortness of breath otherwise. He had been feeling well and have been eating and drinking prior. Denies any headache, fever, head injury, neck pain, changes in vision/speech/mentation/hearing, URI, sore throat, chest pain, palpitations, cough, abdominal pain, nausea/vomiting/di arrhea, urinary retention, dysuria, hematuria, loss of control of bowel or bladder, numbness/tingling, saddle anesthesia, muscle paralysis/weakness, or rash. - Related Data Allergies/Adverse Reactions: No Known Allergies Allergy (Unverified 08/19/14 15:24) Past Medical History - Social History Smoking Status: Unknown if Ever Smoked Family History: Reviewed & Not Pertinent - Past Medical History Cardiac Medical History: Reports: Hx Hypercholesterolemia, Hx Hypertension Denies: Hx Coronary Artery Disease, Hx Heart Attack Pulmonary Medical History: Reports: Hx COPD Denies: Hx Asthma, Hx Bronchitis, Hx Pneumonia Neurological Medical History: Reports: Hx Cerebrovascular Accident - 1982. Denies: Hx Seizures Musculoskeletal Medical History: Reports Hx Arthritis Past Surgical History: Reports: Hx Orthopedic Surgery - LEFT KNEE - Immunizations Hx Diphtheria, Pertussis, Tetanus Vaccination: No Review of Systems - Review of Systems -: Yes All other systems reviewed and negative Physical Exam - Vital signs Vitals: Resp Pulse Ox 16 98 02/23/19 13:38 02/23/19 13:38 - Notes Notes: PHYSICAL EXAMINATION: GENERAL: Well-appearing, well-nourished and in no acute distress. A&Ox4. Answers questions appropriately. HEAD: Atraumatic, normocephalic. Non-tender. EYES: Pupils equal round and reactive to light, extraocular movements intact, sclera anicteric, conjunctiva are normal. No nystagmus. vis dodson intact. ENT: Nares patent and without discharge. oropharynx clear without exudates. No tonsilar hypertrophy or erythema. Moist mucous membranes. NECK: Normal range of motion, supple without lymphadenopathy. No rigidity/meningismus. No midline tenderness. LUNGS: Breath sounds clear to auscultation bilaterally and equal. No wheezes rales or rhonchi. No retractions. HEART: Regular rate and rhythm ABDOMEN: Soft, nontender, nondistended abdomen. No guarding, no rebound. Normal bowel sounds present. No CVA tenderness bilaterally. Musculoskeletal: Ext b/l: FROM to passive/active. Strength 5+/5. No deficits noted. No bony tenderness of extremities. Extremities: No cyanosis, clubbing, or edema b/l. Peripheral pulses 2+. Capillary refill less than 2 seconds. NEUROLOGICAL: NIH 0. GCS 15. Cranial nerves grossly intact. Normal speech. Normal sensory, motor exams. Reflexes 2+ b/l. ANNA's negative. Pronator drift negative. Heel/brock, finger/nose wnl. PSYCH: Normal mood, normal affect. SKIN: Warm, Dry, normal turgor, no rashes or lesions noted. Course - Re-evaluation Re-evalutation: 02/23/19 13:45 Patient is an afebrile, well-hydrated, 68-year-old male who presents with having some type of unresponsive episode with initial respiratory distress upon receiving the second infusion of his cancer medication. Vitals are currently acceptable. There are no focal neurological deficits at this time. NIH 0, GCS 15, cranial nerves grossly intact. Lungs sound clear to auscultation bilaterally minus a very subtle wheeze anteriorly. We will perform a cardiac work-up including CT scan of the head. I was able to speak with Dr. Medina. He does confirm the history and adds that he sounded stridorous with difficulty getting the air in/dyspnea so they added 0.5 of epi and about 5minutes later was breathing well again. He is not sure if it was vasovagal, but pt did have a syncopal episode and states that his staff told him he may have appeared as if he was having a seizure briefly (no history prior of seizures). 02/23/19 16:07 Labs and imaging unremarkable at this time. Patient is currently asymptomatic and is feeling well. Vitals remain acceptable. There is been no deterioration throughout his stay. Call placed to speak with Dr. Al regarding observation. 02/23/19 16:13 I was able to speak with Dr. Al who agrees with accepting patient to the [facility]. - Vital Signs Vital signs: Temp Pulse Resp BP Pulse Ox 98.8 F 14 132/68 H 100 02/23/19 16:06 02/23/19 15:01 02/23/19 15:00 02/23/19 15:01 - Laboratory Result Diagrams: 02/23/19 14:25 02/23/19 14:25 Laboratory results interpreted by me: 02/23/19 02/23/19 02/23/19 14:25 14:25 14:25 RBC 3.56 L Hgb 9.6 L Hct 29.1 L RDW 19.7 H Seg Neuts % (Manual) 93 H Band Neutrophils % 1 L Lymphocytes % (Manual) 2 L Abs Neuts (Manual) 9.1 H Abs Lymphs (Manual) 0.2 L PT 33.0 H APTT 42.9 H Chloride 108 H BUN 26 H Est GFR (MDRD) Non-Af 59 L Glucose 122 H Albumin 3.4 L Discharge - Discharge Clinical Impression: Episode of syncope Qualifiers: Syncope type: unspecified Qualified Code(s): R55 - Syncope and collapse Condition: Stable Disposition: ADMITTED INPATIENT Admitting Provider: Servando Unit Admitted: [facility] Referrals: FAHAD AL MD [Primary Care Provider] - Follow up as needed
[2019-02-23] MEDS ORDERED: NORMAL SALINE 1000 ML 1,000 ML IV ONE (13:44)
[2019-02-23 14:38] LABS: VENOUS BLOOD BASE EXCESS -3.1 mmol/L; VENOUS BLOOD HCO3 21.7 mmol/L (20-32); VENOUS BLOOD PCO2 37.7 mmHg (35-63); VENOUS BLOOD PH 7.38 (7.30-7.42)
[2019-02-23 14:39] LABS: HEMATOCRIT 29.1 % (37.9-51.0); HEMOGLOBIN 9.6 g/dL (13.5-17.0); MEAN CORPUSCULAR VOLUME 82 fl (80-97); PLATELET COUNT 276 10^3/uL (150-450); RED BLOOD COUNT 3.56 10^6/uL (4.35-5.55); RED CELL DISTRIBUTION WIDTH 19.7 % (11.5-14.0); WHITE BLOOD COUNT 9.7 10^3/uL (4.0-10.5)
[2019-02-23 14:45] LABS: INTERNATIONAL RATION (INR) 3.14
[2019-02-23 14:46] LABS: PARTIAL THROMBOPLASTIN TIME 42.9 SEC (23.5-35.8)
[2019-02-23 15:00] LABS: BLOOD UREA NITROGEN 26 mg/dL (7-20); CALCIUM 9.1 mg/dL (8.4-10.2); CARBON DIOXIDE 23 mmol/L (22-30); GLUCOSE 122 mg/dL (75-110); POTASSIUM 4.5 mmol/L (3.6-5.0)
[2019-02-23 15:01] LABS: ALBUMIN 3.4 g/dL (3.5-5.0); ALKALINE PHOSPHATASE 70 U/L (38-126); ASPARTATE AMINO TRANSFERASE 18 U/L (17-59); BILIRUBIN,DIRECT 0.2 mg/dL (0.0-0.4); BILIRUBIN,TOTAL 0.4 mg/dL (0.2-1.3); TOTAL PROTEIN 6.8 g/dL (6.3-8.2)
[2019-02-23 15:05] LABS: ABSOLUTE LYMPHOCYTES# (MANUAL) 0.2 10^3/uL (0.5-4.7); ABSOLUTE MONOCYTES # (MANUAL) 0.4 10^3/uL (0.1-1.4); BAND NEUTROPHILS % (MANUAL) 1 % (3-5); BASOPHILS % (MANUAL) 0 % (0-2); EOSINOPHILS % (MANUAL) 0 % (0-6); LYMPHOCYTES % (MANUAL) 2 % (13-45); MONOCYTES % (MANUAL) 4 % (3-13); SEGMENTED NEUTROPHILS % (MAN) 93 % (42-78); TOTAL CELLS COUNTED 100
[2019-02-23 15:06] LABS: ANISOCYTOSIS 2+; OVALOCYTES 1+; PLATELET COMMENT ADEQUATE; POIKILOCYTOSIS 1+; TOXIC GRANULATION 1+
[2019-02-23 15:11] LABS: ANION GAP 8 (5-19); CHLORIDE 108 mmol/L (98-107)
--- NOTE | 2019-02-23 15:23 | RADIOLOGY REPORT (SQ) ---
EXAM DESCRIPTION: CT HEAD WITHOUT COMPLETED DATE/TIME: 02/23/2019 3:12 pm REASON FOR STUDY: syncopal episode COMPARISON: 04/26/2017 TECHNIQUE: Axial images acquired through the brain without intravenous contrast. Images reviewed wi th bone, brain and subdural windows. Additional sagittal and coronal reconstructions were generated. Images stored on PACS. All CT scanners at this facility use dose modulation, iterative reconstruction, and/or weight based d osing when appropriate to reduce radiation dose to as low as reasonably achievable (ALARA). [facility]: Dose Right [facility]: CareDose [facility]: Dose Right [facility]: Teradose 4D [facility]: Smart DCWafers RADIATION DOSE: CT Rad equipment meets quality standard of care and radiation dose reduction techniq ues were employed. CTDIvol: 53.2 mGy. DLP: 1097 mGy-cm. mGy. LIMITATIONS: None. FINDINGS: VENTRICLES: Normal size and contour. CEREBRUM: No masses. No hemorrhage. No midline shift. 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 No evidence for acute infarction. Areas of low density in the white matte r most likely chronic small vessel ischemic changes. CEREBELLUM: No masses. No hemorrhage. No alteration of density. No evidence for acute infarction. EXTRAAXIAL SPACES: No fluid collections. No masses. ORBITS AND GLOBE: No intra- or extraconal masses. Normal contour of globe without masses. CALVARIUM: No fracture. PARANASAL SINUSES: No fluid or mucosal thickening. SOFT TISSUES: No mass or hematoma. OTHER: No other significant finding. IMPRESSION: CHRONIC MICROVASCULAR ISCHEMIA. NO ACUTE IMAGING FINDINGS IN THE BRAIN. EVIDENCE OF ACUTE STROKE: NO. COMMENT: Quality ID # [id number]: Final reports with documentation of one or more dose reduction techniques (e.g., Automated exposure control, adjustment of the mA and/or kV according to patient size, use of iterative reconstruction technique) TECHNICAL DOCUMENTATION: JOB ID: [id number] [employer]- All Rights Reserved Reading location - IP/workstation name: [email or web address]
--- NOTE | 2019-02-23 15:32 | RADIOLOGY REPORT (SQ) ---
EXAM DESCRIPTION: CHEST SINGLE VIEW COMPLETED DATE/TIME: 02/23/2019 3:22 pm REASON FOR STUDY: wheeze COMPARISON: 01/05/2019 EXAM PARAMETERS: NUMBER OF VIEWS: One view. TECHNIQUE: Single frontal radiographic view of the chest acquired. RADIATION DOSE: NA LIMITATIONS: None. FINDINGS: LUNGS AND PLEURA: Hyperexpansion of the lungs. No infiltrate or effusion. No mass. MEDIASTINUM AND HILAR STRUCTURES: No masses. Contour normal. HEART AND VASCULAR STRUCTURES: Heart normal in size. Normal vasculature. BONES: No acute findings. HARDWARE: Injection port on the right. Surgical clips on the left. OTHER: No other significant finding. IMPRESSION: Chronic lung changes with no acute cardiopulmonary finding. TECHNICAL DOCUMENTATION: JOB ID: [id number] [employer]- All Rights Reserved Reading location - IP/workstation name: [email or web address]
[2019-02-23] MEDS ORDERED: ACETAMINOPHEN 325 MG TABLET PO PRN (16:12)
[2019-02-23] MEDS ORDERED: ONDANSETRON HCL INJ/PF 4 MG/2 ML SDV IV PRN (16:12)
[2019-02-23] MEDS ORDERED: NORMAL SALINE 1000 ML 1,000 ML IV PRN (16:12)
[2019-02-23] MEDS ORDERED: DIPHENHYDRAMINE HCL 25 MG CAPSULE PO PRN (16:45)
[2019-02-23] MEDS ORDERED: OXYCODONE HCL IR 5 MG TABLET PO PRN (17:10)
--- NOTE | 2019-02-23 17:13 | PDOC H&P ---
History of Present Illness Admission Date/PCP: 02/23/19 16:22 FAHAD UMANA MD Patient complains of: Difficulty breathing syncopal episode History of Present Illness: NELDA MORENO is a 68 year old male This is a 68-year-old male with a history of the lung cancer with metastatic disease history of the COPD hypertension's hyperlipidemia history of the pulmon sveta embolisms basically went to the oncology office today for the Optidiva infusions Patient is got the 1 infusions last times couple of weeks back this is patient's second infusions and after starting the infusions for 5 minutes patient start have anaphylactic reactions Steidel difficulty in breathing and oncology office provide the 10 mg Decadron in appendectomy and supportive treatment and call the EMS and brought to the emergency departments In the emergency department patient initial work-up with the blood work is all stable patient EKG stable cardiac enzyme is indeterminant and patient basically back to the normal initial CT head was also negative When I saw the patient is feeling better no chest pain no short of breath Patient at this point order the MRI of the head According to the oncology no seizures like activities there is no seizures noticed in the emergency department to Past Medical History Cardiac Medical History: Reports: Hyperlipidema, Hypertension Denies: Coronary Artery Disease, Myocardial Infarction Pulmonary Medical History: Reports: Chronic Obstructive Pulmonary Disease (COPD) Denies: Asthma, Bronchitis, Pneumonia Neurological Medical History: Denies: Seizures Musculoskeltal Medical History: Reports: Arthritis Hematology: Denies: Anemia Past Surgical History Past Surgical History: Reports: Orthopedic Surgery - LEFT KNEE Social History Information Source: Patient Smoking Status: Unknown if Ever Smoked Electronic Cigarette use?: No Frequency of Alcohol Use: None Hx Recreational Drug Use: No Hx Prescription Drug Abuse: No Family History Family History: Reviewed & Not Pertinent Parental Family History Reviewed: Yes Children Family History Reviewed: Yes Sibling(s) Family History Reviewed.: Yes Medication/Allergy Home Medications: Albuterol Sulfate [Proair Hfa Inhalation Aerosol 8.5 gm Mdi] 2 puff IH Q6HP PRN 02/23/19 Albuterol Sulfate [Ventolin 0.083% Neb 2.5 mg/3 ml Ampul] 1 vial NEB RTQ8 02/23/19 Allopurinol [Zyloprim 100 mg Tablet] 100 mg PO DAILY 02/23/19 Atenolol [Tenormin] 25 mg PO DAILY 02/23/19 Atorvastatin Calcium [Lipitor 40 mg Tablet] 40 mg PO QHS 02/23/19 Calcium Carbonate [Calcium] 600 mg PO DAILY 02/23/19 Fenofibrate Nanocrystallized [Tricor 145 mg Tablet] 145 mg PO QHS 02/23/19 Folic Acid [Folvite 1 mg Tablet] 1 mg PO DAILY 02/23/19 Gabapentin [Neurontin 300 mg Capsule] 300 mg PO Q8 02/23/19 Oxycodone HCl [Oxy-Ir 5 mg Tablet] 15 mg PO Q6HP PRN 02/23/19 Oxycodone HCl [Oxycontin] 30 mg PO Q12 02/23/19 Rivaroxaban [Xarelto] 20 mg PO DAILY 02/23/19 Tamsulosin HCl [Flomax] 0.4 mg PO DAILY 02/23/19 Telmisartan/Hydrochlorothiazid [Telmisartan-Hctz 80-12.5 mg Tb] 1 each PO DAILY 02/23/19 Tiotropium Br/Olodaterol HCl [Stiolto Respimat Inhal [place]] 2 puff IH DAILY 02/23/19 Allergies/Adverse Reactions: No Known Allergies Allergy (Unverified 08/19/14 15:24) Review of Systems Constitutional: ABSENT: chills, fever(s), headache(s), weight gain, weight loss Eyes: ABSENT: visual disturbances Ears: ABSENT: hearing changes Cardiovascular: ABSENT: chest pain, dyspnea on exertion, edema, orthropnea, palpitations Respiratory: ABSENT: cough, hemoptysis Gastrointestinal: ABSENT: abdominal pain, constipation, diarrhea, hematemesis, hematochezia, nausea, vomiting Genitourinary: ABSENT: dysuria, hematuria Musculoskeletal: ABSENT: joint swelling Integumentary: ABSENT: rash, wounds Neurological: ABSENT: abnormal gait, abnormal speech, confusion, dizziness, focal weakness, syncope Psychiatric: ABSENT: anxiety, depression, homidical ideation, suicidal ideation Endocrine: ABSENT: cold intolerance, heat intolerance, menstrual abnormalities, polydipsia, polyuria Hematologic/Lymphatic: ABSENT: easy bleeding, easy bruising, lymphadenopathy Physical Exam Vital Signs: Temp Pulse Resp BP Pulse Ox 98.8 F 14 132/68 H 100 02/23/19 16:06 02/23/19 15:01 02/23/19 15:00 01/06/20 15:01 General appearance: PRESENT: no acute distress, well-developed, well-nourished Head exam: PRESENT: atraumatic, normocephalic Eye exam: PRESENT: conjunctiva pink, EOMI, PERRLA. ABSENT: scleral icterus Ear exam: PRESENT: normal external ear exam Mouth exam: PRESENT: moist, tongue midline Neck exam: PRESENT: full ROM. ABSENT: carotid bruit, JVD, lymphadenopathy, thyromegaly Respiratory exam: PRESENT: clear to auscultation allan Cardiovascular exam: PRESENT: RRR. ABSENT: diastolic murmur, rubs, systolic murmur Pulses: PRESENT: normal dorsalis pedis pul, +2 pedal pulses bilateral Vascular exam: PRESENT: normal capillary refill GI/Abdominal exam: PRESENT: normal bowel sounds, soft. ABSENT: distended, guard ing, mass, organolmegaly, rebound, tenderness Rectal exam: PRESENT: deferred Musculoskeletal exam: PRESENT: ambulatory Neurological exam: PRESENT: alert, awake, oriented to person, oriented to place, oriented to time, oriented to situation, CN II-XII grossly intact. ABSENT: motor sensory deficit Psychiatric exam: PRESENT: appropriate affect, normal mood. ABSENT: homicidal ideation, suicidal ideation Skin exam: PRESENT: dry, intact, warm. ABSENT: cyanosis, rash Results Laboratory Results: 02/23/19 14:25 02/23/19 14:25 02/23/19 02/23/19 02/23/19 14:25 14:25 14:25 WBC 9.7 RBC 3.56 L Hgb 9.6 L Hct 29.1 L MCV 82 MCH 27.0 MCHC 33.0 RDW 19.7 H Plt Count 276 Seg Neutrophils % Not Reportable VBG pH 7.38 VBG pCO2 37.7 VBG HCO3 21.7 VBG Base Excess -3.1 Sodium 139.3 Potassium 4.5 Chloride 108 H Carbon Dioxide 23 Anion Gap 8 BUN 26 H Creatinine 1.21 Est GFR ( Amer) > 60 Glucose 122 H Calcium 9.1 Magnesium 1.8 Total Bilirubin 0.4 AST 18 Alkaline Phosphatase 70 Total Protein 6.8 Albumin 3.4 L 02/23/19 14:25 Troponin I 0.059 Impressions: Chest X-Ray 02/23/19 13:42 IMPRESSION: Chronic lung changes with no acute cardiopulmonary finding. Head CT 02/23/19 13:42 IMPRESSION: CHRONIC MICROVASCULAR ISCHEMIA. NO ACUTE IMAGING FINDINGS IN THE BRAIN. EVIDENCE OF ACUTE STROKE: NO. Assessment & Plan - Diagnosis (1) Anaphylactic reaction Qualifiers: Encounter type: initial encounter Qualified Code(s): T78.2XXA - Anaphylactic shock, unspecified, initial encounter Is this a current diagnosis for this admission?: Yes Plan: As per discussed with the oncology most likely related to the Opdivo We will give her IV steroid Pepcid Currently all resolved Is to observe for next 24 hours (2) Chronic obstructive pulmonary disease Qualifiers: COPD type: chronic bronchitis Is this a current diagnosis for this admission?: Yes Plan: Continues to DuoNeb nebulizer treatments (3) Hypertension Qualifiers: Hypertension type: essential hypertension Qualified Code(s): I10 - Essential (primary) hypertension Is this a current diagnosis for this admission?: Yes Plan: Continues to current medications (4) Pulmonary embolism Qualifiers: Pulmonary embolism type: unspecified Chronicity: chronic Is this a current diagnosis for this admission?: Yes Plan: Continues on Xarelto (5) Episode of syncope Qualifiers: Syncope type: unspecified Qualified Code(s): R55 - Syncope and collapse Is this a current diagnosis for this admission?: Yes Plan: We will get the MRI of the head We will get the echocardiogram Continues to telemetry monitoring (6) Lung cancer Qualifiers: Lung location: unspecified part of lung Is this a current diagnosis for this admission?: Yes Plan: consult onclogy (7) Elevated troponin I level Is this a current diagnosis for this admission?: Yes Plan: most likly from anphylatic rection and epi will get echo due to ongoing breathing issue with him and recnt all chemo rx consult cardilogist - Time Time Spent: 50 to 70 Minutes Medications reviewed and adjusted accordingly: Yes Anticipated discharge: Home Within: Other - Inpatient Certification Based on my medical assessment, after consideration of the patient's comorbidities, presenting symptoms, or acuity I expect that the services needed warrant INPATIENT care.: Yes I certify that my determination is in accordance with my understanding of Medicare's requirements for reasonable and necessary INPATIENT services [42 CFR 412.3e].: Yes Medical Necessity: Significant Comorbidiites Make Outpatient Treatment Too Risky, Need Close Monitoring Due to Risk of Patient Decompensation, Need For IV Fluids Post Hospital Care: D/C [employer] Director Documentation - Plan Summary Plan Summary: Admit the patient in IMCU See MD orders d/w pt and in er room
[2019-02-23] MEDS ORDERED: LOSARTAN POTASSIUM 50 MG TABLET PO ONE (18:30)
[2019-02-23] MEDS ORDERED: HYDROCHLOROTHIAZIDE 12.5 MG TABLET PO ONE (18:30)
[2019-02-23 18:36] LABS: CREATINE KINASE MB 1.38 ng/mL (<4.55)
[2019-02-23 18:49] LABS: TROPONIN I 0.171 ng/mL
--- NOTE | 2019-02-23 18:52 | RADIOLOGY REPORT (SQ) ---
EXAM DESCRIPTION: MRI HEAD COMBO COMPLETED DATE/TIME: 02/23/2019 6:29 pm REASON FOR STUDY: syncopal episode, CA patient COMPARISON: CT dated 02/23/2019. TECHNIQUE: Multiplanar imaging includes noncontrasted T1, T2, FLAIR, Diffusion with ADC map and post gadolinium contrast T1 sequences. Images stored on PACS. CONTRAST TYPE AND DOSE: 15 mL Dotarem RENAL FUNCTION: Not indicated. ACR Type II contrast agent associated with few, if any, unconfounded cases of NSF LIMITATIONS: None. FINDINGS: ANATOMY: No anomalies. Normal vascular flow voids. Pituitary fossa normal. CSF SPACES: Atrophy-induced prominence of CSF spaces and ventricles. CEREBRUM: High-signal intensity lesions scattered throughout the white matter on FLAIR imaging with d istribution suggesting chronic micro-vascular ischemic change. No evidence of hemorrhage, mass, extra axial fluid collection or acute ischemic change. No enhancing lesions. POSTERIOR FOSSA: No signal alteration. No hemorrhage. No edema, masses, or mass effect. Internal lotus tory canals, cerebello-pontine angles, mastoids normal. No enhancing lesions. ORBITS: No masses. Globes normal. PARANASAL SINUSES: No fluid levels. Mucosa normal. DIFFUSION: Normal. No evidence of recent infarct. OTHER: No other significant finding. IMPRESSION: ATROPHY AND CHRONIC MICRO-VASCULAR ISCHEMIC CHANGES. NO ENHANCING LESIONS. NO ACUTE FI NDINGS. EVIDENCE OF ACUTE STROKE: NO. TECHNICAL DOCUMENTATION: JOB ID: [id number] [employer]- All Rights Reserved Reading location - IP/workstation name: [email or web address]
[2019-02-23] MEDS: IPRATROPIUM/ALBUTEROL 0.5-2.5 MG/3 ML AMPUL NEB SCH (20:56)
--- NOTE | 2019-02-23 21:20 | PDOC CONSULTATION ---
Consultation Consult Date: 02/23/19 Attending physician:: FAHAD UMANA Provider Consulted: MOON JOYNER Consult reason:: Dyspnea and syncope History of Present Illness Admission Date/PCP: 02/23/19 16:22 FAHAD UMANA MD Patient complains of: Dyspnea and syncope History of Present Illness: NELDA MORENO is a 68 year old male With medical history of metastatic lung cancer with spread to the right femur, severe COPD. Patient apparently was receiving immunotherapy in the office and had an episode with sounds like anaphylactic reaction. He was resuscitated his symptoms included dyspnea and syncope. He has no prior cardiac history whatsoev er. There is no report of LV dysfunction of coronary artery disease. Patient has had a right-sided chest port placed for infusions. Evaluation in the emergency room has so far been inconclusive. His EKG is without any significant changes. He is not complaining of any chest pain or dyspnea at the moment. Former lifetime smoker. He quit cigarettes 2 years ago. This was at the time of diagnosis of lung cancer. No familial illnesses reported. Presently does not smoke cigarettes. Past Medical History Cardiac Medical History: Reports: Hyperlipidema, Hypertension Denies: Coronary Artery Disease, Myocardial Infarction Pulmonary Medical History: Reports: Chronic Obstructive Pulmonary Disease (COPD) Denies: Asthma, Bronchitis, Pneumonia Neurological Medical History: Denies: Seizures Musculoskeltal Medical History: Reports: Arthritis Hematology: Denies: Anemia Past Surgical History Past Surgical History: Reports: Orthopedic Surgery - LEFT KNEE Social History Smoking Status: Unknown if Ever Smoked Electronic Cigarette use?: No Frequency of Alcohol Use: None Hx Recreational Drug Use: No Hx Prescription Drug Abuse: No Family History Family History: Reviewed & Not Pertinent Parental Family History Reviewed: No - No familial illnesses Children Family History Reviewed: NA Sibling(s) Family History Reviewed.: NA Medication/Allergy Home Medications: Albuterol Sulfate [Proair Hfa Inhalation Aerosol 8.5 gm Mdi] 2 puff IH Q6HP PRN 02/23/19 Albuterol Sulfate [Ventolin 0.083% Neb 2.5 mg/3 ml Ampul] 1 vial NEB RTQ8 02/23/19 Allopurinol [Zyloprim 100 mg Tablet] 100 mg PO DAILY 02/23/19 Atenolol [Tenormin] 25 mg PO DAILY 02/23/19 Atorvastatin Calcium [Lipitor 40 mg Tablet] 40 mg PO QHS 02/23/19 Calcium Carbonate [Calcium] 600 mg PO DAILY 02/23/19 Fenofibrate Nanocrystallized [Tricor 145 mg Tablet] 145 mg PO QHS 02/23/19 Folic Acid [Folvite 1 mg Tablet] 1 mg PO DAILY 02/23/19 Gabapentin [Neurontin 300 mg Capsule] 300 mg PO Q8 02/23/19 Oxycodone HCl [Oxy-Ir 5 mg Tablet] 15 mg PO Q6HP PRN 02/23/19 Oxycodone HCl [Oxycontin] 30 mg PO Q12 02/23/19 Rivaroxaban [Xarelto] 20 mg PO DAILY 02/23/19 Tamsulosin HCl [Flomax] 0.4 mg PO DAILY 02/23/19 Telmisartan/Hydrochlorothiazid [Telmisartan-Hctz 80-12.5 mg Tb] 1 each PO DAILY 02/23/19 Tiotropium Br/Olodaterol HCl [Stiolto Respimat Inhal [place]] 2 puff IH DAILY 02/23/19 Allergies/Adverse Reactions: No Known Allergies Allergy (Unverified 08/19/14 15:24) Review of Systems Constitutional: PRESENT: as per HPI Cardiovascular: PRESENT: as per HPI Respiratory: PRESENT: dyspnea Neurological: PRESENT: syncope Physical Exam Vital Signs: Temp Pulse Resp BP Pulse Ox 98.8 F 73 18 134/85 H 97 02/23/19 16:06 02/23/19 20:56 02/23/19 20:56 02/23/19 20:01 02/23/19 20:56 Intake & Output 02/22/19 02/23/19 02/24/19 06:59 06:59 06:59 Intake Total 1000 Balance 1000 Weight 75.75 kg General appearance: PRESENT: no acute distress, cooperative Head exam: PRESENT: atraumatic, normocephalic Eye exam: PRESENT: conjunctiva pink, EOMI Mouth exam: PRESENT: moist Respiratory exam: PRESENT: decreased breath sounds, rales, symmetrical Cardiovascular exam: PRESENT: RRR, +S1, +S2 Pulses: PRESENT: normal radial pulses GI/Abdominal exam: PRESENT: soft Rectal exam: PRESENT: deferred Musculoskeletal exam: PRESENT: normal inspection Neurological exam: PRESENT: alert, awake, oriented to person, oriented to place, oriented to time, CN II-XII grossly intact Psychiatric exam: PRESENT: appropriate affect Skin exam: PRESENT: dry, intact Results Laboratory Results: 02/23/19 14:25 02/23/19 14:25 02/23/19 02/23/19 02/23/19 14:25 14:25 14:25 WBC 9.7 RBC 3.56 L Hgb 9.6 L Hct 29.1 L MCV 82 MCH 27.0 MCHC 33.0 RDW 19.7 H Plt Count 276 Seg Neutrophils % Not Reportable VBG pH 7.38 VBG pCO2 37.7 VBG HCO3 21.7 VBG Base Excess -3.1 Sodium 139.3 Potassium 4.5 Chloride 108 H Carbon Dioxide 23 Anion Gap 8 BUN 26 H Creatinine 1.21 Est GFR ( Amer) > 60 Glucose 122 H Calcium 9.1 Magnesium 1.8 Total Bilirubin 0.4 AST 18 Alkaline Phosphatase 70 Total Protein 6.8 Albumin 3.4 L 02/23/19 02/23/19 02/23/19 14:25 14:25 17:48 Creatine Kinase 92 CK-MB (CK-2) 1.38 Troponin I 0.059 0.171 EKG Comments: Twelve-lead EKG 02/23/2019 Sinus rhythm nondiagnostic inferior Q waves 85 bpm, QTC is 405 ms. Twelve-lead EKG 10/27/2018 Sinus rhythm 75 bpm, QTC 434 ms. Normal voltage. Nonspecific ST-T changes. Impressions: Chest X-Ray 02/23/19 13:42 IMPRESSION: Chronic lung changes with no acute cardiopulmonary finding. Head CT 02/23/19 13:42 IMPRESSION: CHRONIC MICROVASCULAR ISCHEMIA. NO ACUTE IMAGING FINDINGS IN THE BRAIN. EVIDENCE OF ACUTE STROKE: NO. Head MRI 02/23/19 16:12 IMPRESSION: ATROPHY AND CHRONIC MICRO-VASCULAR ISCHEMIC CHANGES. NO ENHANCING LESIONS. NO ACUTE FINDINGS. EVIDENCE OF ACUTE STROKE: NO. Assessment & Plan - Diagnosis (1) Episode of syncope Qualifiers: Syncope type: unspecified Qualified Code(s): R55 - Syncope and collapse Is this a current diagnosis for this admission?: Yes Plan: And to observe on telemetry Clinically volume status appears to be good We will obtain transthoracic echocardiogram to evaluate heart structure and function and exclude a cardiac cause of this episode. (2) Anaphylactic reaction Qualifiers: Encounter type: initial encounter Qualified Code(s): T78.2XXA - Anaphylactic shock, unspecified, initial encounter Is this a current diagnosis for this admission?: Yes Plan: Seems to have been resuscitated from what is likely an anaphylactic response to treatment agent for lung cancer. We will continue to observe. (3) Lung cancer Qualifiers: Lung location: unspecified part of lung Is this a current diagnosis for this admission?: Yes Plan: Treatment per oncology. Patient had received immunotherapy-optiva - Notes Notes: Continue to observe on telemetry We will obtain transthoracic echocardiogram
[2019-02-23] MEDS: FAMOTIDINE 20 MG TABLET PO SCH (21:26)
[2019-02-23] MEDS: GABAPENTIN 300 MG CAPSULE PO SCH (21:26)
[2019-02-23] MEDS: METHYLPREDNISOLONE INJ 40 MG/1 ML SDV IV SCH (21:26)
[2019-02-23] MEDS: ATORVASTATIN CALCIUM 40 MG TABLET PO SCH (21:26)
[2019-02-23] MEDS ORDERED: (PENDING PHARMACY ID) (Oxycodone Hcl [Oxycontin] 30 MG) PO SCH (22:00)
[2019-02-23] MEDS ORDERED: OXYCODONE HCL SR 10 MG TABLET PO SCH (22:00)
--- NOTE | 2019-02-23 22:10 | EKG REPORT ---
SEVERITY:- ABNORMAL ECG - SINUS RHYTHM PROBABLE INFERIOR INFARCT, AGE INDETERMINATE : Confirmed by: Chaitanya Leigh 23-Feb-2019 22:09:36
[2019-02-23 22:26] LABS: APPEARANCE,URINE CLEAR; BILIRUBIN,URINE NEGATIVE (NEGATIVE); COLOR,URINE YELLOW; GLUCOSE, URINE NEGATIVE (NEGATIVE); KETONES,URINE NEGATIVE (NEGATIVE); LEUKOCYTE ESTERASE,URINE NEGATIVE (NEGATIVE); NITRITE,URINE NEGATIVE (NEGATIVE); PROTEIN,URINE NEGATIVE (NEGATIVE); URINE SPECIFIC GRAVITY 1.013; UROBILINOGEN,URINE NEGATIVE mg/dL (<2.0)
[2019-02-23 22:40] LABS: URINE AMPHETAMINES SCREEN NEGATIVE; URINE BARBITURATES SCREEN NEGATIVE; URINE BENZODIAZEPINES SCREEN NEGATIVE; URINE COCAINE SCREEN NEGATIVE; URINE MARIJUANA (THC) SCREEN NEGATIVE; URINE METHADONE SCREEN NEGATIVE; URINE PHENCYCLIDINE SCREEN NEGATIVE
[2019-02-23 23:11] LABS: CREATINE KINASE MB 1.46 ng/mL (<4.55)
[2019-02-23 23:14] LABS: TROPONIN I 0.154 ng/mL
[2019-02-24] MEDS: METHYLPREDNISOLONE INJ 40 MG/1 ML SDV IV SCH (05:46)
[2019-02-24] MEDS: GABAPENTIN 300 MG CAPSULE PO SCH ×3 (05:46→21:04)
[2019-02-24 05:50] LABS: ABSOLUTE LYMPHOCYTES (AUTO) 0.2 10^3/uL (0.5-4.7); ABSOLUTE MONOCYTES (AUTO) 0.1 10^3/uL (0.1-1.4); ABSOLUTE NEUT (AUTO) 3.2 10^3/uL (1.7-8.2); BASOPHILS % (AUTO) 0.1 % (0-2); HEMATOCRIT 27.8 % (37.9-51.0); HEMOGLOBIN 9.3 g/dL (13.5-17.0); LYMPHOCYTES % (AUTO) 6.9 % (13-45); MEAN CORPUSCULAR HEMOGLOBIN 27.2 pg (27.0-33.4); MEAN CORPUSCULAR HGB CONC 33.3 g/dL (32.0-36.0); MEAN CORPUSCULAR VOLUME 82 fl (80-97); MONOCYTES % (AUTO) 3.9 % (3-13); PLATELET COUNT 273 10^3/uL (150-450); RED CELL DISTRIBUTION WIDTH 19.9 % (11.5-14.0); SEGMENTED NEUTROPHILS % (AUTO) 89.1 % (42-78); TOTAL CELLS COUNTED % (AUTO) 100 %; WHITE BLOOD COUNT 3.6 10^3/uL (4.0-10.5)
[2019-02-24] MEDS: OXYCODONE HCL SR 10 MG TABLET PO SCH ×2 (05:57→17:02)
[2019-02-24 06:14] LABS: ALBUMIN 3.3 g/dL (3.5-5.0); ALKALINE PHOSPHATASE 64 U/L (38-126); ANION GAP 11 (5-19); ASPARTATE AMINO TRANSFERASE 17 U/L (17-59); BILIRUBIN,DIRECT 0.2 mg/dL (0.0-0.4); BILIRUBIN,TOTAL 0.2 mg/dL (0.2-1.3); BLOOD UREA NITROGEN 29 mg/dL (7-20); CALCIUM 9.1 mg/dL (8.4-10.2); CARBON DIOXIDE 21 mmol/L (22-30); CHLORIDE 108 mmol/L (98-107); CREATINE KINASE 97 U/L (55-170); GLUCOSE 143 mg/dL (75-110); POTASSIUM 4.9 mmol/L (3.6-5.0); TOTAL PROTEIN 6.6 g/dL (6.3-8.2)
[2019-02-24 06:23] LABS: CREATINE KINASE MB 1.12 ng/mL (<4.55)
[2019-02-24 06:32] LABS: TROPONIN I 0.1 ng/mL
[2019-02-24] MEDS: IPRATROPIUM/ALBUTEROL 0.5-2.5 MG/3 ML AMPUL NEB SCH ×3 (08:21→20:30)
--- NOTE | 2019-02-24 08:45 | PDOC PROGRESS REPORT ---
Subjective Progress Note for:: 02/24/19 Subjective:: Patient is currently doing much better Patient's denied any chest pain no short of breath Denied any difficulty in breathing no stridor no rash Patient's cardiac enzyme is elevated but EKG no changes Discussed with the cardiology and suggest just wait for the echocardiogram does not look like any acute coronary syndrome or related to the anaphylactic reactions and epinephrineTo increase the cardiac enzyme Reason For Visit: SYNCOPE EPISODE Physical Exam Vital Signs: Temp Pulse Resp BP Pulse Ox 97.9 F 75 14 140/75 H 100 02/24/19 04:11 02/24/19 07:00 02/24/19 06:01 02/24/19 06:01 02/24/19 06:01 Intake & Output 02/23/19 02/24/19 02/25/19 06:59 06:59 06:59 Intake Total 1600 Output Total 325 Balance 1275 Weight 75.75 kg General appearance: PRESENT: no acute distress, well-developed, well-nourished Head exam: PRESENT: atraumatic, normocephalic Eye exam: PRESENT: conjunctiva pink, EOMI, PERRLA. ABSENT: scleral icterus Ear exam: PRESENT: normal external ear exam Mouth exam: PRESENT: moist, tongue midline Neck exam: PRESENT: full ROM. ABSENT: carotid bruit, JVD, lymphadenopathy, thyromegaly Respiratory exam: PRESENT: clear to auscultation allan Cardiovascular exam: PRESENT: RRR. ABSENT: diastolic murmur, rubs, systolic murmur Pulses: PRESENT: normal dorsalis pedis pul, +2 pedal pulses bilateral Vascular exam: PRESENT: normal capillary refill GI/Abdominal exam: PRESENT: normal bowel sounds, soft. ABSENT: distended, guarding, mass, organolmegaly, rebound, tenderness Rectal exam: PRESENT: deferred Extremities exam: ABSENT: pedal edema Musculoskeletal exam: PRESENT: ambulatory Neurological exam: PRESENT: alert, awake, oriented to person, oriented to place, oriented to time, oriented to situation, CN II-XII grossly intact. ABSENT: motor sensory deficit Psychiatric exam: PRESENT: appropriate affect, normal mood. ABSENT: homicidal ideation, suicidal ideation Skin exam: PRESENT: dry, intact, warm. ABSENT: cyanosis, rash Results Laboratory Results: 02/24/19 05:29 02/24/19 05:29 0102/23/19 02/23/19 14:25 14:25 14:25 WBC 9.7 RBC 3.56 L Hgb 9.6 L Hct 29.1 L MCV 82 MCH 27.0 MCHC 33.0 RDW 19.7 H Plt Count 276 Seg Neutrophils % Not Reportable VBG pH 7.38 VBG pCO2 37.7 VBG HCO3 21.7 VBG Base Excess -3.1 Sodium 139.3 Potassium 4.5 Chloride 108 H Carbon Dioxide 23 Anion Gap 8 BUN 26 H Creatinine 1.21 Est GFR ( Amer) > 60 Glucose 122 H Calcium 9.1 Magnesium 1.8 Total Bilirubin 0.4 AST 18 Alkaline Phosphatase 70 Total Protein 6.8 Albumin 3.4 L Urine Color Urine Appearance Urine pH Ur Specific [place] Urine Protein Urine Glucose (UA) Urine Ketones Urine Blood Urine Nitrite Ur Leukocyte Esterase Urine WBC (Auto) 02/23/19 02/24/19 02/24/19 22:06 05:29 05:29 WBC 3.6 L RBC 3.40 L Hgb 9.3 L Hct 27.8 L MCV 82 MCH 27.2 MCHC 33.3 RDW 19.9 H Plt Count 273 Seg Neutrophils % 89.1 H VBG pH VBG pCO2 VBG HCO3 VBG Base Excess Sodium 140.4 Potassium 4.9 Chloride 108 H Carbon Dioxide 21 L Anion Gap 11 BUN 29 H Creatinine 1.13 Est GFR ( Amer) > 60 Glucose 143 H Calcium 9.1 Magnesium 1.9 Total Bilirubin 0.2 AST 17 Alkaline Phosphatase 64 Total Protein 6.6 Albumin 3.3 L Urine Color YELLOW Urine Appearance CLEAR Urine pH 6.0 Ur Specific [place] 1.013 Urine Protein NEGATIVE Urine Glucose (UA) NEGATIVE Urine Ketones NEGATIVE Urine Blood NEGATIVE Urine Nitrite NEGATIVE Ur Leukocyte Esterase NEGATIVE Urine WBC (Auto) 1 02/23/19 02/23/19 02/23/19 14:25 14:25 17:48 Creatine Kinase 92 CK-MB (CK-2) 1.38 Troponin I 0.059 0.171 02/23/19 02/23/19 02/24/19 22:18 22:18 05:29 Creatine Kinase 103 97 CK-MB (CK-2) 1.46 Troponin I 0.154 02/24/19 05:29 Creatine Kinase CK-MB (CK-2) 1.12 Troponin I 0.100 Impressions: Chest X-Ray 02/23/19 13:42 IMPRESSION: Chronic lung changes with no acute cardiopulmonary finding. Head CT 02/23/19 13:42 IMPRESSION: CHRONIC MICROVASCULAR ISCHEMIA. NO ACUTE IMAGING FINDINGS IN THE BRAIN. EVIDENCE OF ACUTE STROKE: NO. Head MRI 02/23/19 16:12 IMPRESSION: ATROPHY AND CHRONIC MICRO-VASCULAR ISCHEMIC CHANGES. NO ENHANCING LESIONS. NO ACUTE FINDINGS. EVIDENCE OF ACUTE STROKE: NO. Assessment & Plan - Diagnosis (1) Anaphylactic reaction Qualifiers: Encounter type: initial encounter Qualified Code(s): T78.2XXA - Anaphylactic shock, unspecified, initial encounter Is this a current diagnosis for this admission?: Yes Plan: Currently all resolved will DC the IV Solu-Medrol start on a p.o. prednisone (2) Chronic obstructive pulmonary disease Qualifiers: COPD type: chronic bronchitis Is this a current diagnosis for this admission?: Yes Plan: Continues to DuoNeb nebulizer treatments (3) Hypertension Qualifiers: Hypertension type: essential hypertension Qualified Code(s): I10 - Essential (primary) hypertension Is this a current diagnosis for this admission?: Yes Plan: Continues to current medications (4) Pulmonary embolism Qualifiers: Pulmonary embolism type: unspecified Chronicity: chronic Is this a current diagnosis for this admission?: Yes Plan: Continues on Xarelto (5) Episode of syncope Qualifiers: Syncope type: unspecified Qualified Code(s): R55 - Syncope and collapse Is this a current diagnosis for this admission?: Yes (6) Lung cancer Qualifiers: Lung location: unspecified part of lung Is this a current diagnosis for this admission?: Yes (7) Elevated troponin I level Is this a current diagnosis for this admission?: Yes Plan: Currently all stable - Time Time Spent with patient: 15-24 minutes Level of Care: IMCU Medications reviewed and adjusted accordingly: Yes Anticipated discharge: Other Within: Other - Plan Summary Plan Summary: Discussed with the patient and her regarding the all current conditions Will discontinue IV fluid and IV steroid Will wait for the echo report
[2019-02-24] MEDS: FAMOTIDINE 20 MG TABLET PO SCH ×2 (09:59→21:04)
[2019-02-24] MEDS ORDERED: CALCIUM CARBONATE 500 MG TABLET PO SCH (10:00)
[2019-02-24] MEDS ORDERED: FOLIC ACID 1 MG TABLET PO SCH (10:00)
[2019-02-24] MEDS ORDERED: LOSARTAN POTASSIUM 50 MG TABLET PO SCH (10:00)
[2019-02-24] MEDS ORDERED: (PENDING PHARMACY ID) (Atenolol [Tenormin] 25 MG) PO SCH (10:00)
[2019-02-24] MEDS: PREDNISONE 20 MG TABLET PO SCH ×2 (10:00→17:02)
[2019-02-24] MEDS ORDERED: HYDROCHLOROTHIAZIDE 12.5 MG TABLET PO SCH ×2 (10:00)
[2019-02-24] MEDS ORDERED: (PENDING PHARMACY ID) (Telmisartan/Hydrochlorothiazid [Telmisartan-Hctz 80-12.5 Mg Tb] 1 E PO SCH (10:00)
[2019-02-24] MEDS ORDERED: (PENDING PHARMACY ID) (Tiotropium Br/Olodaterol Hcl [Stiolto Respimat Inhal Spray] 2 PUFF) IH SCH (10:00)
[2019-02-24] MEDS ORDERED: TAMSULOSIN HCL 0.4 MG CAP.SR.24H PO SCH (10:00)
[2019-02-24] MEDS ORDERED: ATENOLOL 50 MG TABLET PO SCH (10:00)
[2019-02-24] MEDS ORDERED: (PENDING PHARMACY ID) (Calcium Carbonate [Calcium] 600 MG) PO SCH (10:00)
[2019-02-24] MEDS ORDERED: RIVAROXABAN 10 MG TABLET PO SCH (10:00)
[2019-02-24] MEDS ORDERED: ALLOPURINOL 100 MG TABLET PO SCH (10:00)
[2019-02-24] MEDS ORDERED: LOSARTAN POTASSIUM 25 MG TABLET PO SCH (10:00)
--- NOTE | 2019-02-24 16:23 | PDOC CONSULTATION ---
Consultation Consult Date: 02/24/19 Provider Consulted: JEROD REDDY Consult reason:: Hematology/Oncology consulatation was reuqested for patient who had a severe reaction to Opdivo treatments for his Lung cancer. History of Present Illness Admission Date/PCP: 02/23/19 16:22 FAHAD UMANA MD History of Present Illness: NELDA MORENO is a 68 year old male who was receiving his second dose of Opdivo on 02/23/2018 for his stage IV lung cancer. During this infusion, he had a severe reaction with stridor, nausea, vomiting. Although O2 sats remained normal, patient was dyspnic. He was given benadryl, dexamethasone and Epi and transferred to the ED. This morning, he states that he is feeling much better. Plans are to check ECHO and make sure cardiac enzymes are OK after the EPI. He denies any current dyspnea or chest pain. He is not requiring any oxygen. However, states that he dies have severe dyspnea on exertion which started prior to his treatments. He has been evaluated for home oxygen in the past, bit has not qualified. Past Medical History Cardiac Medical History: Reports: Hyperlipidema, Hypertension Denies: Coronary Artery Disease, Myocardial Infarction Pulmonary Medical History: Reports: Chronic Obstructive Pulmonary Disease (COPD) Denies: Asthma, Bronchitis, Pneumonia Neurological Medical History: Denies: Seizures Musculoskeltal Medical History: Reports: Arthritis Hematology: Denies: Anemia Past Surgical History Past Surgical History: Reports: Orthopedic Surgery - LEFT KNEE Social History Smoking Status: Former Smoker Electronic Cigarette use?: No Number of Years Smokin Frequency of Alcohol Use: Occasional Hx Recreational Drug Use: No Drugs: None Hx Prescription Drug Abuse: No Family History Parental Family History Reviewed: Yes Children Family History Reviewed: No Sibling(s) Family History Reviewed.: No Medication/Allergy Home Medications: Albuterol Sulfate [Proair Hfa Inhalation Aerosol 8.5 gm Mdi] 2 puff IH Q6HP PRN 02/23/19 Albuterol Sulfate [Ventolin 0.083% Neb 2.5 mg/3 ml Ampul] 1 vial NEB RTQ8 02/23/19 Allopurinol [Zyloprim 100 mg Tablet] 100 mg PO DAILY 02/23/19 Atenolol [Tenormin] 25 mg PO DAILY 02/23/19 Atorvastatin Calcium [Lipitor 40 mg Tablet] 40 mg PO QHS 02/23/19 Calcium Carbonate [Calcium] 600 mg PO DAILY 02/23/19 Fenofibrate Nanocrystallized [Tricor 145 mg Tablet] 145 mg PO QHS 02/23/19 Folic Acid [Folvite 1 mg Tablet] 1 mg PO DAILY 02/23/19 Gabapentin [Neurontin 300 mg Capsule] 300 mg PO Q8 02/23/19 Oxycodone HCl [Oxy-Ir 5 mg Tablet] 15 mg PO Q6HP PRN 02/23/19 Oxycodone HCl [Oxycontin] 30 mg PO Q12 02/23/19 Rivaroxaban [Xarelto] 20 mg PO DAILY 02/23/19 Tamsulosin HCl [Flomax] 0.4 mg PO DAILY 02/23/19 Telmisartan/Hydrochlorothiazid [Telmisartan-Hctz 80-12.5 mg Tb] 1 each PO DAILY 02/23/19 Tiotropium Br/Olodaterol HCl [Stiolto Respimat Inhal [place]] 2 puff IH DAILY 02/23/19 Allergies/Adverse Reactions: No Known Allergies Allergy (Unverified 08/19/14 15:24) Review of Systems Constitutional: ABSENT: fever(s) Eyes: ABSENT: visual disturbances Ears: ABSENT: hearing changes Nose, Mouth, and Throat: ABSENT: sore throat Cardiovascular: ABSENT: chest pain Respiratory: PRESENT: as per HPI Gastrointestinal: PRESENT: nausea, vomiting Genitourinary: ABSENT: dysuria Integumentary: ABSENT: rash Hematologic/Lymphatic: ABSENT: easy bleeding Physical Exam Vital Signs: Temp Pulse Resp BP Pulse Ox 98.1 F 73 14 128/67 H 99 02/24/19 08:00 02/24/19 14:22 02/24/19 14:22 02/24/19 08:00 02/24/19 14:22 Intake & Output 02/23/19 02/24/19 02/25/19 06:59 06:59 06:59 Intake Total 1600 Output Total 325 Balance 1275 Weight 75.75 kg General appearance: PRESENT: no acute distress, obese Exam: 68 year old male. Head exam: PRESENT: atraumatic, normocephalic Eye exam: PRESENT: EOMI Mouth exam: PRESENT: tongue midline Neck exam: ABSENT: lymphadenopathy, tenderness Respiratory exam: PRESENT: clear to auscultation allan, unlabored Cardiovascular exam: PRESENT: RRR GI/Abdominal exam: PRESENT: soft. ABSENT: tenderness Extremities exam: ABSENT: pedal edema Neurological exam: PRESENT: alert, awake Psychiatric exam: PRESENT: appropriate affect Skin exam: PRESENT: normal color Results Laboratory Results: 02/24/19 05:29 02/24/19 05:29 02/23/19 02/24/19 02/24/19 22:06 05:29 05:29 WBC 3.6 L RBC 3.40 L Hgb 9.3 L Hct 27.8 L MCV 82 MCH 27.2 MCHC 33.3 RDW 19.9 H Plt Count 273 Seg Neutrophils % 89.1 H Sodium 140.4 Potassium 4.9 Chloride 108 H Carbon Dioxide 21 L Anion Gap 11 BUN 29 H Creatinine 1.13 Est GFR ( Amer) > 60 Glucose 143 H Calcium 9.1 Magnesium 1.9 Total Bilirubin 0.2 AST 17 Alkaline Phosphatase 64 Total Protein 6.6 Albumin 3.3 L Urine Color YELLOW Urine Appearance CLEAR Urine pH 6.0 Ur Specific [place] 1.013 Urine Protein NEGATIVE Urine Glucose (UA) NEGATIVE Urine Ketones NEGATIVE Urine Blood NEGATIVE Urine Nitrite NEGATIVE Ur Leukocyte Esterase NEGATIVE Urine WBC (Auto) 1 02/23/19 02/23/19 02/23/19 14:25 14:25 17:48 Creatine Kinase 92 CK-MB (CK-2) 1.38 Troponin I 0.059 0.171 02/23/19 02/23/19 02/24/19 22:18 22:18 05:29 Creatine Kinase 103 97 CK-MB (CK-2) 1.46 Troponin I 0.154 02/24/19 05:29 Creatine Kinase CK-MB (CK-2) 1.12 Troponin I 0.100 Impressions: Chest X-Ray 02/23/19 13:42 IMPRESSION: Chronic lung changes with no acute cardiopulmonary finding. Head CT 02/23/19 13:42 IMPRESSION: CHRONIC MICROVASCULAR ISCHEMIA. NO ACUTE IMAGING FINDINGS IN THE BRAIN. EVIDENCE OF ACUTE STROKE: NO. Head MRI 02/23/19 16:12 IMPRESSION: ATROPHY AND CHRONIC MICRO-VASCULAR ISCHEMIC CHANGES. NO ENHANCING LESIONS. NO ACUTE FINDINGS. EVIDENCE OF ACUTE STROKE: NO. Assessment & Plan - Diagnosis (1) Anaphylactic reaction Qualifiers: Encounter type: initial encounter Qualified Code(s): T78.2XXA - Anaphylactic shock, unspecified, initial encounter Is this a current diagnosis for this admission?: Yes Plan: No further Opdivo planned. (2) Lung cancer Qualifiers: Lung location: unspecified part of lung Is this a current diagnosis for this admission?: Yes Plan: Will discuss further treatment as outpatient. - Plan Summary Plan Summary: Agree with plans for Echo and further cardiac evaluation. Patient feeling much better currently.
--- NOTE | 2019-02-24 17:36 | XCELERA REPORT ---
[address] [address] Transthoracic Echocardiogram Report Name: NELDA MORENO Age: 68 yrs Gender: Male : 1950 Patient Status: Inpatient Patient Location: [place] [id number]^[id number] Study Date: 02/24/2019 03:16 PM History: Lung cancer Syncope Height: 71 in Weight: 167 lb BSA: 2.0 m2 Procedure: A complete two-dimensional transthoracic echocardiogram was performed (2D, M-mode, spectral and color flow Doppler). The study was technically difficult with many images being suboptimal in quality. Reason For Study: elevated troponin/syncoapl episode Previous Evaluation: No previous studies were available. History: Lung cancer Syncope. Ordering Physician: FAHAD UMANA Performed By: Ryan Gore Interpretation Summary The study was technically difficult with many images being suboptimal in quality. Left ventricular systolic function is normal. The Ejection Fraction estimate is 55-60% The right ventricle is normal in size and function. There is a trace to mild amount of mitral regurgitation There is no aortic valve stenosis There is a trace amount of tricuspid regurgitation There is no pericardial effusion. MMode/2D Measurements & Calculations RVDd: 3.3 cm LVIDd: 5.9 cm FS: 38.0 % Ao root diam: 3.2 cm IVSd: 0.80 cm LVIDs: 3.7 cm EDV(Teich): 176.0 ml Ao root area: 7.8 cm2 LVPWd: 0.81 cm ESV(Teich): 57.5 ml LA dimension: 4.0 cm EF(Teich): 67.3 % Doppler Measurements & Calculations MV E max stanislav: MV P1/2t max stanislav: Ao V2 max: LV V1 max P.1 cm/sec 75.3 cm/sec 149.6 cm/sec 7.8 mmHg MV A max stanislav: MV P1/2t: 86.8 msec Ao max P.0 mmHgLV V1 max: 67.6 cm/sec MVA(P1/2t): 2.5 cm2 139.8 cm/sec MV E/A: 1.0 MV dec slope: 254.3 cm/sec2 MV dec time: 0.31 sec PA V2 max: PI end-d stanislav: MV P1/2t-pr_phl: 121.7 cm/sec 125.1 cm/sec 86.8 msec PA max P.9 mmHg Left Ventricle The left ventricle is normal in size. Left ventricular systolic function is normal. The Ejection Fraction estimate is 55-60%. Doppler measurements suggest pseudonormalized left ventricular relaxation, which is associated with grade II/IV or mild to moderate diastolic dysfunction. The left ventricular wall motion is normal. Right Ventricle The right ventricle is normal in size and function. Atria The right atrium is normal. The left atrial size is normal. Mitral Valve The mitral valve is grossly normal. There is a trace to mild amount of mitral regurgitation. Aortic Valve The aortic valve is not well visualized secondary to technical limitations. The aortic valve opens well. There is no aortic valve stenosis. No aortic regurgitation is present. Tricuspid Valve The tricuspid valve is not well visualized, but is grossly normal. There is a trace amount of tricuspid regurgitation. Tricuspid regurgitation jet envelope not well defined to measure RV systolic pressure accurately. Pulmonic Valve The pulmonic valve is not well visualized. There is a mild amount of pulmonic regurgitation. Great Vessels The aortic root is normal size. The inferior vena cava appeared normal and decreased > 50% with respiration (RAP 5-10 mmHg). Effusions There is no pericardial effusion. : FAHAD UMANA Anil
[2019-02-24] MEDS: ATORVASTATIN CALCIUM 40 MG TABLET PO SCH (21:04)
[2019-02-25 05:51] LABS: ANION GAP 7 (5-19); BLOOD UREA NITROGEN 32 mg/dL (7-20); CARBON DIOXIDE 25 mmol/L (22-30); CHLORIDE 107 mmol/L (98-107); GLUCOSE 109 mg/dL (75-110); POTASSIUM 4.9 mmol/L (3.6-5.0)
[2019-02-25] MEDS: OXYCODONE HCL SR 10 MG TABLET PO SCH (06:25)
[2019-02-25] MEDS: GABAPENTIN 300 MG CAPSULE PO SCH (06:25)
[2019-02-25 06:31] LABS: HEMOGLOBIN 9.2 g/dL (13.5-17.0); MEAN CORPUSCULAR HEMOGLOBIN 27.4 pg (27.0-33.4); MEAN CORPUSCULAR HGB CONC 33.9 g/dL (32.0-36.0); MEAN CORPUSCULAR VOLUME 81 fl (80-97); PLATELET COUNT 283 10^3/uL (150-450); RED BLOOD COUNT 3.35 10^6/uL (4.35-5.55)
[2019-02-25 06:39] LABS: ABSOLUTE LYMPHOCYTES# (MANUAL) 0.5 10^3/uL (0.5-4.7); ABSOLUTE MONOCYTES # (MANUAL) 0.2 10^3/uL (0.1-1.4); BAND NEUTROPHILS % (MANUAL) 1 % (3-5); BASOPHILS % (MANUAL) 0 % (0-2); EOSINOPHILS % (MANUAL) 0 % (0-6); LYMPHOCYTES % (MANUAL) 6 % (13-45); MONOCYTES % (MANUAL) 2 % (3-13); SEGMENTED NEUTROPHILS % (MAN) 91 % (42-78); TOTAL CELLS COUNTED 100
[2019-02-25 06:41] LABS: ANISOCYTOSIS 2+; OVALOCYTES 1+
[2019-02-25 06:42] LABS: PLATELET COMMENT ADEQUATE; TEAR DROP CELLS 1+; WHITE BLOOD COUNT 7.8 10^3/uL (4.0-10.5)
[2019-02-25] MEDS: IPRATROPIUM/ALBUTEROL 0.5-2.5 MG/3 ML AMPUL NEB SCH (07:41)
[2019-02-25 09:02] VITALS: BP 144/65
--- NOTE | 2019-02-25 09:29 | PDOC PROGRESS REPORT ---
Subjective Progress Note for:: 02/25/19 Subjective:: Patient doing much better, had long discussion about next steps of care. Reason For Visit: SYNCOPE EPISODE Physical Exam Vital Signs: Temp Pulse Resp BP Pulse Ox 97.3 F 83 12 144/65 H 95 02/25/19 08:56 02/25/19 08:56 02/25/19 08:56 02/25/19 08:56 02/25/19 08:56 Intake & Output 02/24/19 02/25/19 02/26/19 06:59 06:59 06:59 Intake Total 1600 1450 Output Total 325 150 Balance 1275 1300 Weight 75.75 kg 77.3 kg General appearance: PRESENT: no acute distress, well-developed, well-nourished Head exam: PRESENT: atraumatic, normocephalic Eye exam: PRESENT: conjunctiva pink, EOMI, PERRLA. ABSENT: scleral icterus Ear exam: PRESENT: normal external ear exam Mouth exam: PRESENT: moist, tongue midline Neck exam: ABSENT: carotid bruit, JVD, lymphadenopathy, thyromegaly Respiratory exam: PRESENT: clear to auscultation allan. ABSENT: rales, rhonchi, wheezes Cardiovascular exam: PRESENT: RRR. ABSENT: diastolic murmur, rubs, systolic murmur Pulses: PRESENT: normal dorsalis pedis pul Vascular exam: PRESENT: normal capillary refill GI/Abdominal exam: PRESENT: normal bowel sounds, soft. ABSENT: distended, guarding, mass, organolmegaly, rebound, tenderness Rectal exam: PRESENT: deferred Extremities exam: PRESENT: full ROM. ABSENT: calf tenderness, clubbing, pedal edema Neurological exam: PRESENT: alert, awake, oriented to person, oriented to place, oriented to time, oriented to situation, CN II-XII grossly intact. ABSENT: motor sensory deficit Psychiatric exam: PRESENT: appropriate affect, normal mood. ABSENT: homicidal ideation, suicidal ideation Skin exam: PRESENT: dry, intact, warm. ABSENT: cyanosis, rash Results Laboratory Results: 02/25/19 04:40 02/25/19 04:40 02/25/19 02/25/19 04:40 04:40 WBC 7.8 D RBC 3.35 L Hgb 9.2 L Hct 27.0 L MCV 81 MCH 27.4 MCHC 33.9 RDW 20.0 H Plt Count 283 Seg Neutrophils % Not Reportable Sodium 138.9 Potassium 4.9 Chloride 107 Carbon Dioxide 25 Anion Gap 7 BUN 32 H Creatinine 1.18 Est GFR ( Amer) > 60 Glucose 109 Calcium 9.0 Magnesium 2.1 02/23/19 02/23/19 02/23/19 14:25 14:25 17:48 Creatine Kinase 92 CK-MB (CK-2) 1.38 Troponin I 0.059 0.171 02/23/19 02/23/19 02/24/19 22:18 22:18 05:29 Creatine Kinase 103 97 CK-MB (CK-2) 1.46 Troponin I 0.154 02/24/19 05:29 Creatine Kinase CK-MB (CK-2) 1.12 Troponin I 0.100 Impressions: Chest X-Ray 02/23/19 13:42 IMPRESSION: Chronic lung changes with no acute cardiopulmonary finding. Head CT 02/23/19 13:42 IMPRESSION: CHRONIC MICROVASCULAR ISCHEMIA. NO ACUTE IMAGING FINDINGS IN THE BRAIN. EVIDENCE OF ACUTE STROKE: NO. Head MRI 02/23/19 16:12 IMPRESSION: ATROPHY AND CHRONIC MICRO-VASCULAR ISCHEMIC CHANGES. NO ENHANCING LESIONS. NO ACUTE FINDINGS. EVIDENCE OF ACUTE STROKE: NO. Assessment & Plan - Diagnosis (1) Lung cancer Qualifiers: Laterality: right Lung location: overlapping sites Qualified Code(s): C34.81 - Malignant neoplasm of overlapping sites of right bronchus and lung Is this a current diagnosis for this admission?: Yes Plan: We will continue with further immunotherapy as an outpatient but change immunotherapy. I had a long discussion with patient about that and patient voiced understanding - Time Time Spent with patient: 35 or more minutes
--- NOTE | 2019-02-25 10:35 | PDOC DISCHARGE SUMMARY ---
Impression - Admit/DC Date/PCP Admission Date/Primary Care Provider: 02/23/19 16:22 FAHAD UMANA MD Discharge Date: 02/25/19 - Discharge Diagnosis (1) Anaphylactic reaction Is this a current diagnosis for this admission?: Yes (2) Chronic obstructive pulmonary disease Is this a current diagnosis for this admission?: Yes (3) Hypertension Is this a current diagnosis for this admission?: Yes (4) Pulmonary embolism Is this a current diagnosis for this admission?: Yes (5) Episode of syncope Is this a current diagnosis for this admission?: Yes (6) Lung cancer Is this a current diagnosis for this admission?: Yes (7) Elevated troponin I level Is this a current diagnosis for this admission?: Yes - Additional Information Discharge Diet: Regular Discharge Activity: Activity As Tolerated Referrals: FAHAD UMANA MD [Primary Care Provider] - 03/04/19 10:15 am Home Medications: Albuterol Sulfate [Proair HFA Inhalation Aerosol 8.5 gm MDI] 2 puff IH Q6HP PRN 02/23/19 Albuterol Sulfate [Ventolin 0.083% Neb 2.5 mg/3 mL Ampul] 1 vial NEB RTQ8 02/23/19 Allopurinol [Zyloprim 100 mg Tablet] 100 mg PO DAILY 02/23/19 Atenolol [Tenormin] 25 mg PO DAILY 02/23/19 Atorvastatin Calcium [Lipitor 40 mg Tablet] 40 mg PO QHS 02/23/19 Calcium Carbonate [Calcium] 600 mg PO DAILY 02/23/19 Fenofibrate Nanocrystallized [Tricor 145 mg Tablet] 145 mg PO QHS 02/23/19 Folic Acid [Folvite 1 mg Tablet] 1 mg PO DAILY 02/23/19 Gabapentin [Neurontin 300 mg Capsule] 300 mg PO Q8 02/23/19 Oxycodone HCl [Oxy-Ir 5 mg Tablet] 15 mg PO Q6HP PRN 02/23/19 Oxycodone HCl [Oxycontin] 30 mg PO Q12 02/23/19 Rivaroxaban [Xarelto] 20 mg PO DAILY 02/23/19 Tamsulosin HCl [Flomax] 0.4 mg PO DAILY 02/23/19 Telmisartan/Hydrochlorothiazid [Telmisartan-Hctz 80-12.5 mg Tb] 1 each PO DAILY 02/23/19 Tiotropium Br/Olodaterol HCl [Stiolto Respimat Inhal [place]] 2 puff IH DAILY 02/23/19 History of Present Illiness History of Present Illness: NELDA MORENO is a 68 year old male This is a 68-year-old male with a history of the lung cancer with metastatic disease history of the COPD hypertension's hyperlipidemia history of the pulmonary embolisms basically went to the oncology office today for the Optidiva infusions Patient is got the 1 infusions last times couple of weeks back this is patient's second infusions and after starting the infusions for 5 minutes patient start have anaphylactic reactions Steidel difficulty in breathing and oncology office provide the 10 mg Decadron in appendectomy and supportive treatment and call the EMS and brought to the emergency departments In the emergency department patient initial work-up with the blood work is all stable patient EKG stable cardiac enzyme is indeterminant and patient basically back to the normal initial CT head was also negative When I saw the patient is feeling better no chest pain no short of breath Patient at this point order the MRI of the head According to the oncology no seizures like activities there is no seizures noticed in the emergency department to Hospital Course Hospital Course: This is a 68-year-old male's with a stage IV lung cancers admitting in the hospital for the drug reactions patient is was giving IV Solu-Medrol Pepcid and patient responds very well Underwent further cardiac evaluations due to the elevated troponin with echocardiogram.All stable Patient is otherwise doing well patient is walking the hallway without any problems does not qualify for an oxygen's Patient is discharged home with the stable conditions discussed with the patient and her including the all This report Patient seen by oncology and cardiology Patient is will change the inhaler to tretralgy If covered by the insurance which may help for the patient's COPD symptoms Physical Exam Vital Signs: Temp Pulse Resp BP Pulse Ox 97.3 F 83 12 144/65 H 95 02/25/19 08:56 02/25/19 08:56 02/25/19 08:56 02/25/19 08:56 02/25/19 08:56 Intake & Output 02/24/19 02/25/19 02/26/19 06:59 06:59 06:59 Intake Total 1600 1450 Output Total 325 150 Balance 1275 1300 Weight 75.75 kg 77.3 kg Results Laboratory Results: WBC 7.8 10^3/uL (4.0-10.5) D 02/25/19 04:40 RBC 3.35 10^6/uL (4.35-5.55) L 02/25/19 04:40 Hgb 9.2 g/dL (13.5-17.0) L 02/25/19 04:40 Hct 27.0 % (37.9-51.0) L 02/25/19 04:40 MCV 81 fl (80-97) 02/25/19 04:40 MCH 27.4 pg (27.0-33.4) 02/25/19 04:40 MCHC 33.9 g/dL (32.0-36.0) 02/25/19 04:40 RDW 20.0 % (11.5-14.0) H 02/25/19 04:40 Plt Count 283 10^3/uL (150-450) 02/25/19 04:40 Lymph % (Auto) Not Reportable 02/25/19 04:40 [place] % (Auto) Not Reportable 02/25/19 04:40 Eos % (Auto) Not Reportable 02/25/19 04:40 Baso % (Auto) Not Reportable 02/25/19 04:40 Absolute Neuts (auto) Not Reportable 02/25/19 04:40 Absolute Lymphs (auto) Not Reportable 02/25/19 04:40 Absolute Monos (auto) Not Reportable 02/25/19 04:40 Absolute Eos (auto) Not Reportable 02/25/19 04:40 Absolute Basos (auto) Not Reportable 02/25/19 04:40 Total Counted 100 02/25/19 04:40 Seg Neutrophils % Not Reportable 02/25/19 04:40 Seg Neuts % (Manual) 91 % (42-78) H 02/25/19 04:40 Band Neutrophils % 1 % (3-5) L 02/25/19 04:40 Lymphocytes % (Manual) 6 % (13-45) L 02/25/19 04:40 Monocytes % (Manual) 2 % (3-13) L 02/25/19 04:40 Eosinophils % (Manual) 0 % (0-6) 02/25/19 04:40 Basophils % (Manual) 0 % (0-2) 02/25/19 04:40 Abs Neuts (Manual) 7.2 10^3/uL (1.7-8.2) 02/25/19 04:40 Abs Lymphs (Manual) 0.5 10^3/uL (0.5-4.7) 02/25/19 04:40 Abs Monocytes (Manual) 0.2 10^3/uL (0.1-1.4) 02/25/19 04:40 Absolute Eos (Manual) 0.0 10^3/uL (0.0-0.6) 02/25/19 04:40 Abs Basophils (Manual) 0.0 10^3/uL (0.0-0.2) 02/25/19 04:40 Toxic Granulation 1+ 02/23/19 14:25 Platelet Comment ADEQUATE 02/25/19 04:40 Poikilocytosis 1+ 02/23/19 14:25 Anisocytosis 2+ 02/25/19 04:40 Microcytosis SLIGHT 02/25/19 04:40 Tear Drop Cells 1+ 02/25/19 04:40 Ovalocytes 1+ 02/25/19 04:40 PT 33.0 SEC (11.4-15.4) H 02/23/19 14:25 INR 3.14 02/23/19 14:25 APTT 42.9 SEC (23.5-35.8) H 02/23/19 14:25 VBG pH 7.38 (7.30-7.42) 02/23/19 14:25 VBG pCO2 37.7 mmHg (35-63) 02/23/19 14:25 VBG HCO3 21.7 mmol/L (20-32) 02/23/19 14:25 VBG Base Excess -3.1 mmol/L 02/23/19 14:25 Sodium 138.9 mmol/L (137-145) 02/25/19 04:40 Potassium 4.9 mmol/L (3.6-5.0) 02/25/19 04:40 Chloride 107 mmol/L (98-107) 02/25/19 04:40 Carbon Dioxide 25 mmol/L (22-30) 02/25/19 04:40 Anion Gap 7 (5-19) 02/25/19 04:40 BUN 32 mg/dL (7-20) H 02/25/19 04:40 Creatinine 1.18 mg/dL (0.52-1.25) 02/25/19 04:40 Est GFR ( Amer) > 60 (>60) 02/25/19 04:40 Est GFR (MDRD) Non-Af > 60 (>60) 02/25/19 04:40 Glucose 109 mg/dL (75-110) 02/25/19 04:40 Calcium 9.0 mg/dL (8.4-10.2) 02/25/19 04:40 Magnesium 2.1 mg/dL (1.6-2.3) 02/25/19 04:40 Total Bilirubin 0.2 mg/dL (0.2-1.3) 02/24/19 05:29 Direct Bilirubin 0.2 mg/dL (0.0-0.4) 02/24/19 05:29 Neonat Total Bilirubin Not Reportable 02/24/19 05:29 Neonat Direct Bilirubin Not Reportable 02/24/19 05:29 Neonat Indirect Bili Not Reportable 02/24/19 05:29 AST 17 U/L (17-59) 02/24/19 05:29 ALT 7 U/L (<50) 02/24/19 05:29 Alkaline Phosphatase 64 U/L (38-126) 02/24/19 05:29 Creatine Kinase 97 U/L (55-170) 02/24/19 05:29 CK-MB (CK-2) 1.12 ng/mL (<4.55) 02/24/19 05:29 Troponin I 0.100 ng/mL 02/24/19 05:29 Total Protein 6.6 g/dL (6.3-8.2) 02/24/19 05:29 Albumin 3.3 g/dL (3.5-5.0) L 02/24/19 05:29 Urine Color YELLOW 02/23/19 22:06 Urine Appearance CLEAR 02/23/19 22:06 Urine pH 6.0 (5.0-9.0) 02/23/19 22:06 Ur Specific [place] 1.013 02/23/19 22:06 Urine Protein NEGATIVE mg/dL (NEGATIVE) 02/23/19 22:06 Urine Glucose (UA) NEGATIVE mg/dL (NEGATIVE) 02/23/19 22:06 Urine Ketones NEGATIVE mg/dL (NEGATIVE) 02/23/19 22:06 Urine Blood NEGATIVE (NEGATIVE) 02/23/19 22:06 Urine Nitrite NEGATIVE (NEGATIVE) 02/23/19 22:06 Urine Nitrite (Reflex) Cancelled 02/23/19 22:06 Urine Bilirubin NEGATIVE (NEGATIVE) 02/23/19 22:06 Urine Urobilinogen NEGATIVE mg/dL (<2.0) 02/23/19 22:06 Ur Leukocyte Esterase NEGATIVE (NEGATIVE) 02/23/19 22:06 Leukocyte Esterase Rfl Cancelled 02/23/19 22:06 Urine WBC (Auto) 1 /HPF 02/23/19 22:06 U Hyaline Cast (Auto) 1 /LPF 02/23/19 22:06 Urine WBC (Reflex) Cancelled 02/23/19 22:06 Urine Mucus (Auto) /LPF 02/23/19 22:06 Urine Ascorbic Acid NEGATIVE (NEGATIVE) 02/23/19 22:06 Urine Opiates Screen NEGATIVE 02/23/19 22:06 Urine Methadone Screen NEGATIVE 02/23/19 22:06 Ur Barbiturates Screen NEGATIVE 02/23/19 22:06 Ur Phencyclidine Scrn NEGATIVE 02/23/19 22:06 Ur Amphetamines Screen NEGATIVE 02/23/19 22:06 U Benzodiazepines Scrn NEGATIVE 02/23/19 22:06 Urine Cocaine Screen NEGATIVE 02/23/19 22:06 U Marijuana (THC) Screen NEGATIVE 02/23/19 22:06 02/23/19 02/23/19 02/23/19 14:25 17:48 22:18 CK-MB (CK-2) 1.38 1.46 Troponin I 0.059 0.171 0.154 02/24/19 05:29 CK-MB (CK-2) 1.12 Troponin I 0.100 Impressions: Chest X-Ray 02/23/19 13:42 IMPRESSION: Chronic lung changes with no acute cardiopulmonary finding. Head CT 02/23/19 13:42 IMPRESSION: CHRONIC MICROVASCULAR ISCHEMIA. NO ACUTE IMAGING FINDINGS IN THE BRAIN. EVIDENCE OF ACUTE STROKE: NO. Head MRI 02/23/19 16:12 IMPRESSION: ATROPHY AND CHRONIC MICRO-VASCULAR ISCHEMIC CHANGES. NO ENHANCING LESIONS. NO ACUTE FINDINGS. EVIDENCE OF ACUTE STROKE: NO. Plan Time Spent: Greater than 30 Minutes - Follow-up with oncology as scheduled In office in 1 week Stroke Is this a Stroke Patient?: No Acute Heart Failure - Is this a Heart Failure Patient?: No
--- NOTE | 2019-02-25 12:59 | PDOC PROGRESS REPORT ---
Subjective Progress Note for:: 02/25/19 Subjective:: Patient looks and feels better. No complaints today. Plans on going home today. Reason For Visit: SYNCOPE EPISODE Physical Exam Vital Signs: Temp Pulse Resp BP Pulse Ox 97.3 F 83 12 144/65 H 95 02/25/19 08:56 02/25/19 08:56 02/25/19 08:56 02/25/19 08:56 02/25/19 08:56 Intake & Output 02/24/19 02/25/19 02/26/19 06:59 06:59 06:59 Intake Total 1600 1450 Output Total 325 150 Balance 1275 1300 Weight 75.75 kg 77.3 kg General appearance: PRESENT: no acute distress, cooperative Head exam: PRESENT: atraumatic, normocephalic Eye exam: PRESENT: EOMI Respiratory exam: PRESENT: crackles, decreased breath sounds, symmetrical, unla bored Cardiovascular exam: PRESENT: RRR, +S1, +S2 GI/Abdominal exam: PRESENT: soft Rectal exam: PRESENT: deferred Neurological exam: PRESENT: alert, awake, oriented to person, oriented to place Psychiatric exam: PRESENT: appropriate affect Skin exam: PRESENT: intact, normal color Results Laboratory Results: 02/25/19 04:40 02/25/19 04:40 02/25/19 02/25/19 04:40 04:40 WBC 7.8 D RBC 3.35 L Hgb 9.2 L Hct 27.0 L MCV 81 MCH 27.4 MCHC 33.9 RDW 20.0 H Plt Count 283 Seg Neutrophils % Not Reportable Sodium 138.9 Potassium 4.9 Chloride 107 Carbon Dioxide 25 Anion Gap 7 BUN 32 H Creatinine 1.18 Est GFR ( Amer) > 60 Glucose 109 Calcium 9.0 Magnesium 2.1 02/23/19 17:48 Blood Blood Culture (PCR) - Final 02/23/19 22:06 Clean Catch Midstream Urine Culture - Final NO GROWTH 2 DAYS 02/23/19 02/23/19 02/23/19 14:25 14:25 17:48 Creatine Kinase 92 CK-MB (CK-2) 1.38 Troponin I 0.059 0.171 02/23/19 02/23/19 02/24/19 22:18 22:18 05:29 Creatine Kinase 103 97 CK-MB (CK-2) 1.46 Troponin I 0.154 02/24/19 05:29 Creatine Kinase CK-MB (CK-2) 1.12 Troponin I 0.100 Impressions: Chest X-Ray 02/23/19 13:42 IMPRESSION: Chronic lung changes with no acute cardiopulmonary finding. Head CT 02/23/19 13:42 IMPRESSION: CHRONIC MICROVASCULAR ISCHEMIA. NO ACUTE IMAGING FINDINGS IN THE BRAIN. EVIDENCE OF ACUTE STROKE: NO. Head MRI 02/23/19 16:12 IMPRESSION: ATROPHY AND CHRONIC MICRO-VASCULAR ISCHEMIC CHANGES. NO ENHANCING LESIONS. NO ACUTE FINDINGS. EVIDENCE OF ACUTE STROKE: NO. Assessment & Plan - Diagnosis (1) Episode of syncope Qualifiers: Syncope type: unspecified Qualified Code(s): R55 - Syncope and collapse Is this a current diagnosis for this admission?: Yes Plan: Echocardiogram showed preserved ejection fraction and no significant valve lesion. There is no pericardial effusion. Unlikely cardiac cause of syncope. Syncope probably secondary to vasodilatation due to allergic/anaphylactic response to drug (2) Anaphylactic reaction Qualifiers: Encounter type: initial encounter Qualified Code(s): T78.2XXA - Anaphylactic shock, unspecified, initial encounter Is this a current diagnosis for this admission?: Yes Plan: This has resolved. (3) Lung cancer Qualifiers: Laterality: right Lung location: overlapping sites Qualified Code(s): C34.81 - Malignant neoplasm of overlapping sites of right bronchus and lung Is this a current diagnosis for this admission?: Yes Plan: Plan per oncology. Outpatient follow-up was recommended. - Notes Notes: We will arrange for outpatient follow-up for continued care.
== END 2019-02-25 13:05 | disposition home or self-care (01) | DRG 916 ==
LOC: ER 13:15 → EH 16:22 → 3N 02-24 17:27
PROVIDERS: ADMIT Family Medicine; ATTEND Family Medicine
DX: T88.6XXA Anaphylactic reaction due to adverse effect of correct drug or medicament properly administered, initial encounter (principal); I27.82 Chronic pulmonary embolism; C34.81 Malignant neoplasm of overlapping sites of right bronchus and lung; C79.9 Secondary malignant neoplasm of unspecified site; T46.7X5A Adverse effect of peripheral vasodilators, initial encounter; Y84.8 Other medical procedures as the cause of abnormal reaction of the patient, or of later complication, without mention of misadventure at the time of the procedure; Y92.9 Unspecified place or not applicable; J42 Unspecified chronic bronchitis; I10 Essential (primary) hypertension; E78.5 Hyperlipidemia, unspecified; E78.00 Pure hypercholesterolemia, unspecified; Z79.899 Other long term (current) drug therapy; Z87.891 Personal history of nicotine dependence; Z79.891 Long term (current) use of opiate analgesic; Z86.73 Personal history of transient ischemic attack (TIA), and cerebral infarction without residual deficits
CPT/HCPCS: 36415; 70450; 70553; 71045; 80048; 80053; 80307; 81001; 82550; 82553; 82803; 83735; 84484; 85025; 85610; 85730; 87040; 87077; 87086; 87150; 93005; 93010; 93306; 94640; 96360; 99285; A9576; J1642; J2920; J7030; J7512; J7620

== ENCOUNTER → 2019-04-15 | Outpatient (CLI) | payer MEDICARE, OTHER ==
--- NOTE | 2019-04-15 12:31 | RADIOLOGY REPORT (SQ) ---
EXAM DESCRIPTION: CT CHEST WITH COMPLETED DATE/TIME: 04/15/2019 8:39 am REASON FOR STUDY: C34.32 MALIGNANT NEOPLASM OF LOWER LOBE, LEFT BRONCHUS OR LUNG C34.32 MALIGNANT N EOPLASM OF LOWER LOBE, LEFT BRONCHUS OR SAURAV COMPARISON: 12/04/2018 TECHNIQUE: CT scan of the chest performed using helical scanning technique with dynamic intravenous contrast injection. Images reviewed with lung, soft tissue and bone windows. Reconstructed coronal and sagittal MPR and MIP images reviewed. All images stored on PACS. All CT scanners at this facility use dose modulation, iterative reconstruction, and/or weight based d osing when appropriate to reduce radiation dose to as low as reasonably achievable (ALARA). [facility]: Dose Right [facility]: CareDose [facility]: Dose Right [facility]: Teradose 4D [facility]: BitMethod CONTRAST TYPE AND DOSE: 94 mL Omnipaque 350- low osmolar. RENAL FUNCTION: Creatinine 1.2 RADIATION DOSE: . LIMITATIONS: None. FINDINGS: LUNGS AND PLEURA: Lesion in the left lower lobe measures 6 x 8.5 mm, showing significant i mprovement. No new pulmonary nodules are present. Mild centrilobular pulmonary emphysema in the upp er lobes. No pleural effusion. HILAR AND MEDIASTINAL STRUCTURES: No identified masses or abnormal nodes. HEART AND VASCULAR STRUCTURES: No aneurysm or dissection. No central pulmonary emboli. No pericardi al effusion. HARDWARE: None in the chest. UPPER ABDOMEN: No significant findings. Limited exam. THYROID AND OTHER SOFT TISSUES: No masses. No adenopathy. BONES: Stable sclerotic lesion at T7. OTHER: No other significant finding. IMPRESSION: Left lower lobe lesion shows significant improvement as described above. Stable T7 lesi on. TECHNICAL DOCUMENTATION: JOB ID: [id number] Quality ID # [id number]: Final reports with documentation of one or more dose reduction techniques (e.g., Au tomated exposure control, adjustment of the mA and/or kV according to patient size, use of iterative reconstruction technique) 2010 [employer]- All Rights Reserved Reading location - IP/workstation name: [email or web address]
--- NOTE | 2019-04-15 12:36 | RADIOLOGY REPORT (SQ) ---
EXAM DESCRIPTION: CT A 12/04/2018 BD/PELVIS WITH IV ORAL COMPLETED DATE/TIME: 04/15/2019 8:39 am REASON FOR STUDY: C34.32 MALIGNANT NEOPLASM OF LOWER LOBE, LEFT BRONCHUS OR LUNG C34.32 MALIGNANT N EOPLASM OF LOWER LOBE, LEFT BRONCHUS OR SAURAV COMPARISON: None. TECHNIQUE: CT scan of the abdomen and pelvis performed using helical scanning technique with dynamic intravenous contrast injection. No oral contrast. Images reviewed with lung, soft tissue, and bone windows. Reconstructed coronal and sagittal MPR images reviewed. Delayed images for evaluation of the urinary system also acquired. All images stored on PACS. All CT scanners at this facility use dose modulation, iterative reconstruction, and/or weight based d osing when appropriate to reduce radiation dose to as low as reasonably achievable (ALARA). [facility]: Dose Right [facility]: CareDose [facility]: Dose Right [facility]: Teradose 4D [facility]: [employer] CONTRAST TYPE AND DOSE: contrast/concentration: Isovue 350.00 mg/ml; Total Contrast Delivered: 94.0 ml; Total Saline Delivered: 71.0 ml RENAL FUNCTION: Creatinine 1.2 RADIATION DOSE: CT Rad equipment meets quality standard of care and radiation dose reduction techniq ues were employed. CTDIvol: 5.7 - 7.3 mGy. DLP: 999 mGy-cm.. LIMITATIONS: None. FINDINGS: LOWER CHEST: See separate report of the CT of the chest. LIVER: Normal size. No masses. No dilated ducts. SPLEEN: Normal size. No focal lesions. PANCREAS: No masses. No significant calcifications. No adjacent inflammation or peripancreatic fluid collections. Pancreatic duct not dilated. GALLBLADDER: No identified stones by CT criteria. No inflammatory changes to suggest cholecystitis. ADRENAL GLANDS: No significant masses or asymmetry. RIGHT KIDNEY AND URETER: No solid masses. No significant calcifications. No hydronephrosis or hyd roureter. LEFT KIDNEY AND URETER: No solid masses. No significant calcifications. No hydronephrosis or hydr oureter. AORTA AND VESSELS: No aneurysm. No dissection. Renal arteries, SMA, celiac without stenosis. RETROPERITONEUM: No retroperitoneal adenopathy, hemorrhage or masses. BOWEL AND PERITONEAL CAVITY: No masses or inflammatory changes. No free fluid or peritoneal masses. APPENDIX: Normal. PELVIS: No mass. No free fluid. Normal bladder. ABDOMINAL WALL: No masses. No hernias. BONES: Stable mixed sclerotic lesions in the pancho and in the left sacrum. OTHER: No other significant finding. IMPRESSION: Stable appearance of the abdomen and pelvis. Stable osseous lesions as described. TECHNICAL DOCUMENTATION: JOB ID: [id number] Quality ID # [id number]: Final reports with documentation of one or more dose reduction techniques (e.g., Au tomated exposure control, adjustment of the mA and/or kV according to patient size, use of iterative reconstruction technique) 2010 [employer]- All Rights Reserved Reading location - IP/workstation name: [email or web address]
== END ==
LOC: RAD 08:07
PROVIDERS: ATTEND Internal Medicine
DX: C34.32 Malignant neoplasm of lower lobe, left bronchus or lung (principal)
CPT/HCPCS: 71260; 74177; 82565

== ENCOUNTER 2019-04-29 07:44 | Day surgery (SDC) | payer MEDICARE, OTHER ==
[2019-04-29] MEDS ORDERED: ATENOLOL 50 MG TABLET PO ONE (08:45)
[2019-04-29 09:04] LABS: INTERNATIONAL RATION (INR) 1.09; PROTHROMBIN TIME 14.1 SEC (11.4-15.4)
[2019-04-29 09:05] LABS: PARTIAL THROMBOPLASTIN TIME 28.7 SEC (23.5-35.8)
[2019-04-29] MEDS ORDERED: PROPOFOL INJ 200 MG/20 ML VIAL IV ONE (10:03)
[2019-04-29] MEDS ORDERED: OXYCODONE-ACETAMINOPHEN 5-325 MG TABLET PO PRN ×2 (10:33)
[2019-04-29] MEDS ORDERED: MEPERIDINE HCL/PF INJ 25 MG/1 ML DISP.SYRIN IV PRN (10:33)
[2019-04-29] MEDS ORDERED: PROMETHAZINE HCL INJ 25 MG/1 ML VIAL IV PRN ×2 (10:33)
[2019-04-29] MEDS ORDERED: DIPHENHYDRAMINE HCL 50 MG/ML VIAL IV PRN (10:33)
[2019-04-29] MEDS ORDERED: FENTANYL CITRATE INJ/PF 100 MCG/2 ML AMPUL IV PRN ×3 (10:33)
--- NOTE | 2019-04-29 10:54 | Operative Report ---
Operative Report DATE OF SURGERY: 04/29/19 Operative Report: The risk, benefits and alternatives of the procedure including the risk of bleeding, perforation requiring surgery have been explained to the patient in detail and informed consent has been obtained. Patient is placed in a left, lateral decubital position. Timeout was called. Propofol medication is administered. Rectal examination is done which did not reveal any masses, tears or fissures. An Olympus videoscope was introduced into the patient's rectum. Scope was then carefully advanced all the way to the cecum. Cecum was identified by the usual anatomical landmarks including the ileocecal valve as well as the appendiceal office. Photodocumentation is obtained. Scope was then sequentially pulled back via the various segments of the colon including the ascending colon, hepatic flexure, transverse colon, splenic flexure, descending colon and finally into the rectosigmoid portions of the colon. Retroflexion maneuvers performed. The risks benefits and alternatives of the procedure explained to the patient in detail and informed consent is obtained.A GIF Olympus video scope was inserted into the patient's mouth and hypopharynx ,the esophagus is identified intubated and insufflated, the scope was then advanced through the esophagus stomach and duodenum ,retroflexion maneuver is done, the esophagus stomach and first and second portions of the duodenum examined PREOPERATIVE DIAGNOSIS: Iron deficiency anemia POSTOPERATIVE DIAGNOSIS: Joya's esophagus versus esophagitis status post biopsy. Hiatal hernia. Gastritis status post biopsy. No bleeding noted in the upper GI tract. On colonoscopy findings include diverticulosis without any evidence of diverticulitis. Internal hemorrhoids. Random biopsies taken right side of colon. No bleeding noted as well OPERATION: Colonoscopy with biopsy. EGD with biopsy SURGEON: NANCY KATHLEEN ANESTHESIA: LMAC TISSUE REMOVED OR ALTERED: As noted above. COMPLICATIONS: None. ESTIMATED BLOOD LOSS: None. INTRAOPERATIVE FINDINGS: As noted above. PROCEDURE: Patient tolerated the procedure well. No immediate postprocedure complications are noted. Patient is discharged in good condition. Discharge date 04/29/2019. Discharge diet: Regular. Discharge activity: Regular. 2 to 3-week follow-up to discuss findings. Patient is instructed call the office or proceed to the emergency room should there be any further problems or questions. Wait on the pathology.
[2019-04-29 11:51] VITALS: BP 129/65
[2019-04-29] MEDS ORDERED: LIDOCAINE 2% INJ-PF (20 MG/ML) 2 ML AMPUL ONE (14:37)
== END 2019-04-29 11:50 | disposition home or self-care (01) ==
LOC: OROUT 07:44
PROVIDERS: ATTEND Internal Medicine Gastroenterology
DX: K20.9 Esophagitis, unspecified (principal); K44.9 Diaphragmatic hernia without obstruction or gangrene; K57.30 Diverticulosis of large intestine without perforation or abscess without bleeding; K64.8 Other hemorrhoids; K29.50 Unspecified chronic gastritis without bleeding; D50.9 Iron deficiency anemia, unspecified; C34.90 Malignant neoplasm of unspecified part of unspecified bronchus or lung; Z79.01 Long term (current) use of anticoagulants; J44.9 Chronic obstructive pulmonary disease, unspecified; E11.9 Type 2 diabetes mellitus without complications; Z87.891 Personal history of nicotine dependence
CPT/HCPCS: 43239; 45380; 36415; 84132; 85610; 85730; 88342 ×2; 88305 ×2; 00813; A9270; J2704; J3490; 813

== ENCOUNTER → 2019-06-24 | Outpatient (CLI) | payer MEDICARE, OTHER ==
--- NOTE | 2019-06-24 09:21 | RADIOLOGY REPORT (SQ) ---
EXAM DESCRIPTION: CT CHEST WITH IMAGES COMPLETED DATE/TIME: 06/24/2019 8:56 am REASON FOR STUDY: C34.12 MALIGNANT NEOPLASM OF UPPER LOBE, LEFT BRONCHUS OR LUNG C34.12 MALIGNANT N EOPLASM OF UPPER LOBE, LEFT BRONCHUS OR SAURAV COMPARISON: 04/15/2019 TECHNIQUE: CT scan of the chest performed using helical scanning technique with dynamic intravenous contrast injection. Images reviewed with lung, soft tissue and bone windows. Reconstructed coronal and sagittal MPR and MIP images reviewed. All images stored on PACS. All CT scanners at this facility use dose modulation, iterative reconstruction, and/or weight based d osing when appropriate to reduce radiation dose to as low as reasonably achievable (ALARA). [facility]: Dose Right [facility]: CareDose [facility]: Dose Right [facility]: Teradose 4D [facility]: [employer] CONTRAST TYPE AND DOSE: See abdomen RENAL FUNCTION: Creatinine 1.2 RADIATION DOSE: CT Rad equipment meets quality standard of care and radiation dose reduction techniq ues were employed. CTDIvol: 8.5 - 8.6 mGy. DLP: 1267 mGy-cm. . LIMITATIONS: None. FINDINGS: LUNGS AND PLEURA: Grossly stable left lower lobe nodule measuring 8.2 x 6.0 mm (series 6, image 64). No new pulmonary nodules or masses. No pleural effusion. No focal airspace disease. No pneumothorax. Fiducial markers within the left lung, stable. HILAR AND MEDIASTINAL STRUCTURES: No identified masses or abnormal nodes. HEART AND VASCULAR STRUCTURES: No aneurysm or dissection. No central pulmonary emboli. No pericardi al effusion. Scattered coronary atherosclerosis. HARDWARE: Fiducial markers in the left lung. Right IJ based chest port with catheter tip at cavoatri al junction. UPPER ABDOMEN: See separate report of the CT of the abdomen. THYROID AND OTHER SOFT TISSUES: No masses. No adenopathy. BONES: No acute bony abnormality. No discrete lytic lesions. Unchanged ill-defined sclerotic appear ance of the lateral 4th rib. Stable T7 mixed lytic and sclerotic lesion. OTHER: No other significant finding. IMPRESSION: 1. Stable left lower lobe pulmonary nodule as above. Stable T7 and left lateral 4th ri b sclerotic lesions. 2. No evidence of new metastatic disease within the chest. TECHNICAL DOCUMENTATION: JOB ID: [id number] Quality ID # 436: Final reports with documentation of one or more dose reduction techniques (e.g., Au tomated exposure control, adjustment of the mA and/or kV according to patient size, use of iterative reconstruction technique) 2010 [employer]- All Rights Reserved Reading location - IP/workstation name: [email or web address]
--- NOTE | 2019-06-24 09:54 | RADIOLOGY REPORT (SQ) ---
EXAM DESCRIPTION: CT ABD/PELVIS WITH IV ONLY IMAGES COMPLETED DATE/TIME: 06/24/2019 8:56 am REASON FOR STUDY: C34.12 MALIGNANT NEOPLASM OF UPPER LOBE, LEFT BRONCHUS OR LUNG C34.12 MALIGNANT N EOPLASM OF UPPER LOBE, LEFT BRONCHUS OR SAURAV COMPARISON: 12/04/2018 TECHNIQUE: CT scan of the abdomen and pelvis performed using helical scanning technique with dynamic intravenous contrast injection. No oral contrast. Images reviewed with lung, soft tissue, and bone windows. Reconstructed coronal and sagittal MPR images reviewed. Delayed images for evaluation of the urinary system also acquired. All images stored on PACS. All CT scanners at this facility use dose modulation, iterative reconstruction, and/or weight based d osing when appropriate to reduce radiation dose to as low as reasonably achievable (ALARA). [facility]: Dose Right [facility]: CareDose [facility]: Dose Right [facility]: Teradose 4D [facility]: [employer] CONTRAST TYPE AND DOSE: contrast/concentration: Isovue 350.00 mg/ml; Total Contrast Delivered: 94.0 ml; Total Saline Delivered: 71.0 ml RENAL FUNCTION: Creatinine 1.2 RADIATION DOSE: . LIMITATIONS: None. FINDINGS: LOWER CHEST: See separate report of the CT of the chest. LIVER: Normal size. No masses. No dilated ducts. SPLEEN: Normal size. No focal lesions. PANCREAS: No masses. No significant calcifications. No adjacent inflammation or peripancreatic fluid collections. Pancreatic duct not dilated. GALLBLADDER: No identified stones by CT criteria. No inflammatory changes to suggest cholecystitis. ADRENAL GLANDS: No significant masses or asymmetry. RIGHT KIDNEY AND URETER: No solid masses. Stable cortical cyst. No significant calcifications. N o hydronephrosis or hydroureter. LEFT KIDNEY AND URETER: No solid masses. No significant calcifications. No hydronephrosis or hydr oureter. AORTA AND VESSELS: Aortoiliac atherosclerosis without aneurysm. No dissection. Renal arteries, SMA, c eliac without stenosis. RETROPERITONEUM: No retroperitoneal adenopathy, hemorrhage or masses. BOWEL AND PERITONEAL CAVITY: No masses or inflammatory changes. No free fluid or peritoneal masses. APPENDIX: Normal. PELVIS: No mass. No lymphadenopathy. Mild circumferential bladder wall thickening. Prostatomegaly measuring 4.6 cm transversely. ABDOMINAL WALL: No masses. Small fat containing left inguinal hernia. BONES: No acute bony abnormality. Unchanged sclerotic lesions within the bilateral ilium and sacrum. No new discrete lytic or blastic osseous lesions. Lower lumbar spondylosis and facet arthropathy. OTHER: No other significant finding. IMPRESSION: 1. No evidence of new metastatic disease within the abdomen or pelvis. 2. Stable mixed sclerotic lesions within the pelvis. 3. Mild circumferential bladder wall thickening possibly related to chronic outlet obstruction or cy stitis. Recommend correlation with urinalysis. 4. No other evidence of acute intra-abdominal/pelvic process. TECHNICAL DOCUMENTATION: JOB ID: [id number] Quality ID # [id number]: Final reports with documentation of one or more dose reduction techniques (e.g., Au tomated exposure control, adjustment of the mA and/or kV according to patient size, use of iterative reconstruction technique) 2010 [employer]- All Rights Reserved Reading location - IP/workstation name: [email or web address]
== END ==
LOC: RAD 08:16
PROVIDERS: ATTEND Physician Assistant Medical
DX: C34.12 Malignant neoplasm of upper lobe, left bronchus or lung (principal)
CPT/HCPCS: 71260; 74177; 82565

== ENCOUNTER 2019-10-08 08:27 | Day surgery (SDC) | payer MEDICARE, OTHER ==
[~2019-10-08 08:27] MED LIST changes: -CEFTRIAXONE 2 GM/D5W RTU 2 GM/50 ML RTUPB IV PRN; +CHONDR SU A NA/HYALUR INTRAOC KIT (SURGICARE) ONE; +EPINEPHRINE INJ/PF 1 MG/1 ML AMPULE ONE; +KETOROLAC TROMETHAMINE 0.45% 4 DROP/0.4 ML DROPERETTE OD PRN; +LIDOCAINE 1%/PHENYLEPHRINE 1.5% 0.8 ML SYRINGE ONE; -NORMAL SALINE 250 ML IV PRN
[2019-10-08] MEDS: BESIFLOXACIN HCL 0.6% OPH SUSP 5 ML BOTTLE OD PRN ×4 (09:15→10:10)
[2019-10-08] MEDS: CYCLOPENTOLATE 0.2%/PHENYLEPHRINE 1% OPH SOLN 2 ML OD PRN ×3 (09:15→09:35)
[2019-10-08] MEDS: TROPICAMIDE 1% OPH SOLN 15 ML OD PRN ×3 (09:15→09:35)
[2019-10-08] MEDS: TETRACAINE HCL 0.5% OPH SOLN 4 ML OD PRN ×3 (09:15→09:46)
[2019-10-08] MEDS ORDERED: MIDAZOLAM 2 MG/2 ML INJ ONE (09:44)
[2019-10-08] MEDS: DORZOLAMIDE HCL 2%/TIMOLOL MALEAT 0.5% OPH SOLN 10 ML OD PRN ×2 (10:10)
--- NOTE | 2019-10-08 12:37 | Operative Report ---
Operative Report-[facility] Operative Report: DATE OF SURGERY: 10/08/2019 PREOPERATIVE DIAGNOSIS: Cataract, right eye POSTOPERATIVE DIAGNOSIS: Cataract, right eye OPERATION: Cataract extraction with insertion of an IOL of the right eye. Intraocular Lens Model: [15.0 sn60wf]surgery for difficulty seeing at night secondary to glare from headlights SURGEON: Glenn Ward MD ANESTHESIA: Topical PROCEDURE: After obtaining appropriate consent, the patient's right eye was prepped and draped in a sterile fashion as well as the surgeon in the sterile manner and cataract surgery was started. First a paracentesis blade was used to make a side-port incision. Viscoelastic was used to inflate the anterior chamber. Next a 2.4 mm incision was made with a 2.4 mm blade, clear corneal temporarily. A continuous capsulorrhexis was made using a cystotome and Utrata forceps. Following this hydrodissection was carried out to make the marie fully loose and mobile and it was rotated. Following this, a divide and conquer technique was used to phacoemulsify the marie. The remaining cortex was removed with an irrigation/aspiration. Provisc was instilled into the capsular bag to inflate the bag. The intraocular lens was placed. The remaining viscoelastic material was removed with irrigation/aspiration. Following this, the incision was found to be watertight. Besivance and Cosopt was instilled into the eye and a protective shield was placed over the eye. The patient was reurned to the postoperative recovery in a stable condition.
== END 2019-10-08 10:48 | disposition home or self-care (01) ==
LOC: SC 08:27
PROVIDERS: ATTEND Internal Medicine
DX: H25.813 Combined forms of age-related cataract, bilateral (principal); H31.091 Other chorioretinal scars, right eye; H43.811 Vitreous degeneration, right eye; H44.23 Degenerative myopia, bilateral; E78.00 Pure hypercholesterolemia, unspecified; J44.9 Chronic obstructive pulmonary disease, unspecified; G47.33 Obstructive sleep apnea (adult) (pediatric); Z86.73 Personal history of transient ischemic attack (TIA), and cerebral infarction without residual deficits; Z87.891 Personal history of nicotine dependence; Z79.899 Other long term (current) drug therapy; Z85.118 Personal history of other malignant neoplasm of bronchus and lung
CPT/HCPCS: 66984; 00142; V2632; J2250; J3490 ×3; A9270; J0171; 142

== ENCOUNTER → 2019-10-21 | Outpatient (CLI) | payer MEDICARE, OTHER ==
--- NOTE | 2019-10-21 12:15 | RADIOLOGY REPORT (SQ) ---
EXAM DESCRIPTION: U/S RETROPERITON (RENAL/AORTA) IMAGES COMPLETED DATE/TIME: 10/21/2019 10:01 am REASON FOR STUDY: N18.2 CHRONIC KIDNEY DISEASE, STAGE 2 (MILD) N18.2 CHRONIC KIDNEY DISEASE, STAGE 2 (MILD) COMPARISON: None. TECHNIQUE: Dynamic and static grayscale images acquired of the kidneys and bladder and recorded on P ACS. Additional selected color Doppler and spectral images recorded. LIMITATIONS: None. FINDINGS: RIGHT KIDNEY: Normal size 9.5 cm. Normal echogenicity. 2 cm simple cyst. No solid or marco picious masses. No hydronephrosis. No calcifications. LEFT KIDNEY: Normal size 9 cm. Normal echogenicity. No solid or suspicious masses. No hydronephrosis . No calcifications. BLADDER: The bladder is morphologically normal. Ureteral jets were not seen. OTHER FINDINGS: No other significant finding. IMPRESSION: NORMAL RENAL AND BLADDER ULTRASOUND. TECHNICAL DOCUMENTATION: JOB ID: [id number] 2010 [employer]- All Rights Reserved Reading location - IP/workstation name: [email or web address]
== END ==
LOC: RAD 09:17
PROVIDERS: ATTEND Family Medicine
DX: N18.2 Chronic kidney disease, stage 2 (mild) (principal)
CPT/HCPCS: 76770

== ENCOUNTER → 2019-10-28 | Outpatient (CLI) | payer MEDICARE, OTHER ==
--- NOTE | 2019-10-28 16:24 | RADIOLOGY REPORT (SQ) ---
EXAM DESCRIPTION: MRI THORACIC SPINE COMBO IMAGES COMPLETED DATE/TIME: 10/28/2019 8:28 am REASON FOR STUDY: LUNG CANCER C34.32 MALIGNANT NEOPLASM OF LOWER LOBE, LEFT BRONCHUS OR SAURAV COMPARISON: None. TECHNIQUE: Sagittal and Axial imaging includes T1, T2, STIR and gradient echo sequences. T1 post ga dolinium sequences. CONTRAST TYPE AND DOSE: 15 mL Prohance. RENAL FUNCTION: Not indicated. ACR Type II contrast agent associated with few, if any, unconfounded cases of NSF LIMITATIONS: Motion artifact. FINDINGS: Most significant finding is a metastatic lesion involving T7 extending into the left pedic le. Expansile component to left of midline contacts the cord with mild mass effect. There is a path ologic fracture without significant height loss or retropulsion. Remaining levels are unremarkable. Cord signal is normal. 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 Pathologic fracture without significant height loss or retropulsion. TECHNICAL DOCUMENTATION: JOB ID: [id number] 2010 [employer]- All Rights Reserved Reading location - IP/workstation name: [email or web address]
--- NOTE | 2019-10-28 16:28 | RADIOLOGY REPORT (SQ) ---
EXAM DESCRIPTION: MRI LUMBAR SPINE COMBO IMAGES COMPLETED DATE/TIME: 10/28/2019 8:28 am REASON FOR STUDY: LUNG CANCER C34.32 MALIGNANT NEOPLASM OF LOWER LOBE, LEFT BRONCHUS OR SAURAV COMPARISON: None. TECHNIQUE: Sagittal and Axial imaging includes T1, T1 post gadolinium, T2, STIR and gradient echo se quences. Coronal T2/HASTE imaging. CONTRAST TYPE AND DOSE: 15 mL Prohance. RENAL FUNCTION: Not indicated. ACR Type II contrast agent associated with few, if any, unconfounded cases of NSF LIMITATIONS: None. FINDINGS: There is a hemangioma in the body of L 2. No evidence of bone metastasis. No significant spinal stenosis. Facet arthropathy in the lower lumbar spine. No high-grade neural foraminal steno sis. Cord signal is normal. Marrow signal alteration consistent with known metastatic lesions in th e ilium bilaterally. IMPRESSION: No evidence of metastatic disease in the lumbar spine. TECHNICAL DOCUMENTATION: JOB ID: [id number] 2010 [employer]- All Rights Reserved Reading location - IP/workstation name: [email or web address]
== END ==
LOC: RAD 07:17
PROVIDERS: ATTEND Internal Medicine
DX: C34.32 Malignant neoplasm of lower lobe, left bronchus or lung (principal)
CPT/HCPCS: 82565; 72157; 72158; A9576

== ENCOUNTER 2019-11-05 08:08 | Day surgery (SDC) | payer MEDICARE, OTHER ==
[~2019-11-05 08:08] MED LIST changes: +DORZOLAMIDE HCL 2%/TIMOLOL MALEAT 0.5% OPH SOLN 10 ML OS PRN; +FENTANYL CITRATE INJ/PF 100 MCG/2 ML AMPUL ONE; -KETOROLAC TROMETHAMINE 0.45% 4 DROP/0.4 ML DROPERETTE OD PRN; +KETOROLAC TROMETHAMINE 0.45% 4 DROP/0.4 ML DROPERETTE OS PRN; +MIDAZOLAM 2 MG/2 ML INJ ONE; +ONDANSETRON HCL INJ/PF 4 MG/2 ML SDV ONE; +PREDNISOLONE ACETATE 1% OPH SUSP 5 ML OS PRN
[2019-11-05] MEDS: TETRACAINE HCL 0.5% OPH SOLN 4 ML OS PRN ×3 (08:58→09:28)
[2019-11-05] MEDS: TROPICAMIDE 1% OPH SOLN 15 ML OS PRN ×3 (08:58→09:06)
[2019-11-05] MEDS: CYCLOPENTOLATE 0.2%/PHENYLEPHRINE 1% OPH SOLN 2 ML OS PRN ×3 (08:58→09:06)
[2019-11-05] MEDS: BESIFLOXACIN HCL 0.6% OPH SUSP 5 ML BOTTLE OS PRN ×3 (08:59→09:53)
--- NOTE | 2019-11-05 13:41 | Operative Report ---
Operative Report-[facility] Operative Report: DATE OF SURGERY: 11/05/2019 PREOPERATIVE DIAGNOSIS: Cataracts, left eye POSTOPERATIVE DIAGNOSIS: Cataract, left eye OPERATION: Cataract extraction with insertion of an IOL of the left eye. Intraocular Lens Model: [13.0 diopter SN 60 WF] Patient underwent surgery for difficulty seeing the golf ball and medicine bottles SURGEON: Glenn Ward MD ANESTHESIA: Topical PROCEDURE: After obtaining appropriate consent, the patient's left eye was prepped and draped in a sterile fashion as well as the surgeon in the sterile manner and cataract surgery was started. First a paracentesis blade was used to make a side-port incision. Viscoelastic was used to inflate the anterior chamber. Next a 2.4 mm incision was made with a 2.4 mm blade, clear corneal temporarily. A continuous capsulorrhexis was made using a cystotome and Utrata forceps. Following this hydrodissection was carried out to make the lens fully loose and mobile and it was rotated 90 degrees. Following this, a divide and conquer technique was used to phacoemulsify the lens. The remaining cortex was removed with an irrigation/aspiration. Provisc was instilled into the capsular bag to inflate the bag.The intraocular lens was placed. The remaining viscoelastic material was removed with irrigation/aspiration. Following this, the incision was found to be watertight. Besivance and Cosopt was instilled into the eye and a protective shield was placed over the eye. The patient was returned to the postoperative recovery in a stable condition.
== END 2019-11-05 10:33 ==
LOC: SC 08:08
PROVIDERS: ATTEND Internal Medicine
DX: H25.812 Combined forms of age-related cataract, left eye (principal); Z96.1 Presence of intraocular lens; E78.00 Pure hypercholesterolemia, unspecified; Z86.73 Personal history of transient ischemic attack (TIA), and cerebral infarction without residual deficits; Z85.118 Personal history of other malignant neoplasm of bronchus and lung; J44.9 Chronic obstructive pulmonary disease, unspecified; Z82.49 Family history of ischemic heart disease and other diseases of the circulatory system; Z82.3 Family history of stroke; I10 Essential (primary) hypertension; D64.9 Anemia, unspecified; F17.210 Nicotine dependence, cigarettes, uncomplicated; Z92.21 Personal history of antineoplastic chemotherapy
CPT/HCPCS: 66984; V2632; J2250; J3490 ×3; A9270; J0171; J2405; 142; J3010

== ENCOUNTER → 2019-11-30 | Day surgery (SDC) | payer MEDICARE, OTHER ==
[~2019-11-30] MED LIST changes: -CHONDR SU A NA/HYALUR INTRAOC KIT (SURGICARE) ONE; -DORZOLAMIDE HCL 2%/TIMOLOL MALEAT 0.5% OPH SOLN 10 ML OS PRN; -EPINEPHRINE INJ/PF 1 MG/1 ML AMPULE ONE; -FENTANYL CITRATE INJ/PF 100 MCG/2 ML AMPUL ONE; -KETOROLAC TROMETHAMINE 0.45% 4 DROP/0.4 ML DROPERETTE OS PRN; -LIDOCAINE 1%/PHENYLEPHRINE 1.5% 0.8 ML SYRINGE ONE; -MIDAZOLAM 2 MG/2 ML INJ ONE; -ONDANSETRON HCL INJ/PF 4 MG/2 ML SDV ONE; -PREDNISOLONE ACETATE 1% OPH SUSP 5 ML OS PRN; +PROPOFOL INJ 200 MG/20 ML VIAL IV ONE
--- NOTE | 2019-11-30 08:58 | Operative Report ---
Operative Report DATE OF SURGERY: 11/30/19 Operative Report: The risks benefits and alternatives of the procedure explained to the patient in detail and informed consent is obtained.A GIF Olympus video scope was inserted into the patient's mouth and hypopharynx, the esophagus is identified intubated and insufflated, the scope was then advanced through the esophagus stomach and duodenum, retroflexion maneuver is done, the esophagus stomach and first and second portions of the duodenum examined PREOPERATIVE DIAGNOSIS: Epigastric pain POSTOPERATIVE DIAGNOSIS: Esophageal ulcer in the mid esophagus. 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 Small hiatal hernia. Gastritis status post biopsy. Duodenitis status post biopsy OPERATION: EGD with biopsy SURGEON: NANCY KATHLEEN ANESTHESIA: LMAC TISSUE REMOVED OR ALTERED: As noted above. COMPLICATIONS: None. ESTIMATED BLOOD LOSS: None. INTRAOPERATIVE FINDINGS: As noted above. PROCEDURE: Patient tolerated the procedure well. No immediate postprocedure complications are noted. Patient is discharged in good condition. Discharge date 11/30/2019. Discharge diet: Regular. Discharge activity: Regular. 2 to 3-week follow-up to discuss findings. Patient is instructed to call the office or proceed to the emergency room should there be any further proximal questions. Wait on the pathology. Follow-up EGD to document healing of the ulcer as well as for ablation of Joya's esophagus.
[2019-11-30 09:31] VITALS: BP 115/58
== END ==
LOC: END 06:58
PROVIDERS: ATTEND Internal Medicine Gastroenterology
DX: K29.50 Unspecified chronic gastritis without bleeding (principal); K29.80 Duodenitis without bleeding; K44.9 Diaphragmatic hernia without obstruction or gangrene; K22.10 Ulcer of esophagus without bleeding; I10 Essential (primary) hypertension; G47.33 Obstructive sleep apnea (adult) (pediatric); K21.9 Gastro-esophageal reflux disease without esophagitis; C80.1 Malignant (primary) neoplasm, unspecified; Z79.899 Other long term (current) drug therapy; Z79.52 Long term (current) use of systemic steroids; Z79.01 Long term (current) use of anticoagulants; Z03.818 Encounter for observation for suspected exposure to other biological agents ruled out; Z86.19 Personal history of other infectious and parasitic diseases; Z87.891 Personal history of nicotine dependence; Z99.89 Dependence on other enabling machines and devices
CPT/HCPCS: 43239; 88342 ×2; 88305 ×2; 00731; U0003; J2704; C9803; 731; 87635

== ENCOUNTER → 2019-12-28 | Outpatient (CLI) | payer MEDICARE, OTHER ==
--- NOTE | 2019-12-28 14:15 | RADIOLOGY REPORT (SQ) ---
EXAM DESCRIPTION: CT CHEST WITH IMAGES COMPLETED DATE/TIME: 12/28/2019 9:13 am REASON FOR STUDY: LUNG CANCER C34.32 MALIGNANT NEOPLASM OF LOWER LOBE, LEFT BRONCHUS OR SAURAV COMPARISON: 09/23/2019 TECHNIQUE: CT scan of the chest performed using helical scanning technique with dynamic intravenous contrast injection. Images reviewed with lung, soft tissue and bone windows. Reconstructed coronal and sagittal MPR and MIP images reviewed. All images stored on PACS. All CT scanners at this facility use dose modulation, iterative reconstruction, and/or weight based d osing when appropriate to reduce radiation dose to as low as reasonably achievable (ALARA). [facility]: Dose Right [facility]: CareDose [facility]: Dose Right [facility]: Teradose 4D [facility]: [employer] CONTRAST TYPE AND DOSE: 100 mL Omnipaque 350- low osmolar. RENAL FUNCTION: Creatinine 1.3 RADIATION DOSE: CT Rad equipment meets quality standard of care and radiation dose reduction techniq ues were employed. CTDIvol: 7.2 - 9.4 mGy. DLP: 1315 mGy-cm. . LIMITATIONS: None. FINDINGS: LUNGS AND PLEURA: Left lower lobe nodule that has a somewhat more rounded appearance, saurabh uring 5 x 5.4 cm on image 56. No significant increase in size overall. Nearby fiducial markers. Ce ntrilobular emphysema is seen in the upper lobes predominantly. No pleural effusion. HILAR AND MEDIASTINAL STRUCTURES: Small mediastinal nodes are slightly smaller than on the earlier st udy. HEART AND VASCULAR STRUCTURES: No aneurysm or dissection. No central pulmonary emboli. No pericardi al effusion. HARDWARE: None in the chest. UPPER ABDOMEN: See separate report of the CT of the abdomen. THYROID AND OTHER SOFT TISSUES: No masses. No adenopathy. BONES: Lytic lesions in T7 vertebra are larger. OTHER: No other significant finding. IMPRESSION: There lesion in the left lower lobe shows no overall change in size, but there is a rodriguez ging configuration with a more rounded appearance. Centrilobular emphysematous changes are present. Small mediastinal nodes are slightly smaller. Lytic lesions in the T7 vertebra are larger. TECHNICAL DOCUMENTATION: JOB ID: [id number] Quality ID # 436: Final reports with documentation of one or more dose reduction techniques (e.g., Au tomated exposure control, adjustment of the mA and/or kV according to patient size, use of iterative reconstruction technique) 2010 [employer]- All Rights Reserved Reading location - IP/workstation name: [email or web address]
--- NOTE | 2019-12-28 14:36 | RADIOLOGY REPORT (SQ) ---
EXAM DESCRIPTION: CT ABD/PELVIS WITH IV ONLY IMAGES COMPLETED DATE/TIME: 12/28/2019 9:13 am REASON FOR STUDY: LUNG CANCER C34.32 MALIGNANT NEOPLASM OF LOWER LOBE, LEFT BRONCHUS OR SAURAV COMPARISON: 09/23/2019 TECHNIQUE: CT scan of the abdomen and pelvis performed using helical scanning technique with dynamic intravenous contrast injection. No oral contrast. Images reviewed with lung, soft tissue, and bone windows. Reconstructed coronal and sagittal MPR images reviewed. Delayed images for evaluation of the urinary system also acquired. All images stored on PACS. All CT scanners at this facility use dose modulation, iterative reconstruction, and/or weight based d osing when appropriate to reduce radiation dose to as low as reasonably achievable (ALARA). [facility]: Dose Right [facility]: CareDose [facility]: Dose Right [facility]: Teradose 4D [facility]: [employer] CONTRAST TYPE AND DOSE: contrast/concentration: Isovue 350.00 mmol/ml; Total Contrast Delivered: 100 .0 ml; Total Saline Delivered: 72.0 ml RENAL FUNCTION: Creatinine 1.3 RADIATION DOSE: . LIMITATIONS: None. FINDINGS: LOWER CHEST: No significant findings. No nodules or infiltrates. LIVER: Normal size. No masses. No dilated ducts. SPLEEN: Small sclerotic lesions are stable. PANCREAS: No masses. No significant calcifications. No adjacent inflammation or peripancreatic fluid collections. Pancreatic duct not dilated. GALLBLADDER: No identified stones by CT criteria. No inflammatory changes to suggest cholecystitis. ADRENAL GLANDS: No significant masses or asymmetry. RIGHT KIDNEY AND URETER: No solid masses. No significant calcifications. No hydronephrosis or hyd roureter. LEFT KIDNEY AND URETER: No solid masses. No significant calcifications. No hydronephrosis or hydr oureter. AORTA AND VESSELS: No aneurysm. No dissection. Renal arteries, SMA, celiac without stenosis. RETROPERITONEUM: No retroperitoneal adenopathy, hemorrhage or masses. BOWEL AND PERITONEAL CAVITY: No masses or inflammatory changes. No free fluid or peritoneal masses. APPENDIX: Normal. PELVIS: There is slightly nodular protrusion of the prostate gland into the base of the bladder. Aashish dder is otherwise unremarkable. No pelvic mass or fluid collection. ABDOMINAL WALL: There are small uncomplicated inguinal hernias. BONES: Metastatic lesions are once again seen in the pelvis. OTHER: No other significant finding. IMPRESSION: Osseous metastases are relatively stable. Stable small sclerotic lesions are present in the spleen. There are uncomplicated inguinal hernias. There is nodular protrusion of the prostate gland into the base of the bladder. TECHNICAL DOCUMENTATION: JOB ID: [id number] Quality ID # 436: Final reports with documentation of one or more dose reduction techniques (e.g., Au tomated exposure control, adjustment of the mA and/or kV according to patient size, use of iterative reconstruction technique) 2010 [employer]- All Rights Reserved Reading location - IP/workstation name: [email or web address]
--- NOTE | 2019-12-28 14:46 | RADIOLOGY REPORT (SQ) ---
EXAM DESCRIPTION: MRI HEAD COMBO IMAGES COMPLETED DATE/TIME: 12/28/2019 9:54 am REASON FOR STUDY: LUNG CANCER C34.32 MALIGNANT NEOPLASM OF LOWER LOBE, LEFT BRONCHUS OR SAURAV COMPARISON: None. TECHNIQUE: Multiplanar imaging includes noncontrasted T1, T2, FLAIR, Diffusion with ADC map and post gadolinium contrast T1 sequences. Images stored on PACS. CONTRAST TYPE AND DOSE: 15 mL Prohance. RENAL FUNCTION: Not indicated. ACR Type II contrast agent associated with few, if any, unconfounded cases of NSF LIMITATIONS: None. FINDINGS: ANATOMY: No anomalies. Normal vascular flow voids. Pituitary fossa normal. CSF SPACES: Atrophy-induced prominence of CSF spaces and ventricles. CEREBRUM: High-signal intensity lesions scattered throughout the white matter on FLAIR imaging with d istribution suggesting chronic micro-vascular ischemic change. No evidence of hemorrhage, mass, extra axial fluid collection or acute ischemic change. No enhancing lesions. POSTERIOR FOSSA: No signal alteration. No hemorrhage. No edema, masses, or mass effect. Internal lotus tory canals, cerebello-pontine angles, mastoids normal. No enhancing lesions. ORBITS: No masses. Globes normal. PARANASAL SINUSES: No fluid levels. Mucosa normal. DIFFUSION: Normal. No evidence of recent infarct. OTHER: No other significant finding. IMPRESSION: No evidence of metastatic disease. EVIDENCE OF ACUTE STROKE: NO. TECHNICAL DOCUMENTATION: JOB ID: [id number] 2010 [employer]- All Rights Reserved Reading location - IP/workstation name: [email or web address]
== END ==
LOC: RAD 08:40
PROVIDERS: ATTEND Internal Medicine
DX: C34.32 Malignant neoplasm of lower lobe, left bronchus or lung (principal); C79.51 Secondary malignant neoplasm of bone; J43.2 Centrilobular emphysema
CPT/HCPCS: 82565; 70553; 71260; 74177; A9576

== ENCOUNTER 2020-03-10 09:55 | Day surgery (SDC) | payer MEDICARE, OTHER ==
--- NOTE | 2020-03-10 12:28 | Operative Report ---
Operative Report DATE OF SURGERY: 03/10/20 Operative Report: The risks benefits and alternatives of the procedure explained to the patient in detail and informed consent is obtained.A GIF Olympus video scope was inserted into the patient's mouth and hypopharynx, the esophagus is identified intubated and insufflated, the scope was then advanced through the esophagus stomach and duodenum, retroflexion maneuver is done, the esophagus stomach and first and second portions of the duodenum examined PREOPERATIVE DIAGNOSIS: Follow-up esophageal ulcer POSTOPERATIVE DIAGNOSIS: Healed esophageal ulcer. Gastritis status post biopsy. Duodenitis OPERATION: EGD with biopsy SURGEON: NANCY KATHLEEN ANESTHESIA: LMAC TISSUE REMOVED OR ALTERED: As noted above. COMPLICATIONS: None. ESTIMATED BLOOD LOSS: None. INTRAOPERATIVE FINDINGS: As noted above. PROCEDURE: Patient tolerated procedure well. No immediate postprocedure complications are noted. Patient is discharged in good condition. Discharge date 03/10/2020 Discharge diet: Regular. Discharge activity: Regular. 2 to 3-week follow-up to discuss findings. Patient is instructed to call the office or proceed to the emergency room should there be any further problems or questions. Wait on the pathology.
[2020-03-10 12:29] VITALS: BP 119/55
== END 2020-03-10 11:09 | disposition home or self-care (01) ==
LOC: OROUT 09:55
PROVIDERS: ATTEND Internal Medicine Gastroenterology
DX: K29.70 Gastritis, unspecified, without bleeding (principal); K29.80 Duodenitis without bleeding; K21.9 Gastro-esophageal reflux disease without esophagitis; G47.33 Obstructive sleep apnea (adult) (pediatric); Z86.19 Personal history of other infectious and parasitic diseases; Z87.891 Personal history of nicotine dependence; Z79.899 Other long term (current) drug therapy; Z79.01 Long term (current) use of anticoagulants; J44.9 Chronic obstructive pulmonary disease, unspecified; Z86.711 Personal history of pulmonary embolism; Z85.118 Personal history of other malignant neoplasm of bronchus and lung; Z92.21 Personal history of antineoplastic chemotherapy; Z86.73 Personal history of transient ischemic attack (TIA), and cerebral infarction without residual deficits
CPT/HCPCS: 43239; J2704

== ENCOUNTER → 2020-03-14 | Outpatient (CLI) | payer MEDICARE, OTHER ==
--- NOTE | 2020-03-14 09:40 | RADIOLOGY REPORT (SQ) ---
EXAM DESCRIPTION: CT CHEST WITH IMAGES COMPLETED DATE/TIME: 03/14/2020 8:23 am REASON FOR STUDY: (C34.32)MALIGNANT NEOPLASM OF LOWER LOBE, LEFT BRONCHUS OR LUNG C34.32 MALIGNANT NEOPLASM OF LOWER LOBE, LEFT BRONCHUS OR SAURAV COMPARISON: CT of the chest with contrast from 12/28/2019. TECHNIQUE: CT scan of the chest performed using helical scanning technique with dynamic intravenous contrast injection. Images reviewed with lung, soft tissue and bone windows. Reconstructed coronal and sagittal MPR and MIP images reviewed. All images stored on PACS. All CT scanners at this facility use dose modulation, iterative reconstruction, and/or weight based d osing when appropriate to reduce radiation dose to as low as reasonably achievable (ALARA). [facility]: Dose Right [facility]: CareDose [facility]: Dose Right [facility]: Teradose 4D [facility]: LessThan3 CONTRAST TYPE AND DOSE: 80 mL Omnipaque 350- low osmolar. RENAL FUNCTION: Creatinine 1.4 milligrams/deciliter. RADIATION DOSE: CT Rad equipment meets quality standard of care and radiation dose reduction techniq ues were employed. CTDIvol: 7.3 - 9.0 mGy. DLP: 1274 mGy-cm. LIMITATIONS: None. FINDINGS: LUNGS AND PLEURA: There is re- demonstration of upper lobe predominant centrilobular emphy sema, of mild bronchial wall thickening and of mild bronchiolectasis in the lower lobes. The 5 mm ro unded nodule in the superior segment of the left lower lower (adjacent to the interlobar fissure, milan ge 58 of series 6) is unchanged in size. The 8 mm spiculated nodule in the superior segment of the l eft lower lobe (image 62 of series 6) is also unchanged in size. There is no new or enlarging pulmon sveta nodule. There is no consolidation, pleural effusion or pneumothorax HILAR AND MEDIASTINAL STRUCTURES: Stable borderline enlarged right lower paratracheal lymph node (milan ge 26 of series 2) that measures 10 mm in short axis diameter. HEART AND VASCULAR STRUCTURES: Atherosclerotic calcification of the coronary arteries and thoracic ao rta. There is no pericardial effusion or cardiomegaly. HARDWARE: The tip of the right IJ single-lumen port terminates within the SVC. There are several fidu cial markers around the previously described nodules. UPPER ABDOMEN: Refer to the separate report of the CT of the abdomen. THYROID AND OTHER SOFT TISSUES: No mass or adenopathy. BONES: There are chronic fractures of the posterior right 11 and 12 ribs. The lytic lesions in the T 7 vertebral body that extends into the left pedicle and lamina and in the left anterolateral 4th rib (image 58 of series 601) are stable. The relative low attenuation appearance of the T6, T8, L1, L2 a nd L3 vertebral bodies is unchanged. There is no fracture or new osseous lesion. OTHER: No other finding. IMPRESSION: 1. Stable 5 mm rounded nodule in the superior segment of the left lower lower (adjacent to the interlobar fissure, image 58 of series 6). 2. Stable 8 mm spiculated nodule in the superior segment of the left lower lobe (image 62 of series 6). 3. Stable lytic lesions in the T7 vertebral body that extends into the left pedicle and lamina and i n the left anterolateral 4th rib (image 58 of series 601). TECHNICAL DOCUMENTATION: JOB ID: [id number] Quality ID # 436: Final reports with documentation of one or more dose reduction techniques (e.g., Au tomated exposure control, adjustment of the mA and/or kV according to patient size, use of iterative reconstruction technique) 2010 [employer]- All Rights Reserved Reading location - IP/workstation name: [email or web address]
--- NOTE | 2020-03-14 10:24 | RADIOLOGY REPORT (SQ) ---
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 TECHNIQUE: CT scan of the abdomen and pelvis performed using helical scanning technique with dynamic intravenous contrast injection. No oral contrast. Images reviewed with lung, soft tissue, and bone windows. Reconstructed coronal and sagittal MPR images reviewed. Delayed images for evaluation of the urinary system also acquired. All images stored on PACS. All CT scanners at this facility use dose modulation, iterative reconstruction, and/or weight based d osing when appropriate to reduce radiation dose to as low as reasonably achievable (ALARA). [facility]: Dose Right [facility]: CareDose [facility]: Dose Right [facility]: Teradose 4D [facility]: Coalfire CONTRAST TYPE AND DOSE: Contrast/concentration: Isovue 350.00 mmol/ml; Total Contrast Delivered: 80. 0 ml; Total Saline Delivered: 40.0 ml RENAL FUNCTION: Creatinine 1.4 milligrams/deciliter. LIMITATIONS: None. FINDINGS: LOWER CHEST: Refer to the separate report of the CT of the chest. LIVER: The morphology of the liver is noncirrhotic. The portal veins are patent. There is no hepati c mass. SPLEEN: Stable hypervascular lesion in the inferior aspect of the spleen (image 29 of series 3). 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 There is no acute abnormality of the pancreas. GALLBLADDER: No acute abnormality of the gallbladder. ADRENAL GLANDS: No mass or asymmetry. RIGHT KIDNEY AND URETER: The 2.3 x 2 cm cystic lesion in the interpolar portion of the kidney is unch anged. The subcentimeter low-attenuation lesions that arise from the anterior cortex of the lower po le of the kidney (image 49 of series 3) and medial cortex of the interpolar portion of the kidney (im age 40 of series 3) are also unchanged. There is no solid mass, hydronephrosis, nephrolithiasis, hyd roureter or ureterolithiasis. LEFT KIDNEY AND URETER: The subcentimeter low-attenuation lesion in the upper pole of the kidney (milan ge 34 series 3) is unchanged. There is no solid mass, hydronephrosis, nephrolithiasis, hydroureter o r ureterolithiasis. AORTA AND VESSELS: Atherosclerotic calcification of the abdominal aorta and iliac arteries. There is no abdominal aortic aneurysm. RETROPERITONEUM: No retroperitoneal adenopathy, hemorrhage or mass. BOWEL AND PERITONEAL CAVITY: Colonic diverticulosis without diverticulitis. There is no bowel obstru ction, bowel wall thickening or pericolonic/ perienteric inflammation. There is no mesenteric adenop athy, free intraperitoneal fluid or mesenteric/ omental inflammation. APPENDIX: Normal. PELVIS: The prostate gland measures 5 cm in transverse diameter. The wall of the urinary bladder is diffusely thickened (unchanged compared to the CT from 12/28/2019). There is no perivesicular inflamm ation. ABDOMINAL WALL: Fat containing umbilical hernia. The inguinal canals are patulous BONES: Stable mixed lytic and sclerotic osseous lesions in the pelvis. OTHER: No other findings. IMPRESSION: 1. Stable mixed lytic and sclerotic osseous lesions. 2. 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 3. Prostatomegaly. TECHNICAL DOCUMENTATION: JOB ID: [id number] Quality ID # [id number]: Final reports with documentation of one or more dose reduction techniques (e.g., Au tomated exposure control, adjustment of the mA and/or kV according to patient size, use of iterative reconstruction technique) 2010 [employer]- All Rights Reserved Reading location - IP/workstation name: [email or web address]
== END ==
LOC: RAD 07:48
PROVIDERS: ATTEND Internal Medicine
DX: C34.32 Malignant neoplasm of lower lobe, left bronchus or lung (principal); D73.89 Other diseases of spleen; N28.9 Disorder of kidney and ureter, unspecified
CPT/HCPCS: 71260; 731; 74177; 82565; 88305